=== PATIENT | male | born 1975 | race Caucasian/White ===

== ENCOUNTER 2021-01-26 08:31 | Outpatient (REF) | payer OTHER, SELFPAY ==
[2021-01-26 09:39] LABS: MANUAL DIFF FLAG NO
[2021-01-26 09:53] LABS: Basophils Absolute Auto 0.1 X10*3/uL (0.0-0.2); Basophils Percent Auto 0.8 % (0-2); Eosinophils Absolute Auto 0.2 X10*3/uL (0.0-0.4); Eosinophils Percent Auto 2.5 % (0-4); Hematocrit 45.2 % (42-52); Hemoglobin 14.9 g/dl (14.0-18.0); Imm Gran Abs Auto 0.03 X10*3/uL (0.00-0.03); Imm Gran Pct Auto 0.5 % (0.0-0.4); Lymphocytes Absolute Auto 1.9 X10*3/uL (1.2-4.9); Lymphocytes Percent Auto 31.3 % (20-40); Mean Corpuscular Hemoglobin 29.2 pg (27.0-33.0); Mean Corpuscular Volume 88.5 fL (80-98); Mean Platelet Volume 9.7 fL (9.4-12.4); Monocytes Absolute Auto 0.5 X10*3/uL (0.1-1.2); Monocytes Percent Auto 8.3 % (2-11); Neutrophils Absolute Auto 3.3 X10*3/uL (2.0-8.3); Neutrophils Percent Auto 56.6 % (45-73); Platelet Count 215 X10*3/uL (160-400); Red Blood Count 5.11 X10*6/uL (4.60-5.80); Red Cell Distribution Width 11.9 % (11.0-16.0); White Blood Count 5.9 X10*3/uL (4.8-10.8)
[2021-01-26 10:08] LABS: Alanine Aminotransferase 30 U/L (0-40); Albumin Level 4.2 g/dL (3.5-5.0); Alkaline Phosphatase 79 U/L (39-117); Anion Gap 12 (12-20); Aspartate Amino Transferase 17 U/L (5-37); Bilirubin Total 0.6 mg/dL (0.0-1.0); Blood Urea Nitrogen 14 mg/dL (9-16); Calcium 9.3 mg/dL (8.4-10.2); Carbon Dioxide 28 mmol/L (22-29); Chloride 106 mmol/L (96-108); Cholesterol 181 mg/dL; Estimated Glomerular Filt Rate > 60; Glucose Fasting 106 mg/dL (60-99); HDL Cholesterol 42 mg/dL; LDL Cholesterol Calculated 106 mg/dl; Potassium 4.5 mmol/L (3.3-5.1); Sodium 141 mmol/L (135-145); Total Protein 6.6 g/dL (6.5-8.0); Triglycerides 166 mg/dL
== END 2021-01-26 08:32 | disposition home or self-care (01) ==
LOC: HO.LAB 08:31
PROVIDERS: PCP Internal Medicine; Visit Provider Internal Medicine
DX: D64.9 Anemia, unspecified (principal); E78.5 Hyperlipidemia, unspecified; I10 Essential (primary) hypertension
CPT/HCPCS: 36415; 80053; 80061; 85025

== ENCOUNTER 2021-01-28 13:43 | Outpatient (REF) | payer OTHER, SELFPAY ==
--- NOTE | ~2021-01-28 | CT_ITS ---
EXAMINATION: CT ABDOMEN AND PELVIS WITH CONTRAST CLINICAL INFORMATION: R10.9 - Unspecified abdominal pain COMPARISON: None TECHNIQUE: Multidetector volumetric images were obtained from the superior aspect of the liver through the pubic symphysis following administration 85 mL of Omnipaque 350 intravenous contrast. Sagittal and coronal reformatted images were obtained on the technologist's workstation. Oral contrast: Yes This CT examination was performed using dose optimization techniques as appropriate, variously including the following: *Automated exposure control *Adjustment of mA and/or kV according to patient size (this includes techniques or standardized protocols for targeted exams where dose is matched to indication/reason for exam; i.e. extremities or head) *Use of iterative reconstruction technique DLP: 1181 mGy-cm FINDINGS: LUNG BASES: The visualized lung bases are unremarkable. LIVER, GALLBLADDER, AND BILIARY TREE: The liver is normal in size, shape, and attenuation. No focal hepatic lesion or biliary ductal dilatation is present. The gallbladder is unremarkable with no evidence of radiopaque gallstones, gallbladder wall thickening, or obvious pericholecystic inflammatory changes. PANCREAS: Unremarkable. SPLEEN: Upper limits of normal, 13.7 cm sagittal dimension but only 10.4 cm coronal. Homogeneous. ADRENAL GLANDS: Normal. KIDNEYS AND URETERS: The kidneys are normal in size and smooth in contour and enhance symmetrically. There is no hydronephrosis, hydroureter, or perinephric stranding. BLADDER: Unremarkable. GASTROINTESTINAL TRACT: There are focal inflammatory changes adjacent to the anterior aspect distal descending colon with central fatty attenuation, fine peripheral surrounding rim, and induration in the mesentery. The fatty component measures 0.7 x 2.9 x 2.2 cm. The findings are consistent with appendagitis epiploica. There is no proximal obstruction, pneumatosis, ascites, or fluid collection. The appendix is normal. The remainder of the bowel is unremarkable. There is gastric distention with retained food contents. The oral contrast is seen distally in small bowel and right colon. No gastric obstruction. ABDOMINAL WALL: Borderline fat-containing left inguinal hernia under 2 cm. LYMPH NODES: No lymphadenopathy. VASCULAR: Unremarkable. PELVIC VISCERA: Unremarkable. OSSEOUS STRUCTURES: Unremarkable. CT/CT abdomen pelvis w con IMPRESSION: 1. Findings consistent with appendagitis epiploica anterior left lower quadrant adjacent to distal descending colon. 2. Normal appendix. No bowel obstruction, ascites, or fluid collection.
[2021-01-28] MEDS: iohexoL 350 MG/ML 100 ML INFUS..BTL IV (16:07)
== END 2021-01-28 13:44 | disposition home or self-care (01) ==
LOC: HO.CT 13:43
PROVIDERS: PCP Internal Medicine; Visit Provider Internal Medicine
DX: R10.9 Unspecified abdominal pain (principal)
CPT/HCPCS: 74177; Q9967

== ENCOUNTER 2021-06-24 09:49 | Outpatient (REF) | payer OTHER, SELFPAY ==
--- NOTE | ~2021-06-24 | XR_ITS ---
EXAMINATION: XR CHEST CLINICAL INFORMATION: Cough COMPARISON: None TECHNIQUE: 2 views of the chest were obtained. FINDINGS: No significant abnormality is noted involving the heart, lungs, mediastinum, bony thorax or soft tissues. XR/XR chest 2V IMPRESSION: Unremarkable examination.
== END 2021-06-24 09:50 | disposition home or self-care (01) ==
LOC: HO.XRAY 09:49
PROVIDERS: PCP Internal Medicine; Visit Provider Nurse Practitioner Acute Care
DX: R05.9 Cough, unspecified (principal)
CPT/HCPCS: 71046

== ENCOUNTER → 2021-10-04 13:17 | Outpatient (BNVA) | payer OTHER, SELFPAY | PROVIDERS: PCP Internal Medicine; Visit Provider Surgery Vascular Surgery | DX: I83.11 Varicose veins of right lower extremity with inflammation (principal); Z87.891 Personal history of nicotine dependence | CPT/HCPCS: 99212 ==

== ENCOUNTER 2021-10-11 13:59 | Outpatient (REF) | payer OTHER, SELFPAY ==
--- NOTE | 2021-10-11 17:28 | PFT_ITS ---
FLOWS: FEV1 103% of predicted at 4.13 L. FVC 99% of predicted at 5.12 L. FEV1 to FVC ratio of 0.81. No bronchodilator response except in small to medium airways. LUNG VOLUMES: Total lung capacity 107% of predicted at 7.44 L. Residual volume 117% of predicted at 2.35 L. Slow vital capacity 102% of predicted at 5.09 L. Expiratory reserve volume 36% of predicted at 0.56 L. Diffusion capacity is normal. IMPRESSION: No obstructive or restrictive ventilatory defect. No bronchodilator response except in small to medium airways. Decreased expiratory reserve volume suggests extrathoracic restriction, likely secondary to abdominal obesity. Jw Lebron MD AP/MODL / [id number]
== END 2021-10-11 14:00 | disposition home or self-care (01) ==
LOC: HO.RESP 13:59
PROVIDERS: PCP Internal Medicine; Visit Provider Internal Medicine
DX: R05.8 Other specified cough (principal); R06.2 Wheezing
CPT/HCPCS: 94060; 94727; 94729

== ENCOUNTER 2021-10-13 12:53 | Outpatient (REF) | payer OTHER, SELFPAY ==
--- NOTE | ~2021-10-13 | US_ITS ---
EXAMINATION: BILATERAL LOWER EXTREMITY VENOUS ULTRASOUND (REFLUX EXAM) CLINICAL INDICATION: Bilateral lower extremity varicose veins. COMPARISON: None TECHNIQUE: Color flow triplex imaging and compression Doppler was performed to evaluate both the deep and the superficial systems bilaterally. To evaluate the superficial system, the examination was performed in the upright position. Color-flow Doppler ultrasound and compression ultrasound were utilized. In addition, maneuvers were utilized to demonstrate reflux. FINDINGS: SUPERFICIAL ULTRASOUND WITH DOPPLER OF RIGHT LOWER EXTREMITY GREAT SAPHENOUS VEIN: Saphenofemoral junction: 0.8 cm Max diameter: 0.8 cm Min diameter: 0.3 cm Reflux: No evidence of reflux greater than 0.5 seconds. DUPLICATED MEDIAL GREAT SAPHENOUS VEIN: Max Diameter: None Imaged Reflux: NA DUPLICATED LATERAL GREAT SAPHENOUS VEIN: Diameter: 0.4 cm at the junction. Reflux: None SMALL SAPHENOUS VEIN: Proximal Calf: 0.3 cm Distal Calf: 0.4 cm Reflux: No evidence of reflux. VEIN OF GIACOMINI: None Imaged. PERFORATORS: Location: Proximal and distal calf measuring 2 mm. Reflux: None VARICOSITIES: Location: None Imaged Reflux: NA DEEP VENOUS ULTRASOUND OF THE RIGHT LOWER EXTREMITY: Common Femoral Vein: Compressible, normal respiratory variation and augmented flow. Femoral vein: Compressible, normal color flow and augmentation. Popliteal Vein: Compressible, normal augmentation. Deep Reflux: There is greater than 0.6 seconds of reflux within the popliteal vein. Dobson's Cyst: There is no evidence of a Dobson's cyst. SUPERFICIAL ULTRASOUND WITH DOPPLER OF LEFT LOWER EXTREMITY GREAT SAPHENOUS VEIN: Saphenofemoral junction: 0.9 cm Max diameter: 0.9 cm Min diameter: 0.3 cm Reflux: No evidence of reflux. DUPLICATED MEDIAL GREAT SAPHENOUS VEIN: Max Diameter: None Imaged Reflux: NA DUPLICATED LATERAL GREAT SAPHENOUS VEIN: Diameter: 0.4 cm at the junction. Reflux: None SMALL SAPHENOUS VEIN: Proximal Calf: 0.3 cm Distal Calf: 0.3 cm Reflux: There is reflux throughout the small saphenous vein beginning at the proximal calf measuring greater than 1.3 seconds. VEIN OF GIACOMINI: None Imaged. PERFORATORS: Location: Proximal, mid and distal calf measuring 2 mm. Reflux: None VARICOSITIES: Location: Arising from the small saphenous vein, proximal thigh and at knee measuring between 3 and 4 mm. Reflux: The varicosity arising from the small saphenous vein demonstrates greater than 1.3 seconds of reflux. DEEP VENOUS ULTRASOUND OF THE LEFT LOWER EXTREMITY: Common Femoral Vein: Compressible, normal respiratory variation and augmented flow. Femoral vein: Compressible, normal color flow and augmentation. Popliteal Vein: Compressible, normal augmentation. Deep Reflux: There is no evidence of reflux in the deep system in either the common femoral vein or the popliteal vein. Dobson's Cyst: There is no evidence of a Dobson's cyst. US/US venous duplex LE BI IMPRESSION: 1. Left small saphenous venous insufficiency and left lower extremity varicosities. 2. Right popliteal deep venous insufficiency. 3. No evidence of DVT.
== END 2021-10-13 12:54 | disposition home or self-care (01) ==
LOC: HO.US 12:53
PROVIDERS: PCP Internal Medicine; Visit Provider Surgery Vascular Surgery
DX: I83.11 Varicose veins of right lower extremity with inflammation (principal)
CPT/HCPCS: 93970

== ENCOUNTER 2021-11-14 08:10 | Outpatient (REF) | payer OTHER, SELFPAY ==
--- NOTE | ~2021-11-14 | FL_ITS ---
EXAMINATION: XR FLUOROSCOPY UPPER GI WITH AIR CLINICAL INFORMATION: Cough. COMPARISON: None. TECHNIQUE: Routine upper GI air-contrast study was performed. FINDINGS: Following oral administration of thick barium and effervescent granules, there is normal propagation of bolus from the oral cavity through the pharynx and esophagus and into the stomach without any evidence of obstruction, narrowing or stricture. On placing patient supine and prone the course, caliber and peristalsis of stomach are normal. There is mild flocculation of barium suspicious for increased hyperacidity. There is mild gastroesophageal reflux without hiatal hernia. Incidental finding of an small diverticulum in the third segment of the duodenum. FLUOROSCOPY TIME: 1.8 minutes. DOSE AREA PRODUCT: 34.262 uGy-m2 (microgray-meter squared). FL/FL upper GI w air IMPRESSION: Moderate gastroesophageal reflux without hiatal hernia. Suspect hyperacidity. Small diverticulum in the third segment of the duodenum.
== END 2021-11-14 08:11 | disposition home or self-care (01) ==
LOC: HO.XRAY 08:10
PROVIDERS: PCP Internal Medicine; Visit Provider Internal Medicine
DX: R05.8 Other specified cough (principal); K21.9 Gastro-esophageal reflux disease without esophagitis
CPT/HCPCS: 74246

== ENCOUNTER 2022-11-14 05:55 | Outpatient (REF) | payer OTHER, SELFPAY ==
[2022-11-15 03:41] LABS: Syphilis Screen Nonreactive (Nonreactive)
[2022-11-15 03:50] LABS: HIV AB/AG Nonreactive (Nonreactive); HIV Num 1 0.09 S/CO (0.00-0.99)
[2022-11-23 11:58] LABS: HSV 1 IgM IFA Negative (Negative); HSV 2 IgM IFA Negative (Negative)
== END 2022-11-14 05:56 | disposition home or self-care (01) ==
LOC: HO.LAB 05:55
PROVIDERS: PCP Internal Medicine; Visit Provider Internal Medicine
DX: Z11.4 Encounter for screening for human immunodeficiency virus [HIV] (principal); Z20.2 Contact with and (suspected) exposure to infections with a predominantly sexual mode of transmission
CPT/HCPCS: 36415; 86695; 86696; 86780; 87389

== ENCOUNTER 2023-01-16 05:58 | Outpatient (REF) | payer OTHER, SELFPAY ==
[2023-01-16 06:12] LABS: MANUAL DIFF FLAG NO
[2023-01-16 07:12] LABS: Basophils Absolute Auto 0.1 X10*3/uL (0.0-0.2); Basophils Percent Auto 1.2 % (0-2); Eosinophils Absolute Auto 0.1 X10*3/uL (0.0-0.4); Eosinophils Percent Auto 2.4 % (0-4); Hematocrit 45.2 % (42.0-52.0); Imm Gran Abs Auto 0.03 X10*3/uL (0.00-0.03); Imm Gran Pct Auto 0.6 % (0.0-0.4); Lymphocytes Absolute Auto 1.6 X10*3/uL (1.2-4.9); Lymphocytes Percent Auto 32.3 % (20-40); Mean Corpuscular HGB Conc 33.2 g/dl (31.0-36.0); Mean Corpuscular Hemoglobin 29.2 pg (27.0-33.0); Mean Corpuscular Volume 88.1 fL (80.0-98.0); Mean Platelet Volume 9.5 fL (9.4-12.4); Monocytes Absolute Auto 0.5 X10*3/uL (0.1-1.2); Monocytes Percent Auto 10.8 % (2-11); Neutrophils Absolute Auto 2.6 x10*3/uL (2.0-8.3); Neutrophils Percent Auto 52.7 % (45-73); Platelet Count 223 X10*3/uL (160-400); Red Blood Count 5.13 X10*6/uL (4.60-5.80); Red Cell Distribution Width 11.9 % (11.0-16.0); White Blood Count 4.9 X10*3/uL (4.8-10.8)
[2023-01-16 07:23] LABS: Appearance Urine Turbid; Color Urine Dark Yellow; Glucose Urine UA Negative (Negative); Leukocyte Esterase Urine Negative (Negative); Nitrite Urine Negative (Negative); PH 5.5 (5.0-9.0); Specific Gravity - Urine 1.025 (1.005-1.025); Urine Blood Negative (Negative); Urine Ketones Negative (Negative); Urine Protein Negative (Neg-Trace)
[2023-01-16 07:56] LABS: Alanine Aminotransferase 36 U/L (0-40); Albumin Level 4.1 g/dL (3.5-5.0); Alkaline Phosphatase 76 U/L (39-117); Anion Gap 11 (12-20); Aspartate Amino Transferase 21 U/L (5-37); Bilirubin Total 0.9 mg/dL (0.0-1.0); Blood Urea Nitrogen 18 mg/dL (9-16); Calcium 9.2 mg/dL (8.4-10.2); Carbon Dioxide 29 mmol/L (22-29); Chloride 106 mmol/L (96-108); Cholesterol 173 mg/dL; Estimated Glomerular Filt Rate > 60; Glucose Fasting 113 mg/dL (60-99); HDL Cholesterol 35 mg/dL; LDL Cholesterol Calculated 99 mg/dl; Potassium 4.3 mmol/L (3.3-5.1); Sodium 142 mmol/L (135-145); Total Protein 6.6 g/dL (6.5-8.0); Triglycerides 198 mg/dL
[2023-01-16 08:02] LABS: Prostate Specific Antigen Scr 0.75 ng/mL (<0.05-4.0)
[2023-01-16 08:14] LABS: TSH reflex Free T4 1.63 uIU/mL (0.32-4.0); Vitamin D 25-OH Total 59.5 ng/mL (>30)
[2023-01-16 08:33] LABS: Estimated Average Glucose 105 mg/dL; Hemoglobin A1c % 5.3 %
== END 2023-01-16 05:59 | disposition home or self-care (01) ==
LOC: HO.LAB 05:58
PROVIDERS: PCP Internal Medicine; Visit Provider Internal Medicine
DX: Z00.00 Encounter for general adult medical examination without abnormal findings (principal); Z12.5 Encounter for screening for malignant neoplasm of prostate; I10 Essential (primary) hypertension; E78.00 Pure hypercholesterolemia, unspecified; R30.0 Dysuria; R73.9 Hyperglycemia, unspecified; E55.9 Vitamin D deficiency, unspecified
CPT/HCPCS: 36415; 80053; 80061; 81003; 82306; 83036; 84153; 84443; 85025

== ENCOUNTER 2023-02-14 13:42 | Outpatient (AMB) | payer OTHER, SELFPAY ==
[2023-02-14 13:44] VITALS: BP 150/80; PULSE 84; O2SAT 97; BMI 35.5
--- NOTE | 2023-02-14 13:44 | MHC.PC.OV ---
Vital Signs 02/14/23 13:44 Height 5 ft 10 in Weight 247 lb 6 oz BMI 35.5 BP 150/80 H Blood Pressure Location Lt brachial Position Sitting Pulse 84 Pulse Source Pulse Oximeter Pulse Oximetry (%) 97 Oxygen Delivery Method Room Air Intake Visit Reasons: [facility] Consultant Required: No Accompanied by: Self / Same As Patient Allergies No Known Allergies Allergy (Verified 02/19/23 04:09) Medication List - Last Reconciled 02/19/23 by Jewel Ocampo MD aspirin (Adult Low Dose Aspirin) 81 mg PO DAILY hydralazine 50 mg PO BID 90 days ibuprofen 800 mg PO Q8H PRN 14 days losartan 100 mg PO DAILY omeprazole 20 mg PO DAILY tamsulosin 0.4 mg PO DAILY Tobacco use date assessed: 02/14/23 Dental Screening Dental Screen Date: 02/14/23 Did you have a dental visit in the last 12 months?: No Did you have a dental problem in the last 6 months where you did not have access to dental care?: No Was dental information given to patient?: Patient has dentist HPI [facility] HPI Details Patient comes in today for his annual physical examination States that he feels okay Denies any headaches or dizziness Denies any chest pain, no shortness of breath No nausea /vomiting, no abdominal pain No change in bowel habits noted Denies any acute urinary symptoms Had his follow-up labs done last month - to discuss his results [facility] Medical History (Updated 02/19/23 @ 04:27 by Jewel Ocampo MD) BPH (benign prostatic hyperplasia) Dyslipidemia Essential hypertension GERD without esophagitis Impaired glucose tolerance Obesity (BMI 30-39.9) Surgical History History of prostate surgery Family History Father Diabetes Hypertension Mother Hypertension Family/Other Asthma Social History Housing: House Alcohol intake: current Alcohol intake frequency: a few times a month Alcohol type: beer Patient Tobacco Use Status: Former Tobacco user Tobacco use type: Cigarette e-Cigarette/Vaping Use: Never Used Second Hand Smoke Exposure: No service: No Current occupational status: employed Current occupational exposures/hazards: No Cognitive needs: No Hearing needs: No Vision needs: No Questionnaire PHQ-9 Over the last 2 weeks, how often have you been bothered by any of the following problems? 1. Little interest or pleasure in doing things: not at all 2. Feeling down, depressed, or hopeless: not at all 3. Trouble falling or staying asleep, or sleeping too much: not at all 4. Feeling tired or having little energy: not at all 5. Poor appetite or overeating: not at all 6. Feeling bad about yourself - or that you are a failure or have let yourself or your family down: not at all 7. Trouble concentrating on things, such as reading the newspaper or watching television: not at all 8. Moving or speaking so slowly that other people could have noticed. Or the opposite - being so fidgety or restless that you have been moving around a lot more than usual: not at all 9. Thoughts that you would be better off or of hurting yourself in some way: not at all Total score: 0 Depression Screening Interpretation: Negative [id number] - PHQ-9 Billing: Yes Source: Developed by Drs. Robert Stephenson, Noelle Hirsch, Luan Collazo and colleagues, with an educational vanessa from [employer]. Thrive Questionnaire Date Thrive assessed: 02/14/23 I am a: Patient What is your living situation today?: I have a steady place to live Within the past 12 months, did the food you bought not last and you didn't have the money to get more?: Never true Within the past 12 months, did you worry whether your food would run out before you got money to buy more?: Never true Do you have trouble paying for medicines?: No Do you have trouble getting transportation to medical appointments?: No Do you have trouble paying your heating and electricity bill?: No Do you have trouble taking care of your child, family member or friend?: No Do you have trouble with day-to-day activities such as bathing, preparing meals, shopping, managing finances, etc.?: No Are you currently unemployed and looking for a job?: No Are you interested in more education?: No Please select the resources that you would like help with: None Currently or been in a relationship where the following occur: no concerns reported AUDIT C Alcohol Use Questionnaire (AUDIT-C) 1. How often do you have a drink containing alcohol?: 2-4 times a month 2. How many drinks containing alcohol do you have on a typical day when you are drinking?: 1 or 2 3. How often do you have six or more drinks on one occasion?: Never Total Score: 2 Score Reviewed/Action Taken: Yes ARLEEN-7 AMB Questionnaire ARLEEN-7 Date ARLEEN - 7 assessed: 02/14/23 Feeling nervous, anxious, or on edge: 0 = Not at all Not being able to stop or control worryin = Not at all Worrying too much about different things: 0 = Not at all Trouble relaxin = Not at all Being so restless that it is hard to sit still: 0 = Not at all Becoming easily annoyed or irritable: 0 = Not at all Feeling afraid as if something awful might happen: 0 = Not at all Total ARLEEN-7 score (0-4 normal; 5-9 mild; 10-14 moderate; 15-21 severe): 0 Source: Developed by Drs. Robert Stephenson, Noelle Hirsch, Luan Collazo and colleagues, with an educational vanessa from [employer]. Review of Systems Const Denies chills, Denies fatigue, Denies fever(s), Denies headache(s), Denies malaise and Denies weakness Eyes Denies blurry vision, Denies change in vision, Denies irritation and Denies itchy eyes ENT Denies dysphagia, Denies dizziness, Denies otalgia, Denies headache(s), Denies nasal congestion, Denies neck pain, Denies odynophagia and Denies sore throat Card Denies chest pain, Denies rapid heart rate, Denies irregular heart rhythm, Denies palpitations and Denies dyspnea Resp Denies chest congestion, Denies cough, Denies dyspnea and Denies wheezing GI Denies abdominal pain, Denies bloating, Denies constipation, Denies dysphagia, Denies heartburn, Denies diarrhea, Denies nausea, Denies odynophagia and Denies vomiting Denies hematuria, Denies difficulty urinating, Denies dysuria, Denies urinary frequency and Denies urinary urgency Musc Denies back pain, Denies arthralgias, Denies joint swelling, Denies muscle weakness and Denies neck pain Skin/Breast Denies change in pigmentation, Denies lesions, Denies rash and Denies unusual bruising Neuro Denies dizziness, Denies headache(s), Denies paresthesias and Denies weakness Endo Denies fatigue and Denies palpitations Aller/Immun Denies itchy eyes and Denies wheezing Physical exam (Primary Care) Vital Signs: Last Vital Signs Pulse 84 02/14/23 13:44 BP 150/80 H 02/14/23 13:44 Pulse Ox 97 02/14/23 13:44 Oxygen Delivery Method Room Air 02/14/23 13:44 BMI result Body Mass Index 35.5 Tobacco/Smoking Status: Tobacco use Status Tobacco use date assessed 02/14/23 02/14/23 13:49 Patient Tobacco Use Status Former Tobacco user 02/14/23 13:44 Tobacco use type Cigarette 02/14/23 13:44 e-Cigarette/Vaping Use Never Used 02/14/23 13:44 PHQ-9: PHQ-9 Score PHQ-9: Total score 0 02/14/23 14:42 Depression Screening Interpretation: Negative Thrive Assessment: Date of Thrive Assessment Date Thrive assessed 02/14/23 02/14/23 13:49 Currently or been in a relationship where the following occur: no concerns reported Const General: no acute distress, alert and awake Orientation/consciousness: patient oriented x3 HENMT Head: Yes normocephalic and Yes atraumatic Ears: external ears normal, TM's normal bilaterally and EAC's normal General nose exam: No nasal discharge present Face and sinus: Yes normal facial exam and Yes sinuses nontender Teeth and gingiva: dentition normal Throat: Yes posterior oropharynx normal and Yes tonsils normal (no TP congestion) Eyes Eyelids: Yes eyelids normal Conjunctivae: conjunctivae normal Pupils: Equal, round and reactive pupils present EOM: EOMs intact bilaterally Neck Neck: Yes no lymphadenopathy and Yes supple Thyroid: Thyroid normal Resp Auscultation: clear to auscultation bilaterally, no rales and no wheezes Cardio Rate: regular rate Rhythm: regular rhythm Heart sounds: no murmurs GI Palpation (GI): Soft to palpation, nontender and No hepatosplenomegaly present Auscultation: normal bowel sounds General: Yes no CVA tenderness Back/Spine/Pelvis Back: no CVA tenderness Thoracic/Lumbar Spine: thoracic and lumbar spine normal to inspection Skin Lesions: no lesions Rashes: no rashes Neuro General: patient oriented x3, moves all extremities, no focal motor deficits and CN's II-XI intact bilaterally Cranial nerves: Yes Equal, round and reactive pupils present Cognition (Neuro): normal cognition Gait exam (Neuro): Normal gait present Extrem General: Yes no clubbing, cyanosis or edema Results Reviewed Results Reviewed: Laboratory Tests 01/16/23 01/16/23 01/16/23 06:10 06:11 06:11 WBC 4.9 Hgb 15.0 Hct 45.2 Plt Count 223 Sodium 142 Potassium 4.3 Creatinine 0.82 Estimated GFR > 60 Fasting Glucose 113 H Hemoglobin A1c % AST 21 ALT 36 Triglycerides 198 Cholesterol 173 LDL Cholesterol, Calc 99 HDL Cholesterol 35 PSA Screen 25-OH Vitamin D Total 59.5 TSH 1.63 Ur Specific [place] 1.025 Urine Protein Negative Urine Glucose (UA) Negative Urine Blood Negative 01/16/23 01/16/23 06:11 06:11 WBC Hgb Hct Plt Count Sodium Potassium Creatinine Estimated GFR Fasting Glucose Hemoglobin A1c % 5.3 AST ALT Triglycerides Cholesterol LDL Cholesterol, Calc HDL Cholesterol PSA Screen 0.75 25-OH Vitamin D Total TSH Ur Specific [place] Urine Protein Urine Glucose (UA) Urine Blood Assessment and Plan Assessment & Plan (1) Annual physical exam: Code(s): Z00.00 - Encounter for general adult medical examination without abnormal findings Plan: Results of his labs done last month reviewed and discussed with patient (2) Essential hypertension: Code(s): I10 - Essential (primary) hypertension Plan: Reinforced low sodium diet - goal is systolic BP of 120 mm or less Patient states that his blood pressure remains elevated/high most of the time when he checks it and he is concerned about this as 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 Continue Losartan 100 mg QD; will increase his Hydralazine to 50 mg BID (3) Dyslipidemia: Code(s): E78.5 - Hyperlipidemia, unspecified Plan: Reinforced low cholesterol diet (4) Impaired glucose tolerance: Code(s): R73.02 - Impaired glucose tolerance (oral) Plan: Reinforced low calorie diet/exercise as tolerated FBS was elevated at 113 mg/dL on his recent labs but his HgbA1c was normal at 5.3% (5) GERD without esophagitis: Code(s): K21.9 - Gastro-esophageal reflux disease without esophagitis Plan: Dietary restrictions reinforced Continue Omeprazole 20 mg QD (6) BPH (benign prostatic hyperplasia): Code(s): N40.0 - Benign prostatic hyperplasia without lower urinary tract symptoms Plan: S/P prostate surgery in 08/2016 Continue Tamsulosin 0.4 mg Q HS Follow up with urology as scheduled (7) Obesity (BMI 30-39.9): Code(s): E66.9 - Obesity, unspecified Plan: Reinforced diet/exercise as tolerated/lose weight (8) Colon cancer screening: Code(s): Z12.11 - Encounter for screening for malignant neoplasm of colon Plan: Will refer for screening colonoscopy Plan Follow up in 3 months Orders: Referrals Gastroenterology Referral Z12.11 - Encounter for screening for malignant neoplasm of colon Medications: Changed From hydralazine 25 mg PO BID 90 days 180 tabs 1RF To hydralazine 50 mg PO BID 90 days 180 tabs 1RF Coding Level of Care Code Est Pt Prev Care 40-64y(12630) Diagnoses Annual physical exam Z00.00 Essential hypertension I10 Dyslipidemia E78.5 Impaired glucose tolerance R73.02 GERD without esophagitis K21.9 BPH (benign prostatic hyperplasia) N40.0 Obesity (BMI 30-39.9) E66.9 Colon cancer screening Z12.11
== END 2023-02-14 14:42 | disposition home or self-care (01) ==
PROVIDERS: Visit Provider Internal Medicine
DX: Z00.00 Encounter for general adult medical examination without abnormal findings (principal); I10 Essential (primary) hypertension; Z68.35 Body mass index [BMI] 35.0-35.9, adult; E66.9 Obesity, unspecified; K21.9 Gastro-esophageal reflux disease without esophagitis; E78.5 Hyperlipidemia, unspecified; R73.02 Impaired glucose tolerance (oral); N40.0 Benign prostatic hyperplasia without lower urinary tract symptoms; Z12.11 Encounter for screening for malignant neoplasm of colon
CPT/HCPCS: 99396

== ENCOUNTER 2023-05-18 13:24 | Outpatient (AMB) | payer OTHER, SELFPAY ==
--- NOTE | 2023-05-18 13:32 | MHC.OFFVIS ---
Intake Vital Signs 05/18/23 13:33 Height 5 ft 10 in Weight 239 lb 8 oz BMI 34.4 BP 150/90 H Blood Pressure Location Lt brachial Position Sitting Respiration 17 Pulse 95 Pulse Source Pulse Oximeter Pulse Oximetry (%) 97 Oxygen Delivery Method Room Air Intake Visit Reasons: Hypertension Intake Note: Patient is here to follow up on HTN. 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 Accompanied by: Self / Same As Patient Allergies No Known Allergies Allergy (Verified 05/18/23 14:03) Medication List - Last Reconciled 05/18/23 by Jewel Ocampo MD amlodipine 5 mg PO DAILY 90 days aspirin (Adult Low Dose Aspirin) 81 mg PO DAILY hydralazine 50 mg PO BID 90 days ibuprofen 800 mg PO Q8H PRN 14 days losartan 100 mg PO DAILY omeprazole 20 mg PO DAILY tamsulosin 0.4 mg PO DAILY HPI Hypertension HPI Details Patient comes in today for his follow up visit States that he continues to experiencing a persistent ringing sensation in both of his ear and feels that the ringing is getting worse lately Also notes (+) trouble hearing - thinks that his ears may be clogged up again with ear wax but admits that heis having trouble hearing and this is starting to affect him both at home and at work and even now he has trouble hearing me during his office visit unless I speak up loudly Notes (+) memory issues on and off as well recently States that he would be talking to somebody and would literally completely forget what he was going to talk about in the middle of his conversation - states that this problem with his memory recall is very concerning to him, especially at his age He denies any headaches or dizziness Denies any chest pains, no SOB No nausea/vomiting, no abdominal pain No change in bowel habits noted [facility] Medical History GERD without esophagitis Obesity (BMI 30-39.9) BPH (benign prostatic hyperplasia) Dyslipidemia Impaired glucose tolerance Essential hypertension Surgical History History of prostate surgery Family History Father Diabetes Hypertension Mother Hypertension Family/Other Asthma Social History Housing: House Alcohol intake: current Alcohol intake frequency: a few times a month Alcohol type: beer Patient Tobacco Use Status: Former Tobacco user Tobacco use type: Cigarette e-Cigarette/Vaping Use: Never Used Second Hand Smoke Exposure: No service: No Current occupational status: employed Current occupational exposures/hazards: No Cognitive needs: No Hearing needs: No Vision needs: No Review of Systems Const Denies chills, Denies fatigue, Denies fever(s) and Denies headache(s) ENT Denies dysphagia, Denies dizziness, Denies otalgia, Denies headache(s), Reports hearing loss, Denies neck pain, Denies odynophagia, Reports tinnitus (in both ears - increasing lately) and Denies sore throat Card Denies chest pain, Denies rapid heart rate, Denies irregular heart rhythm, Denies palpitations and Denies dyspnea Resp Denies chest congestion, Denies cough, Denies dyspnea and Denies wheezing GI Denies abdominal pain, Denies constipation, Denies dysphagia, Denies heartburn, Denies diarrhea, Denies nausea, Denies odynophagia and Denies vomiting Denies hematuria, Denies difficulty urinating, Denies dysuria and Denies urinary frequency Musc Denies back pain, Denies arthralgias and Denies neck pain Skin/Breast Denies rash Neuro Denies dizziness, Denies headache(s), Reports memory loss (see HPI) and Denies paresthesias Psych Reports memory loss (see HPI) Endo Denies fatigue and Denies palpitations Aller/Immun Denies wheezing Physical Exam Vital Signs: Last Vital Signs Pulse 95 05/18/23 13:33 Resp 17 05/18/23 13:33 BP 150/90 H 05/18/23 13:33 Pulse Ox 97 05/18/23 13:33 Oxygen Delivery Method Room Air 05/18/23 13:33 BMI result Body Mass Index 34.4 Const General: no acute distress and alert HEENT Ears: unable to visualize TM (due to impacted cerumen ) bilaterally Throat: Yes posterior oropharynx normal and Yes tonsils normal (no TP congestion) Neck Neck: Yes no lymphadenopathy and Yes supple Resp Auscultation: clear to auscultation bilaterally, no rales and no wheezes Cardio Rate: regular rate Rhythm: regular rhythm Heart sounds: no murmurs GI Palpation (GI): Soft to palpation, nontender and No hepatosplenomegaly present Skin General skin exam: no rashes or lesions noted Extrem General: Yes no clubbing, cyanosis or edema Office Procedures Flu Questionnaire Does the patient have a severe egg allergy?: No Does the patient have severe life threatening allergies?: No Does the patient have a fever or illness today?: No Has the patient ever had Guillain-Happy Syndrome?: No Has the patient ever had any past reaction to a flu shot?: No Immunizations flu vacc [id number] 6mos up(PF) 60 mcg(15 mcgx4)/0.5 mL IM syringe Performing Provider: Jewel Ocampo MD [facility] Administered by: ROSALEE Wheeler on 05/18/23 13:44 Dose Route Admin Location Dispensed Lot Number Expiration Date NDC Cross Cut 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 0.5 mL IM Left Deltoid 0.5 mL [id number] 01/20/24 [id number] [employer] VIS Given Date VIS Provided VIS Publication Date 05/18/23 Single Vaccine 21 Eligibility Eligibility Date Funding Source Not VFC Eligible 05/18/23 Private Assessment & Plan Assessment & Plan (1) Essential hypertension: Code(s): I10 - Essential (primary) hypertension Plan: Reinforced low sodium diet - goal is systolic BP of at least 120 to 130 mm or less Continue Losartan 100 mg QD and Hydralazine 50 mg BID Will start him additionally on Amlodipine 5 mg QD Patient is reminded to continue monitoring his blood pressure regularly (2) Acute memory impairment: Code(s): R41.3 - Other amnesia Plan: Patient is expressing his concerns about memory impairment at his current age Relates that he has NO family history of dementia Will send for now for a head CT for further evaluation Advised that he will also likely be referred to neurology for further evaluation but we can wait and see how his head CT come out first (3) Tinnitus of both ears: Code(s): H93.13 - Tinnitus, bilateral Plan: Advised again that one of the more common reasons for tinnitus is hearing loss and that usually, it feels worse at night as everything is quiet and there are hardly any ambient noise at the time to help mask out the symptoms Will refer him to ENT for further evaluation and management and to evaluate his hearing (4) Impacted cerumen of both ears: Code(s): H61.23 - Impacted cerumen, bilateral Plan: Advised that both of his ears are almost completely impacted with cerumen and this will certainly affect his hearing States that he often has this problem and require his ears to be cleaned out more that once or twice a year and would like to know what he can do to help keep this from recurring often Will refer him to ENT for further evaluation and management (5) GERD without esophagitis: Code(s): K21.9 - Gastro-esophageal reflux disease without esophagitis Plan: Dietary restrictions reinforced Continue Omeprazole 20 mg QD (6) BPH (benign prostatic hyperplasia): Code(s): N40.0 - Benign prostatic hyperplasia without lower urinary tract symptoms Qualifiers: Lower urinary tract symptom presence: unspecified whether lower urinary tract symptoms present Qualified Code(s): N40.0 - Benign prostatic hyperplasia without lower urinary tract symptoms Plan: S/P prostate surgery in 08/2016 Continue Tamsulosin 0.4 mg Q HS Follow up with urology as scheduled (7) Obesity (BMI 30-39.9): Code(s): E66.9 - Obesity, unspecified Plan: Reinforced diet/exercise as tolerated/lose weight Plan Per request, flu vaccine given today Follow up in 3 months Orders: Orders Influenza [id number] Immunization Today Z23 - Encounter for immunization CT head/brain wo IV con Today H93.13 - Tinnitus, bilateral, I10 - Essential (primary) hypertension, R41.3 - Other amnesia Referrals Ear/Nose/Throat Referral H61.23 - Impacted cerumen, bilateral, H91.90 - Unspecified hearing loss, unspecified ear, H93.13 - Tinnitus, bilateral Medications: New amlodipine 5 mg PO DAILY 90 days 90 tabs 0RF Coding Level of Care Code Est Pt Level 4 (45653) Diagnoses Essential hypertension I10 Acute memory impairment R41.3 Tinnitus of both ears H93.13 Impacted cerumen of both ears H61.23 GERD without esophagitis K21.9 Benign prostatic hyperplasia, unspecified whether lower urinary tract symptoms present N40.0 Lower urinary tract symptom presence: unspecified whether lower urinary tract symptoms present Obesity (BMI 30-39.9) E66.9
[2023-05-18 13:33] VITALS: BP 150/90; PULSE 95; RESP 17; O2SAT 97; BMI 34.4
== END 2023-05-18 14:07 | disposition home or self-care (01) ==
PROVIDERS: PCP Internal Medicine; Visit Provider Internal Medicine
DX: I10 Essential (primary) hypertension (principal); R41.3 Other amnesia; H93.13 Tinnitus, bilateral; H61.23 Impacted cerumen, bilateral; K21.9 Gastro-esophageal reflux disease without esophagitis; N40.0 Benign prostatic hyperplasia without lower urinary tract symptoms; E66.9 Obesity, unspecified; Z23 Encounter for immunization
CPT/HCPCS: 90471; 90686; 99214

== ENCOUNTER 2023-05-22 07:59 | Outpatient (AMB) | payer OTHER, SELFPAY ==
--- NOTE | 2023-05-22 08:07 | MHC.OFFVIS ---
Intake Vital Signs 05/22/23 08:08 Height 5 ft 10 in Weight 239 lb BMI 34.3 BP 139/83 Blood Pressure Location Lt brachial Position Sitting Pulse 78 Intake Visit Reasons: Colonoscopy Screening Intake Note: Patient 1st pre colonoscopy screening. Patient denies any GI issues. 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 He is referred by Jewel Ocampo of [facility] primary care. PMX Hard of hearing High cholesterol Hypertension Impaired fasting glucose Varicose veins with peripheral vascular disease of the lower extremities BPH GERD * SURGICAL HISTORY Prostate surgery * ALLERGIES.: NKDA * [employer] LABS: Laboratory Tests 01/16/23 06:11 WBC 4.9 Hgb 15.0 Hct 45.2 Plt Count 223 Estimated GFR > 60 Hemoglobin A1c % 5.3 Total Bilirubin 0.9 AST 21 ALT 36 Alkaline Phosphata se 76 TSH 1.63 TODAY'S VISIT This is his first colonoscopy. His stools are softer but not problems, he has a hx of GERD that has not been active recently and he is not on any medications. There are no prior problems with anesthesia or sedation. He denies any cardiac or respiratory problems. No ID problems. His sister had bone cancer and was of unknown origin, no other known cancers or polyps. [facility] Medical History GERD without esophagitis Obesity (BMI 30-39.9) BPH (benign prostatic hyperplasia) Dyslipidemia Impaired glucose tolerance Essential hypertension Surgical History History of prostate surgery Family History Father Diabetes Hypertension Mother Hypertension Family/Other Asthma Social History Housing: House Alcohol intake: current Alcohol intake frequency: a few times a month Alcohol type: beer Patient Tobacco Use Status: Former Tobacco user Tobacco use type: Cigarette e-Cigarette/Vaping Use: Never Used Second Hand Smoke Exposure: No service: No Current occupational status: employed Current occupational exposures/hazards: No Cognitive needs: No Hearing needs: No Vision needs: No Review of Systems Const Denies fatigue, Denies fever(s), Denies night sweats, Denies poor appetite and Denies weight loss ENT Reports Normal hearing present, Denies dental pain, Denies dysphagia, Denies hearing loss, Denies mouth pain, Denies odynophagia, Denies throat swelling, Denies tongue swelling and Reports other (Dentition adequate) Card Reports no additional complaints Resp Reports no additional complaints GI Denies abdominal pain, Denies melena, Denies bloating, Denies hematochezia, Denies constipation, Denies GI cramping, Denies dysphagia, Denies excessive flatus, Denies early satiety, Denies heartburn, Denies diarrhea, Denies nausea, Denies odynophagia, Denies vomiting and Denies hematemesis Skin/Breast Denies pruritus, Denies lesions, Denies rash and Denies jaundice Neuro Reports Normal hearing present and Denies Abnormal speech present Endo Denies fatigue Aller/Immun Denies throat swelling and Denies tongue swelling Physical Exam Vital Signs: Last Vital Signs Pulse 78 05/22/23 08:08 BP 139/83 05/22/23 08:08 BMI result Body Mass Index 34.3 Const General: cooperative, no acute distress, well developed and well groomed Nutritional Appearance: well nourished and obese Orientation/consciousness: oriented to person, oriented to place and oriented to time Limitations: No language barrier HEENT Head: Yes normocephalic and Yes atraumatic Eyes General: appearance normal, both eyes and all related structures Pupils: Equal, round and reactive pupils present Neck Neck: Yes normal visual inspection and Yes no lymphadenopathy Thyroid: Thyroid normal Resp Effort & Inspection: normal respiratory effort and able to speak in complete sentences Auscultation: clear to auscultation bilaterally Cardio Rate: regular rate Rhythm: regular rhythm Heart sounds: Normal, physiologic split S2 sound present Peripheral pulses: radial pulses present and posterior tibial pulses present GI Inspection: No distended, No Abdominal panniculus present and Yes obesity Palpation (GI): Soft to palpation, nontender, no guarding, not rigid and No hepatosplenomegaly present Percussion: Yes normal to percussion Auscultation: normal bowel sounds Rectal Exam - Male: Yes deferred Skin General skin exam: no rashes or lesions noted, turgor normal, skin not dry, no jaundice, No spider nevi and no striae Rashes: no rashes Nails: normal Neuro General: oriented to person, oriented to place and oriented to time Cranial nerves: Yes Equal, round and reactive pupils present and Yes Normal hearing present Speech: No Abnormal speech present Extrem General: Yes normal to inspection, No clubbing, No cyanosis and No edema Psych Appearance: grossly normal and well kempt Mental Status: mental status grossly normal Speech and movement: Normal speech and movement present Affect: normal affect Attitude: cooperative Thought process: Normal thought process present and not confabulating Thought content: Normal thought content present Insight: Fair insight present (Psych) Judgement: Fair judgement present (Psych) Assessment & Plan Assessment & Plan (1) Pre-op examination: Code(s): Z01.818 - Encounter for other preprocedural examination Plan: This is his first colonoscopy. His stools are softer but not problems, he has a hx of GERD that has not been active recently and he is not on any medications. There are no prior problems with anesthesia or sedation. He denies any cardiac or respiratory problems. No ID problems. His sister had bone cancer and was of unknown origin, no other known cancers or polyps. Orders: Orders Colonoscopy - GI Use Only 05/22/23 Z01.818 - Encounter for other preprocedural examination Medications: New peg 3350-electrolytes 236-22.74-6.74 -5.86 gram (Golytely) until fecal effluent is clear; do not exceed a total volume of 2,000 mL 240 mL PO Q10M 4,000 mL 0RF 1 day Z12.11 - Encounter for screening for malignant neoplasm of colon bisacodyl (Dulcolax (bisacodyl)) 10 mg (2 x 5 mg) PO BEDTIME 4 tabs 0RF 2 days Coding Level of Care Code New Pt Level 3 (82681) Diagnoses Pre-op examination Z01.818
[2023-05-22 08:08] VITALS: BP 139/83; PULSE 78; BMI 34.3
== END 2023-05-22 08:37 | disposition home or self-care (01) ==
PROVIDERS: PCP Internal Medicine; Visit Provider Nurse Practitioner
DX: Z01.818 Encounter for other preprocedural examination (principal); Z12.11 Encounter for screening for malignant neoplasm of colon
CPT/HCPCS: S0285

== ENCOUNTER → 2023-05-22 07:59 | Outpatient (BNVA) | payer OTHER, SELFPAY | PROVIDERS: PCP Internal Medicine; Visit Provider Nurse Practitioner ==

== ENCOUNTER 2023-06-12 12:02 | Outpatient (AMB) | payer OTHER, SELFPAY ==
--- NOTE | 2023-06-12 12:32 | A.OFFPC_ITS ---
Vital Signs 06/12/23 12:33 Height 5 ft 10 in Weight 245 lb 2 oz BMI 35.2 BP 142/70 H Blood Pressure Location Lt brachial Position Sitting Pulse 78 Pulse Source Pulse Oximeter Pulse Oximetry (%) 97 Oxygen Delivery Method Room Air Intake Visit Reasons: cough, congestion x 2 weeks. 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 Accompanied by: Self / Same As Patient Allergies No Known Allergies Allergy (Verified 06/12/23 12:57) Medication List - Last Reconciled 06/12/23 by Jewel Ocampo MD amlodipine 5 mg PO DAILY 90 days aspirin (Adult Low Dose Aspirin) 81 mg PO DAILY bisacodyl (Dulcolax (bisacodyl)) 10 mg (2 x 5 mg) PO BEDTIME 2 days hydralazine 50 mg PO BID 90 days ibuprofen 800 mg PO Q8H PRN 14 days losartan 100 mg PO DAILY omeprazole 20 mg PO DAILY peg 3350-electrolytes 236-22.74-6.74 -5.86 gram (Golytely) 240 mL PO Q10M 1 day tamsulosin 0.4 mg PO DAILY Tobacco use date assessed: 06/12/23 Dental Screening Dental Screen Date: 06/12/23 Did you have a dental visit in the last 12 months?: No Did you have a dental problem in the last 6 months where you did not have access to dental care?: No Was dental information given to patient?: No HPI cough, congestion x 2 weeks. HPI Details Patient comes in today complaining of increased cough and congestion for over 2 weeks now States that his cough has gotten really bad at night that he has not been able to get much sleep at night for a few days now States that he has taken several OTC cough/cold meds lately with no relief Cough is mostly non-productive He relates (+) fatigue but denies any fever or sore throat He denies any chest pains; chest feels slightly congested but he denies feeling very SOB No nausea/vomiting, no abdominal pain No change in bowel habits noted [facility] Medical History GERD without esophagitis Obesity (BMI 30-39.9) BPH (benign prostatic hyperplasia) Dyslipidemia Impaired glucose tolerance Essential hypertension Surgical History History of prostate surgery Family History Father Diabetes Hypertension Mother Hypertension Family/Other Asthma Housing: House Alcohol intake: current Alcohol intake frequency: a few times a month Alcohol type: beer Patient Tobacco Use Status: Former Tobacco user Tobacco use type: Cigarette e-Cigarette/Vaping Use: Never Used Second Hand Smoke Exposure: No service: No Current occupational status: employed Current occupational exposures/hazards: No Cognitive needs: No Hearing needs: No Vision needs: No Questionnaire PHQ-9 Over the last 2 weeks, how often have you been bothered by any of the following problems? 1. Little interest or pleasure in doing things: not at all 2. Feeling down, depressed, or hopeless: not at all 3. Trouble falling or staying asleep, or sleeping too much: not at all 4. Feeling tired or having little energy: not at all 5. Poor appetite or overeating: not at all 6. Feeling bad about yourself - or that you are a failure or have let yourself or your family down: not at all 7. Trouble concentrating on things, such as reading the newspaper or watching television: not at all 8. Moving or speaking so slowly that other people could have noticed. Or the opposite - being so fidgety or restless that you have been moving around a lot more than usual: not at all 9. Thoughts that you would be better off or of hurting yourself in some way: not at all Total score: 0 Depression Screening Interpretation: Negative Depression Screening Done: Yes [id number] - PHQ-9 Billing: Yes Source: Developed by Drs. Robert Stephenson, Noelle Hirsch, Luan Collazo and colleagues, with an educational vanessa from [employer]. Thrive Questionnaire Date Thrive assessed: 06/12/23 I am a: Patient What is your living situation today?: I have a steady place to live Within the past 12 months, did the food you bought not last and you didn't have the money to get more?: Never true Within the past 12 months, did you worry whether your food would run out before you got money to buy more?: Never true Do you have trouble paying for medicines?: No Do you have trouble getting transportation to medical appointments?: No Do you have trouble paying your heating and electricity bill?: No Do you have trouble taking care of your child, family member or friend?: No Do you have trouble with day-to-day activities such as bathing, preparing meals, shopping, managing finances, etc.?: No Are you currently unemployed and looking for a job?: No Are you interested in more education?: No Please select the resources that you would like help with: None Currently or been in a relationship where the following occur: no concerns reported AUDIT C Alcohol Use Questionnaire (AUDIT-C) 1. How often do you have a drink containing alcohol?: 2-4 times a month 2. How many drinks containing alcohol do you have on a typical day when you are drinking?: 1 or 2 3. How often do you have six or more drinks on one occasion?: Never Total Score: 2 Score Reviewed/Action Taken: Yes ARLEEN-7 AMB Questionnaire ARLEEN-7 Date ARLEEN - 7 assessed: 06/12/23 Feeling nervous, anxious, or on edge: 0 = Not at all Not being able to stop or control worryin = Not at all Worrying too much about different things: 0 = Not at all Trouble relaxin = Not at all Being so restless that it is hard to sit still: 0 = Not at all Becoming easily annoyed or irritable: 0 = Not at all Feeling afraid as if something awful might happen: 0 = Not at all Total ARLEEN-7 score (0-4 normal; 5-9 mild; 10-14 moderate; 15-21 severe): 0 Source: Developed by Drs. Robert Stephenson, Noelle Hirsch, Luan Collazo and colleagues, with an educational vanessa from [employer]. Review of Systems Const Denies chills, Reports difficulty sleeping (due to increased coughing spells), Reports fatigue, Denies fever(s) and Denies headache(s) ENT Denies dysphagia, Denies dizziness, Denies otalgia, Denies headache(s), Reports nasal congestion, Denies neck pain, Denies odynophagia and Denies sore throat Card Denies chest pain, Denies palpitations and Denies dyspnea Resp Reports chest congestion (mild), Reports cough (recurrent/frequent, mostly non- productive), Denies dyspnea and Denies wheezing GI Denies abdominal pain, Denies constipation, Denies dysphagia, Denies heartburn, Denies diarrhea, Denies nausea, Denies odynophagia and Denies vomiting Denies dysuria, Denies nocturia and Denies urinary frequency Musc Denies neck pain Neuro Denies dizziness and Denies headache(s) Endo Reports fatigue and Denies palpitations Aller/Immun Denies wheezing Physical exam (Primary Care) Vital Signs: Last Vital Signs Pulse 78 06/12/23 12:33 BP 142/70 H 06/12/23 12:33 Pulse Ox 97 06/12/23 12:33 Oxygen Delivery Method Room Air 06/12/23 12:33 BMI result Body Mass Index 35.2 Tobacco/Smoking Status: Tobacco use Status Tobacco use date assessed 06/12/23 06/12/23 12:39 Patient Tobacco Use Status Former Tobacco user 06/12/23 12:39 Tobacco use type Cigarette 06/12/23 12:39 e-Cigarette/Vaping Use Never Used 06/12/23 12:39 PHQ-9: PHQ-9 Score PHQ-9: Total score 0 06/12/23 12:39 Depression Screening Interpretation: Negative Thrive Assessment: Date of Thrive Assessment Date Thrive assessed 06/12/23 06/12/23 12:39 Currently or been in a relationship where the following occur: no concerns reported Const General: no acute distress and alert HENMT Ears: TM's normal bilaterally and EAC's normal Throat: Yes posterior oropharynx normal and Yes tonsils normal (no TP congestion) Neck Neck: Yes no lymphadenopathy and Yes supple Resp Auscultation: no rales, rhonchi (scattered) throughout, no wheezes and bronchial breath sounds (occasional) bilateral Cardio Rate: regular rate Rhythm: regular rhythm Heart sounds: no murmurs GI Palpation (GI): Soft to palpation and nontender Auscultation: normal bowel sounds Skin General skin exam: no rashes or lesions noted Extrem General: Yes no clubbing, cyanosis or edema Assessment and Plan Assessment & Plan (1) Bronchitis: Code(s): J40 - Bronchitis, not specified as acute or chronic Plan: Will send patient to the lab [facility] to check him for possible COVID, RSV or flu Will start him empirically for now on Cefuroxime 500 mg BID x 10 days, as well as Cheratussin 5 mg Q 6 hours PRN for his severe cough but cautioned that this can cause drowsiness so he should take it only at bedtime if he is going to be driving, working or operating any equipments Plan Follow up as scheduled in July 2023 Orders: Orders SARS-CoV2/FLU/RSV Today J98.8 - Other specified respiratory disorders Medications: New cefuroxime axetil 500 mg PO BID 10 days 20 tabs 0RF codeine-guaifenesin 10-100 mg/5 mL 5 mL PO Q6H 7 days PRN 150 mL 0RF persistent cough Coding Level of Care Code Est Pt Level 3 (57596) Diagnoses Bronchitis J40
[2023-06-12 12:33] VITALS: BP 142/70; PULSE 78; O2SAT 97; BMI 35.2
== END 2023-06-12 13:09 | disposition home or self-care (01) ==
PROVIDERS: PCP Internal Medicine; Visit Provider Internal Medicine
DX: J40 Bronchitis, not specified as acute or chronic (principal)
CPT/HCPCS: 99213

== ENCOUNTER 2023-06-12 13:14 | Outpatient (REF) | payer OTHER, SELFPAY ==
[2023-06-12 16:07] LABS: Influenza A PCR NEGATIVE (Negative); Influenza B PCR NEGATIVE (Negative); Resp Syncy Virus RNA Qual PCR NEGATIVE (Negative); SARS COV2 PCR INHOUSE NEGATIVE (Negative)
== END 2023-06-12 13:15 | disposition home or self-care (01) ==
LOC: HO.LAB 13:14
PROVIDERS: PCP Internal Medicine; Visit Provider Internal Medicine
DX: Z11.52 Encounter for screening for COVID-19 (principal); Z20.822 Contact with and (suspected) exposure to COVID-19; J98.8 Other specified respiratory disorders
CPT/HCPCS: 0241U

== ENCOUNTER 2023-06-13 07:31 | Outpatient (REF) | payer OTHER, SELFPAY ==
--- NOTE | ~2023-06-13 | CT_ITS ---
EXAMINATION: CT HEAD WITHOUT CONTRAST CLINICAL INFORMATION: Amnesia. COMPARISON: None. TECHNIQUE: Contiguous axial imaging was performed from the skullbase to vertex without intravenous administration of contrast. This CT examination was performed using dose optimization techniques as appropriate, variously including the following: *Automated exposure control *Adjustment of mA and/or kV according to patient size (this includes techniques or standardized protocols for targeted exams where dose is matched to indication/reason for exam; i.e. extremities or head) *Use of iterative reconstruction technique DLP: 716 mGy-cm. FINDINGS: There is no evidence of acute intracranial hemorrhage or territorial infarction. No abnormal mass effect or midline shift is seen. Muniz to white matter differentiation is well preserved. No extra-axial fluid collections are identified. The ventricles are normal in size. There is no abnormal attenuation within the brain parenchyma. The osseous structures and soft tissues are normal. The mastoid air cells are well aerated. There is mild to moderate ethmoid sinus mucosal thickening with partially visualized aerosolized mucosal secretions in the maxillary sinuses. Very mild mucosal thickening also visible in the dependent right sphenoid sinus. CT/CT head/brain wo IV con IMPRESSION: No acute intracranial pathology. [id number] mucosal thickening in the ethmoid sinus air cells with partially visualized aerosolized mucosal secretions in the left maxillary antrum.
== END 2023-06-13 07:32 | disposition home or self-care (01) ==
LOC: HO.CT 07:31
PROVIDERS: PCP Internal Medicine; Visit Provider Internal Medicine
DX: R41.3 Other amnesia (principal); I10 Essential (primary) hypertension; H93.13 Tinnitus, bilateral
CPT/HCPCS: 70450

== ENCOUNTER 2023-07-03 09:00 | Outpatient (REF) | payer OTHER, SELFPAY ==
[2023-07-03 11:47] LABS: Appearance Urine Cloudy; Color Urine Yellow; Glucose Urine UA >=1000 mg/dL (Negative); Leukocyte Esterase Urine Moderate (2+) (Negative); Nitrite Urine Positive (Negative); PH 5.5 (5.0-9.0); UMIC TRIGGER UACC YES; Urine Blood Large (3+) (Negative); Urine Ketones Negative (Negative); Urine Protein 30 (1+) mg/dL (Neg-Trace)
[2023-07-03 11:53] LABS: Bacteria Urine 2+ (None Seen); Hyaline Casts Urine 0-2 /LPF (0-2); RBC Urine >20 /HPF (0-2); Squamous Epithelial Cell Urine 0-2 /HPF (0-2); UACC Culture Trigger YES; WBC Urine >50 /HPF (0-5)
== END 2023-07-03 09:01 | disposition home or self-care (01) ==
LOC: HO.LAB 09:00
PROVIDERS: PCP Internal Medicine; Visit Provider Internal Medicine
DX: R39.9 Unspecified symptoms and signs involving the genitourinary system (principal)
CPT/HCPCS: 81001; 87086; 87088; 87186

== ENCOUNTER 2023-08-21 14:50 | Outpatient (AMB) | payer OTHER, SELFPAY ==
[2023-08-21 14:52] VITALS: BP 134/76; PULSE 69; O2SAT 97; BMI 34.6
--- NOTE | 2023-08-21 14:52 | MHC.PC.OV ---
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 Required: No Accompanied by: Self / Same As Patient Allergies No Known Allergies Allergy (Verified 02/18/24 12:59) Medication List - Last Reconciled 08/21/23 by Jewel Ocampo MD amlodipine 5 mg PO DAILY 90 days aspirin (Adult Low Dose Aspirin) 81 mg PO DAILY bisacodyl (Dulcolax (bisacodyl)) 10 mg (2 x 5 mg) PO BEDTIME 2 days hydralazine 50 mg PO BID 90 days ibuprofen 800 mg PO Q8H PRN 14 days losartan 100 mg PO DAILY omeprazole 20 mg PO DAILY peg 3350-electrolytes 236-22.74-6.74 -5.86 gram (Golytely) 240 mL PO Q10M 1 day tamsulosin 0.4 mg PO DAILY Tobacco use date assessed: 08/21/23 Dental Screening Dental Screen Date: 08/21/23 Did you have a dental visit in the last 12 months?: Yes Did you have a dental problem in the last 6 months where you did not have access to dental care?: No Was dental information given to patient?: Patient has dentist HPI HTN, tinnitus, memory impairment HPI Details Patient comes in today for his follow up visit States that he feels okay He denies any headaches or dizziness Notes that the ringing sensation that he's had in his ears for a while seems to have actually calmed down lately; he denies any ear pain or discomfort He would like to know if his head CT done a couple of months ago came out okay He denies any chest pains, no SOB No nausea/vomiting, no abdominal pain No change in bowel habits noted States that he's had no problems with Amlodipine ever since he was started on it about 3 months ago FOR[facility]LY [facility], [facility] Medical History GERD without esophagitis Obesity (BMI 30-39.9) BPH (benign prostatic hyperplasia) Dyslipidemia Impaired glucose tolerance Essential hypertension Surgical History H/O colonoscopy History of prostate surgery Family History Father Diabetes Hypertension Mother Hypertension Family/Other Asthma Social History Housing: House Alcohol intake: current Alcohol intake frequency: a few times a month Alcohol type: beer Patient Tobacco Use Status: Former Tobacco user Tobacco use type: Cigarette e-Cigarette/Vaping Use: Never Used Second Hand Smoke Exposure: No service: No Current occupational status: employed Current occupational exposures/hazards: No Cognitive needs: No Hearing needs: No Vision needs: No Questionnaire PHQ-9 Over the last 2 weeks, how often have you been bothered by any of the following problems? 1. Little interest or pleasure in doing things: not at all 2. Feeling down, depressed, or hopeless: not at all 3. Trouble falling or staying asleep, or sleeping too much: not at all 4. Feeling tired or having little energy: not at all 5. Poor appetite or overeating: not at all 6. Feeling bad about yourself - or that you are a failure or have let yourself or your family down: not at all 7. Trouble concentrating on things, such as reading the newspaper or watching television: not at all 8. Moving or speaking so slowly that other people could have noticed. Or the opposite - being so fidgety or restless that you have been moving around a lot more than usual: not at all 9. Thoughts that you would be better off or of hurting yourself in some way: not at all Total score: 0 Depression Screening Interpretation: Negative Depression Screening Done: Yes 51096 - PHQ-9 Billing: Yes Source: Developed by Drs. Robert Stephenson, Noelle Hirsch, Luan Collazo and colleagues, with an educational vanessa from [employer]. Thrive Questionnaire Date Thrive assessed: 08/21/23 I am a: Patient What is your living situation today?: I have a steady place to live Within the past 12 months, did the food you bought not last and you didn't have the money to get more?: Never true Within the past 12 months, did you worry whether your food would run out before you got money to buy more?: Never true Do you have trouble paying for medicines?: No Do you have trouble getting transportation to medical appointments?: No Do you have trouble paying your heating and electricity bill?: No Do you have trouble taking care of your child, family member or friend?: No Do you have trouble with day-to-day activities such as bathing, preparing meals, shopping, managing finances, etc.?: No Are you currently unemployed and looking for a job?: No Are you interested in more education?: No Please select the resources that you would like help with: None Currently or been in a relationship where the following occur: no concerns reported THRIVE Score: 0 AUDIT C Alcohol Use Questionnaire (AUDIT-C) 1. How often do you have a drink containing alcohol?: 2-4 times a month 2. How many drinks containing alcohol do you have on a typical day when you are drinking?: 1 or 2 3. How often do you have six or more drinks on one occasion?: Never Total Score: 2 Score Reviewed/Action Taken: Yes ARLEEN-7 AMB Questionnaire ARLEEN-7 Date ARLEEN - 7 assessed: 08/21/23 Feeling nervous, anxious, or on edge: 0 = Not at all Not being able to stop or control worryin = Not at all Worrying too much about different things: 0 = Not at all Trouble relaxin = Not at all Being so restless that it is hard to sit still: 0 = Not at all Becoming easily annoyed or irritable: 0 = Not at all Feeling afraid as if something awful might happen: 0 = Not at all Total ARLEEN-7 score (0-4 normal; 5-9 mild; 10-14 moderate; 15-21 severe): 0 Source: Developed by Drs. Robert Stephenson, Noelle Hirsch, Luan Collazo and colleagues, with an educational vanessa from [employer]. Review of Systems Const Denies chills, Denies fatigue, Denies fever(s) and Denies headache(s) ENT Denies dysphagia, Denies dizziness, Denies otalgia, Denies headache(s), Denies neck pain, Denies odynophagia, Reports tinnitus (on and off) and Denies sore throat Card Denies chest pain, Denies palpitations and Denies dyspnea Resp Denies chest congestion, Denies cough, Denies dyspnea and Denies wheezing GI Denies abdominal pain, Denies constipation, Denies dysphagia, Denies heartburn, Denies diarrhea, Denies nausea, Denies odynophagia and Denies vomiting Denies dysuria, Denies nocturia and Denies urinary frequency Musc Denies back pain and Denies neck pain Skin/Breast Denies rash Neuro Denies dizziness and Denies headache(s) Endo Denies fatigue and Denies palpitations Aller/Immun Denies wheezing Physical exam (Primary Care) Vital Signs: Last Vital Signs Pulse 69 08/21/23 14:52 BP 134/76 08/21/23 14:52 Pulse Ox 97 08/21/23 14:52 Oxygen Delivery Method Room Air 08/21/23 14:52 BMI result Body Mass Index 34.6 Tobacco/Smoking Status: Tobacco use Status Tobacco use date assessed 08/21/23 08/21/23 14:55 Patient Tobacco Use Status Former Tobacco user 08/21/23 14:55 Tobacco use type Cigarette 08/21/23 14:55 e-Cigarette/Vaping Use Never Used 08/21/23 14:55 PHQ-9: PHQ-9 Score PHQ-9: Total score 0 08/21/23 15:34 Depression Screening Interpretation: Negative Thrive Assessment: Date of Thrive Assessment Date Thrive assessed 08/21/23 08/21/23 14:55 Currently or been in a relationship where the following occur: no concerns reported Const General: no acute distress and alert HENMT Ears: TM's normal bilaterally and EAC's normal Throat: Yes posterior oropharynx normal and Yes tonsils normal (no TP congestion) Neck Neck: Yes no lymphadenopathy and Yes supple Thyroid: Thyroid normal Resp Auscultation: clear to auscultation bilaterally, no rales and no wheezes Cardio Rate: regular rate Rhythm: regular rhythm Heart sounds: no murmurs GI Palpation (GI): Soft to palpation and nontender Auscultation: normal bowel sounds General: Yes no CVA tenderness Back/Spine/Pelvis Back: no CVA tenderness Skin Rashes: no rashes Extrem General: Yes no clubbing, cyanosis or edema Assessment and Plan Assessment & Plan (1) Essential hypertension: Code(s): I10 - Essential (primary) hypertension Plan: Reinforced low sodium diet - goal is systolic BP of 120 mm or less Continue Losartan 100 mg QD, Amlodipine 5 mg QD and Hydralazine 50 mg BID - his BP appears to be doing much better with the addition of Amlodipine 5 mg QD 3 months ago in April 2023 Patient is reminded to continue monitoring his blood pressure regularly (2) Acute memory impairment: Code(s): R41.3 - Other amnesia Plan: Have reassured patient that his head CT done back in May 2023 came out completely normal Advised that if he remains concerned about his memory issues, we can refer him to neurology for further evaluation and management but he states that he is doing much better now and prefers to hold off on neurology referral at this time (3) Dyslipidemia: Code(s): E78.5 - Hyperlipidemia, unspecified Plan: Reinforced low cholesterol diet Will have him recheck his labs and fasting lipids in 6 months for follow up (4) Impaired glucose tolerance: Code(s): R73.02 - Impaired glucose tolerance (oral) Plan: Reinforced low calorie diet/exercise as tolerated FBS was elevated at 113 mg/dL when previously checked last December 2022 but his HgbA1c was normal at 5.3% back then (5) GERD without esophagitis: Code(s): K21.9 - Gastro-esophageal reflux disease without esophagitis Plan: Dietary restrictions reinforced Continue Omeprazole 20 mg QD (6) BPH (benign prostatic hyperplasia): Code(s): N40.0 - Benign prostatic hyperplasia without lower urinary tract symptoms Qualifiers: Lower urinary tract symptom presence: unspecified whether lower urinary tract symptoms present Qualified Code(s): N40.0 - Benign prostatic hyperplasia without lower urinary tract symptoms Plan: S/P prostate surgery in 08/2016 Continue Tamsulosin 0.4 mg Q HS Follow up with urology as scheduled (7) Obesity (BMI 30-39.9): Code(s): E66.9 - Obesity, unspecified Plan: Reinforced diet/exercise as tolerated/lose weight Plan To return as scheduled in January 2024 for his annual physical examination Orders: Orders Complete Blood Count Auto Diff 02/04/24 D64.9 - Anemia, unspecified UA CC w/rflx Micro + Cult 02/04/24 R30.0 - Dysuria Comprehensive [place]. Panel Fast 02/04/24 E78.00 - Pure hypercholesterolemia, unspecified Lipid Panel 02/04/24 E78.00 - Pure hypercholesterolemia, unspecified TSH reflex Free T4 02/04/24 E78.00 - Pure hypercholesterolemia, unspecified Prostate Specific Antigen Scr 02/04/24 Z00.00 - Encounter for general adult medical examination without abnormal findings Vitamin D 25-OH Total 02/04/24 E55.9 - Vitamin D deficiency, unspecified Coding Level of Care Code Est Pt Level 4 (38547) Diagnoses Essential hypertension I10 Acute memory impairment R41.3 Dyslipidemia E78.5 Impaired glucose tolerance R73.02 GERD without esophagitis K21.9 Benign prostatic hyperplasia, unspecified whether lower urinary tract symptoms present N40.0 Lower urinary tract symptom presence: unspecified whether lower urinary tract symptoms present Obesity (BMI 30-39.9) E66.9
== END 2023-08-21 15:40 | disposition home or self-care (01) ==
PROVIDERS: PCP Internal Medicine; Visit Provider Internal Medicine
DX: I10 Essential (primary) hypertension (principal); R41.3 Other amnesia; E78.5 Hyperlipidemia, unspecified; R73.02 Impaired glucose tolerance (oral); K21.9 Gastro-esophageal reflux disease without esophagitis; N40.0 Benign prostatic hyperplasia without lower urinary tract symptoms; E66.9 Obesity, unspecified
CPT/HCPCS: 99499

== ENCOUNTER 2023-11-02 06:51 | Day surgery (SDC) | payer OTHER, SELFPAY ==
[2023-10-31 10:56] VITALS: BMI 34.3
--- NOTE | 2023-11-01 11:58 | HO.ANESPROP2 ---
Documented by User: Gloria Munoz NP 11/01/23 11:59 HPI - Anesthesia Eval Consult details Narrative: 48yo M for Colonoscopy PMFSH Active Problems Active Problems: All Active Problems Pre-op examination (Acute) Acute memory impairment (Acute) Impacted cerumen of both ears (Acute) Tinnitus of both ears (Acute) Hearing impairment (Acute) False positive test for syphilis (Acute) GERD without esophagitis (Acute) Colon cancer screening (Acute) Obesity (BMI 30-39.9) (Acute) Annual physical exam (Acute) Varicose veins of right lower extremity with inflammation (Acute) Recurrent cough (Acute) Peripheral vascular disease of lower extremity (Acute) Bronchitis (Acute) Cough (Acute) Runny nose (Acute) Abdominal pain (Acute) BPH (benign prostatic hyperplasia) (Acute) Dyslipidemia (Acute) Impaired glucose tolerance (Acute) Essential hypertension (Acute) Past Medical History Medical History GERD without esophagitis Obesity (BMI 30-39.9) BPH (benign prostatic hyperplasia) Dyslipidemia Impaired glucose tolerance Essential hypertension Family History Family History Father Diabetes Hypertension Mother Hypertension Family/Other Asthma Surgical History Surgical History History of prostate surgery Social History Social History Housing: House Alcohol intake: current Alcohol intake frequency: a few times a month Alcohol type: beer Patient Tobacco Use Status: Former Tobacco user Tobacco use type: Cigarette e-Cigarette/Vaping Use: Never Used Second Hand Smoke Exposure: No Are you DNR?: No Advance Directives: No Advance Directives Information Provided: Yes Nutrition Risks: No Nutritional Risk service: No Current occupational status: employed Current occupational exposures/hazards: No Cognitive needs: No Hearing needs: No Vision needs: No Meds Allergies Allergy/AdvReac Type Severity Reaction Status Date / Time No Known Allergies Allergy Verified 11/02/23 07:08 Home Medications ?Medication ?Instructions ?Recorded ?Confirmed ?Last Taken ?Type aspirin 81 mg tablet,delayed 81 mg PO DAILY 05/24/21 11/02/23 Unknown History release (Adult Low Dose Aspirin) Exam Height,Weight and Vital Signs: Height 5 ft 10 in Weight 108.409 kg Assessment and Plan Assessment Anesthesia Assessment: Chart Reviewed Documented by User: Sugar Price MD 11/02/23 08:01 [facility] Past Medical History Medical History GERD without esophagitis Obesity (BMI 30-39.9) BPH (benign prostatic hyperplasia) Dyslipidemia Impaired glucose tolerance Essential hypertension Family History Family History Father Diabetes Hypertension Mother Hypertension Family/Other Asthma Family history of problems with anesthesia: No Surgical History Surgical History History of prostate surgery History of Problems with Anesthesia: No Social History Social History Housing: House Alcohol intake: current Alcohol intake frequency: a few times a month Alcohol type: beer Patient Tobacco Use Status: Former Tobacco user Tobacco use type: Cigarette e-Cigarette/Vaping Use: Never Used Second Hand Smoke Exposure: No Are you DNR?: No Advance Directives: No Advance Directives Information Provided: Yes Nutrition Risks: No Nutritional Risk service: No Current occupational status: employed Current occupational exposures/hazards: No Cognitive needs: No Hearing needs: No Vision needs: No Meds Allergies Allergy/AdvReac Type Severity Reaction Status Date / Time No Known Allergies Allergy Verified 11/02/23 07:08 Home Medications ?Medication ?Instructions ?Recorded ?Confirmed ?Last Taken ?Type aspirin 81 mg tablet,delayed 81 mg PO DAILY 05/24/21 11/02/23 Unknown History release (Adult Low Dose Aspirin) Exam Airway Mallampati Class: II TM Dist: >3cm Neck ROM: Full Heart: rrr Lungs: cta Assessment and Plan Assessment Anesthesia Assessment: Anesthesia Plan Discussed Final Anesthetic Review Family History of Problems with Anesthesia: No History of Problems with Anesthesia: No NPO: Yes ASA Class: III Final Preanesthetic Review: No Changes in Pt Med Stat, Meds/Allgs Chart Reviewed, Consent Obtained/Reviewed and Anes Risks/Benef Reviewed Patient Risk: Intermediate Procedure Risk: Low Anesthetic Plan Anesthetic Plan: MAC: Disposition: Standard PACU
[2023-11-02 07:06] VITALS: BMI 33.7
[2023-11-02] MEDS: Lactated Ringers 1,000 ML 100 ML IVCONT (07:14)
[2023-11-02 07:19] VITALS: BP 128/79; PULSE 73; RESP 18; TEMP 36.5; O2SAT 98
--- NOTE | 2023-11-02 08:14 | P.HPSUR_ITS ---
Pre-Procedural Eval Section A - 24 Hr Update-Section A only Date of Service: 11/02/23 The patient is an INPATIENT: No The patient has been examined within 24 hours of the surgical procedure. The History & Physical has been completed within 30 days and I have reviewed it.: No Section B - Complete if H&P > 30 days Chief Complaint: Colon cancer screening Relevant Family History (Specify if Yes): No Relevant Social History: Tobacco Use (Former smoker) Present Medications: see Short Stay Collaborative assessment Medical History: Significant History (GERD without esophagitis Obesity (BMI 30- 39.9) BPH (benign prostatic hyperplasia) Dyslipidemia Impaired glucose tolerance Essential hypertension) History of Previous Operations: Relevant previous surgery/procedure and date(s) (History of prostate surgery) Allergies: Allergies Allergy/AdvReac Type Severity Reaction Status Date / Time No Known Allergies Allergy Verified 11/02/23 07:08 Review of Systems Sugical H&P ROS: Negative: Constitution, Cardiovascular, Respiratory and Gastrointestinal Exam Surgical H&P Exam: Normal: Heart, Normal: Lungs, Normal: Extremities and Normal: Abdomen Plan Diagnosis/Plan: Unchanged I have reviewed the history and physical and performed a pertinent physical examination on my patient. No changes have occurred unless specified. Time Spent With Patient Time: Total time managing care of this patient today ____ minutes.
--- NOTE | 2023-11-02 08:29 | W.PM.OPN ---
Operative Note Operative Note Date of Service: 11/02/23 Narrative: COLONOSCOPY TILL CECUM WITH SNARE POLYPECTOMY, SUBMUCOSAL INJECTION AND HEMOCLIP PLACEMENT Pre-op diagnosis: Colon cancer screening (First colonoscopy). Post-op diagnosis:? Colon polyps, Diverticulosis, hemorrhoids Endoscopist:? Ning Gatica MD Anesthesia:?MAC Consent: Indications for the procedure and potential complications of bleeding, perforation, reaction to medications and missed diagnosis were discussed with the patient and informed consent was obtained. Instrument: Olympus CF H 190 L variable stiffness adult colonoscope Monitoring: Vital signs and clinical assessment, intermittent blood pressure monitoring, continuous EKG monitoring, Pulse oximetry and Carbon Dioxide monitoring were done throughout the procedure. Please see anesthesia flowsheet. Colon withdrawl time was 39 minutes. Procedure: The patient was placed in the left lateral decubitis position and pre-procedure medications were administered. After a digital rectal examination of the ano-rectum, the video colonoscope was inserted into the rectum and advanced through the colon to the cecum. The colonoscope was slowly withdrawn in a retrograde panoramic fashion and the colon mucosa was carefully examined including a retroflexed view of the rectum. Findings and interventions are described below. Procedure Difficulty: without difficulty Findings: Terminal Ileum: Not evaluated Cecum: Normal Ascending Colon: A 10-12 mm sessile polyp in the proximal AC overlying a fold - removed with a hot snare Transverse Colon: Normal Descending Colon: Normal Sigmoid Colon: Two 2.5 cms sessile polyps at 20 to 25 cms - removed with a hot snare. Polypectomy sites were closed with 1 hemoclip at each site and marked by Tomasa ink. Two 10-15 mm sessile polyps at 20 to 25 cms - removed with a hot snare. Moderate diverticulosis Rectum: Normal Ano-rectum: Moderate internal hemorrhoids Colon preparation: Good after copious irrigation. [place] Bowel Preparation Scale Right colon; 2 Transverse colon: 2 Left colon; 2 (0 = Unprepared colon segment with mucosa not seen due to solid stool that cannot be cleared. 1 = Portion of mucosa of the colon segment seen, but other areas of the colon segment not well seen due to staining, residual stool and/or opaque liquid. 2 = Minor amount of residual staining, small fragments of stool and/or opaque liquid, but mucosa of colon segment seen well. 3 = Entire mucosa of colon segment seen well with no residual staining, small fragments of stool or opaque liquid) Impression and Post Procedure Diagnosis: Colonoscopy Findings: Two large and three medium sized polyps were removed Moderate diverticulosis seen in the sigmoid colon Moderate hemorrhoids on retroflexed exam. Plan: Pt has a FU appointment on 11/16/23 with Merline Carlisle NP. Repeat Colonoscopy in 1-2 years if polyps are adenomatous and 10 year if polyps are hyperplastic. (Needs addition of dulcolax for colon prep and an adult colonoscope for future colonoscopies) Above findings were reviewed with the patient and relevant handouts were given and the discharge area.
[2023-11-02 09:28] VITALS: BP 119/68; PULSE 91; RESP 14; TEMP 36.6; O2SAT 93
[2023-11-02 09:40] VITALS: BP 117/68; PULSE 65; RESP 16; TEMP 36.6; O2SAT 97
== END 2023-11-02 10:40 | disposition home or self-care (01) ==
PROVIDERS: PCP Internal Medicine; Visit Provider Internal Medicine Gastroenterology
PROC: 0DJD8ZZ Inspection of Lower Intestinal Tract, Via Natural or Artificial Opening Endoscopic (ICD-10-PCS; CPT 45378; principal; 2023-11-02 08:30)
DX: Z12.11 Encounter for screening for malignant neoplasm of colon (principal); D12.2 Benign neoplasm of ascending colon; D12.5 Benign neoplasm of sigmoid colon; K57.30 Diverticulosis of large intestine without perforation or abscess without bleeding; K64.8 Other hemorrhoids; N40.0 Benign prostatic hyperplasia without lower urinary tract symptoms; I10 Essential (primary) hypertension; E78.00 Pure hypercholesterolemia, unspecified; R73.01 Impaired fasting glucose; E66.9 Obesity, unspecified; Z68.34 Body mass index [BMI] 34.0-34.9, adult; Z98.890 Other specified postprocedural states; Z87.891 Personal history of nicotine dependence
CPT/HCPCS: 45385; 45381; 88305; J2250; J2704

== ENCOUNTER → 2023-11-02 06:51 | Outpatient (BNV) | payer OTHER, SELFPAY | PROVIDERS: PCP Internal Medicine; Visit Provider Internal Medicine Gastroenterology | DX: Z12.11 Encounter for screening for malignant neoplasm of colon (principal); K63.5 Polyp of colon; K57.90 Diverticulosis of intestine, part unspecified, without perforation or abscess without bleeding; K64.8 Other hemorrhoids | CPT/HCPCS: 45380; 45381; 45385 ==

== ENCOUNTER 2023-11-16 09:10 | Outpatient (AMB) | payer OTHER, SELFPAY ==
[2023-11-16 09:26] VITALS: BP 144/79; PULSE 73; BMI 34.9
--- NOTE | 2023-11-16 09:26 | MHC.OFFVIS ---
Vital Signs 11/16/23 09:26 Height 5 ft 10 in Weight 243 lb 6.245 oz BMI 34.9 BP 144/79 H Blood Pressure Location Rt brachial Position Sitting Pulse 73 Intake Visit Reasons: S/P [place]; Dr. Palafox Intake Note: Patient in office toda s/p colonosocpy with Dr. Gatica on 11/02/23. CC: Patient reports doing well and denies having any GI symptoms today. 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 Palafox: Details: Assessment & Plan (1) Pre-op examination: Code(s): Z01.818 - Encounter for other preprocedural examination Plan: This is his first colonoscopy. His stools are softer but not problems, he has a hx of GERD that has not been active recently and he is not on any medications. There are no prior problems with anesthesia or sedation. He denies any cardiac or respiratory problems. No ID problems. His sister had bone cancer and was of unknown origin, no other known cancers or polyps. Orders: Orders Colonoscopy - GI Use Only 05/22/23 Z01.818 - Encounter for other preprocedural examination Medications: New peg 3350-electrolytes 236-22.74-6.74 -5.86 gram (Golytely) until fecal effluent is clear; do not exceed a total volume of 2,000 mL 240 mL PO Q10M 4,000 mL 0RF 1 day Z12.11 - Encounter for screening for malignant neoplasm of colon bisacodyl (Dulcolax (bisacodyl)) 10 mg (2 x 5 mg) PO BEDTIME 4 tabs 0RF 2 days COLONOSCOPY 11/02/23 Findings: Terminal Ileum: Not evaluated Cecum: Normal Ascending Colon: A 10-12 mm sessile polyp in the proximal AC overlying a fold - removed with a hot snare Transverse Colon: Normal Descending Colon: Normal Sigmoid Colon: Two 2.5 cms sessile polyps at 20 to 25 cms - removed with a hot snare. Polypectomy sites were closed with 1 hemoclip at each site and marked by Tomasa ink. Two 10-15 mm sessile polyps at 20 to 25 cms - removed with a hot snare. Moderate diverticulosis Rectum: Normal Ano-rectum: Moderate internal hemorrhoids THE Impression and Post Procedure Diagnosis: Colonoscopy Findings: Two large and three medium sized polyps were removed Moderate diverticulosis seen in the sigmoid colon Moderate hemorrhoids on retroflexed exam. Plan: Pt has a FU appointment on 11/16/23 with Merline Carlisle NP. Repeat Colonoscopy in 1-2 years if polyps are adenomatous and 10 year if polyps are hyperplastic. (Needs addition of dulcolax for colon prep and an adult colonoscope for future colonoscopies) BIOPSY Received: 11/02/23 Diagnosis A. Colon, ascending, polyp: Tubular adenoma; negative for high-grade dysplasia and carcinoma. B. Colon, at 25 cm, polyps: Tubular adenomas (multiple pieces) with a focus of high-grade dysplasia (see comment), and hyperplastic polyps (multiple pieces). Comment: (B): There is no invasion identified and this adenoma lacks metastatic potential. The margin cannot be evaluated and endoscopic follow-up is warranted to ensure there is no residual lesion. TODAY'S VISIT He has a appt already for a repeat 04/28 for a repeat scope (news to me!) The procedure was well tolerated. The results were explained and the patient is agreeable to the follow-up interval as stated. The bowel pattern has returned to normal. Education was provided to tell any 1st degree relatives about their findings to be sure that they are screened by age 45. Educated that they will be put on a recall list when it is time for their repeat scope but should they move out of state or away from the hospital they will need to remember along with their primary to repeat the procedure in a timely fashion to avoid any adverse complications. ROV after above colonoscopy. PFSH Medical History GERD without esophagitis Obesity (BMI 30-39.9) BPH (benign prostatic hyperplasia) Dyslipidemia Impaired glucose tolerance Essential hypertension Surgical History H/O colonoscopy History of prostate surgery Family History Father Diabetes Hypertension Mother Hypertension Family/Other Asthma Social History Housing: House Alcohol intake: current Alcohol intake frequency: a few times a month Alcohol type: beer Patient Tobacco Use Status: Former Tobacco user Tobacco use type: Cigarette e-Cigarette/Vaping Use: Never Used Second Hand Smoke Exposure: No service: No Current occupational status: employed Current occupational exposures/hazards: No Cognitive needs: No Hearing needs: No Vision needs: No Review of Systems Const Denies fatigue, Denies fever(s), Denies night sweats, Denies poor appetite and Denies weight loss ENT Reports Normal hearing present, Denies dental pain, Denies dysphagia, Denies hearing loss, Denies mouth pain, Denies odynophagia, Denies throat swelling, Denies tongue swelling and Reports other (Dentition adequate) Card Reports no additional complaints Resp Reports no additional complaints GI Details: Denies abdominal pain, Denies melena, Denies bloating, Denies hematochezia, Denies constipation, Denies GI cramping, Denies dysphagia, Denies excessive flatus, Denies early satiety, Denies heartburn, Denies diarrhea, Denies nausea, Denies odynophagia, Denies vomiting and Denies hematemesis Skin/Breast Denies pruritus, Denies lesions, Denies rash and Denies jaundice Neuro Reports Normal hearing present and Denies Abnormal speech present Endo Denies fatigue Aller/Immun Denies throat swelling and Denies tongue swelling Physical Exam Vital Signs: Last Vital Signs Pulse 73 11/16/23 09:26 BP 144/79 H 11/16/23 09:26 BMI result Body Mass Index 34.9 Const General: cooperative, no acute distress, well developed and well groomed Nutritional Appearance: well nourished and obese Orientation/consciousness: oriented to person, oriented to place and oriented to time Limitations: No language barrier HEENT Head: Yes normocephalic and Yes atraumatic Eyes General: appearance normal, both eyes and all related structures Pupils: Equal, round and reactive pupils present Neck Neck: Yes normal visual inspection and Yes no lymphadenopathy Thyroid: Thyroid normal Resp Effort & Inspection: normal respiratory effort and able to speak in complete sentences Auscultation: clear to auscultation bilaterally Cardio Rate: regular rate Rhythm: regular rhythm Heart sounds: Normal, physiologic split S2 sound present Peripheral pulses: radial pulses present and posterior tibial pulses present GI Inspection: No distended, No Abdominal panniculus present and Yes obesity Palpation (GI): Soft to palpation, nontender, no guarding, not rigid and No hepatosplenomegaly present Percussion: Yes normal to percussion Auscultation: normal bowel sounds Rectal Exam - Male: Yes deferred Skin General skin exam: no rashes or lesions noted, turgor normal, skin not dry, no jaundice, No spider nevi and no striae Rashes: no rashes Nails: normal Neuro General: oriented to person, oriented to place and oriented to time Cranial nerves: Yes Equal, round and reactive pupils present and Yes Normal hearing present Speech: No Abnormal speech present Extrem General: Yes normal to inspection, No clubbing, No cyanosis and No edema Psych Appearance: grossly normal and well kempt Mental Status: mental status grossly normal Speech and movement: Normal speech and movement present Affect: normal affect Attitude: cooperative Thought process: Normal thought process present and not confabulating Thought content: Normal thought content present Insight: Fair insight present (Psych) Judgement: Fair judgement present (Psych) Assessment & Plan Assessment & Plan (1) Tubular adenoma of colon: Comment: 10/2023= large sessile polyps repeat 04/2024 Code(s): D12.6 - Benign neoplasm of colon, unspecified Category: Medical Plan He has a appt already for a repeat 04/28 for a repeat scope (news to me!) The procedure was well tolerated. The results were explained and the patient is agreeable to the follow-up interval as stated. The bowel pattern has returned to normal. Education was provided to tell any 1st degree relatives about their findings to be sure that they are screened by age 45. Educated that they will be put on a recall list when it is time for their repeat scope but should they move out of state or away from the hospital they will need to remember along with their primary to repeat the procedure in a timely fashion to avoid any adverse complications. ROV after above colonoscopy. Coding Level of Care Code Est Pt Level 3 (23831) Diagnoses Tubular adenoma of colon D12.6
== END 2023-11-16 10:29 | disposition home or self-care (01) ==
PROVIDERS: PCP Internal Medicine; Visit Provider Nurse Practitioner
DX: D12.6 Benign neoplasm of colon, unspecified (principal)
CPT/HCPCS: 99213

== ENCOUNTER → 2023-11-16 09:10 | Outpatient (BNVA) | payer OTHER, SELFPAY | PROVIDERS: PCP Internal Medicine; Visit Provider Nurse Practitioner ==

== ENCOUNTER 2024-02-18 12:08 | Outpatient (AMB) | payer OTHER, SELFPAY ==
[2024-02-18 12:31] VITALS: BP 132/76; PULSE 86; O2SAT 98; BMI 35.4
--- NOTE | 2024-02-18 12:31 | MHC.PC.OV ---
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 Required: No Allergies No Known Allergies Allergy (Verified 02/18/24 12:59) Medication List - Last Reconciled 02/18/24 by Jewel Ocampo MD amlodipine 5 mg PO DAILY 90 days aspirin (Adult Low Dose Aspirin) 81 mg PO DAILY hydralazine 50 mg PO BID 90 days ibuprofen 800 mg PO Q8H PRN 14 days losartan 100 mg PO DAILY tamsulosin 0.4 mg PO DAILY Tobacco use date assessed: 08/21/23 Dental Screening Dental Screen Date: 02/18/24 Did you have a dental visit in the last 12 months?: No Did you have a dental problem in the last 6 months where you did not have access to dental care?: No HPI Annual Exam HPI Details Patient comes in today for his annual physical examination States that he feels okay He denies any headaches or dizziness Denies any chest pains, no SOB No nausea/vomiting, no abdominal pain No change in bowel habits noted He denies any acute urinary symptoms He was not able to get his follow up labs done prior to his visit today - states that he will try to get these done ANNY He had his screening colonoscopy done with Dr. Gatica a few months ago on 11/02/2023 - (+) tubular adenoma, diverticulosis and hemorrhoids - was recommended to get repeat colonoscopy in a couple of years due to his tubular adenomas Patient adds that ENT supposedly advised him that he has a polyp as well in his left ear canal and they are currently trying him on some ear drops and may need to remove the polyp in his ear surgically if it persists but patient states that his ears currently feels okay with no acute issues [facility] Medical History GERD without esophagitis Obesity (BMI 30-39.9) BPH (benign prostatic hyperplasia) Dyslipidemia Impaired glucose tolerance Essential hypertension Surgical History H/O colonoscopy History of prostate surgery Family History Father Diabetes Hypertension Mother Hypertension Family/Other Asthma Social History Housing: House Alcohol intake: current Alcohol intake frequency: a few times a month Alcohol type: beer Patient Tobacco Use Status: Former Tobacco user Tobacco use type: Cigarette e-Cigarette/Vaping Use: Never Used Second Hand Smoke Exposure: No service: No Current occupational status: employed Current occupational exposures/hazards: No Cognitive needs: No Hearing needs: No Vision needs: No Questionnaire PHQ-9 Over the last 2 weeks, how often have you been bothered by any of the following problems? 1. Little interest or pleasure in doing things: not at all 2. Feeling down, depressed, or hopeless: not at all 3. Trouble falling or staying asleep, or sleeping too much: not at all 4. Feeling tired or having little energy: not at all 5. Poor appetite or overeating: not at all 6. Feeling bad about yourself - or that you are a failure or have let yourself or your family down: not at all 7. Trouble concentrating on things, such as reading the newspaper or watching television: not at all 8. Moving or speaking so slowly that other people could have noticed. Or the opposite - being so fidgety or restless that you have been moving around a lot more than usual: not at all 9. Thoughts that you would be better off or of hurting yourself in some way: not at all Total score: 0 Depression Screening Interpretation: Negative Depression Screening Done: Yes 09691 - PHQ-9 Billing: Yes Source: Developed by Drs. Robert Stephenson, Noelle Hirsch, Luan Collazo and colleagues, with an educational vanessa from [employer]. Thrive Questionnaire Date Thrive assessed: 02/18/24 I am a: Patient What is your living situation today?: I have a steady place to live Within the past 12 months, did the food you bought not last and you didn't have the money to get more?: Never true Within the past 12 months, did you worry whether your food would run out before you got money to buy more?: Never true Do you have trouble paying for medicines?: No Do you have trouble getting transportation to medical appointments?: No Do you have trouble paying your heating and electricity bill?: No Do you have trouble taking care of your child, family member or friend?: No Do you have trouble with day-to-day activities such as bathing, preparing meals, shopping, managing finances, etc.?: No Are you currently unemployed and looking for a job?: No Are you interested in more education?: No Please select the resources that you would like help with: None Currently or been in a relationship where the following occur: No concerns reported THRIVE Score: 0 AUDIT C Alcohol Use Questionnaire (AUDIT-C) 1. How often do you have a drink containing alcohol?: 2-4 times a month 2. How many drinks containing alcohol do you have on a typical day when you are drinking?: 1 or 2 3. How often do you have six or more drinks on one occasion?: Never Total Score: 2 Score Reviewed/Action Taken: Yes ARLEEN-7 AMB Questionnaire ARLEEN-7 Date ARLEEN - 7 assessed: 02/18/24 Feeling nervous, anxious, or on edge: 0 = Not at all Not being able to stop or control worryin = Not at all Worrying too much about different things: 0 = Not at all Trouble relaxin = Not at all Being so restless that it is hard to sit still: 0 = Not at all Becoming easily annoyed or irritable: 0 = Not at all Feeling afraid as if something awful might happen: 0 = Not at all Total ARLEEN-7 score (0-4 normal; 5-9 mild; 10-14 moderate; 15-21 severe): 0 Source: Developed by Drs. Robert Stephenson, Noelle Hirsch, Luan Collazo and colleagues, with an educational vanessa from [employer]. Review of Systems Const Denies chills, Denies fatigue, Denies fever(s), Denies headache(s), Denies malaise and Denies weakness Eyes Denies blurry vision, Denies change in vision, Denies irritation and Denies itchy eyes ENT Denies dysphagia, Denies dizziness, Denies otalgia, Denies headache(s), Denies nasal congestion, Denies neck pain, Denies odynophagia and Denies sore throat Card Denies chest pain, Denies rapid heart rate, Denies irregular heart rhythm, Denies palpitations and Denies dyspnea Resp Denies chest congestion, Denies cough, Denies dyspnea and Denies wheezing GI Denies abdominal pain, Denies bloating, Denies constipation, Denies dysphagia, Denies heartburn, Denies diarrhea, Denies nausea, Denies odynophagia and Denies vomiting Denies hematuria, Denies difficulty urinating, Denies dysuria, Denies urinary frequency and Denies urinary urgency Musc Denies back pain, Denies arthralgias, Denies joint swelling, Denies muscle weakness and Denies neck pain Skin/Breast Denies change in pigmentation, Denies lesions, Denies rash and Denies unusual bruising Neuro Denies dizziness, Denies headache(s), Denies paresthesias and Denies weakness Endo Denies fatigue and Denies palpitations Aller/Immun Denies itchy eyes and Denies wheezing Physical exam (Primary Care) Vital Signs: Last Vital Signs Pulse 86 02/18/24 12:31 BP 132/76 02/18/24 12:31 Pulse Ox 98 02/18/24 12:31 Oxygen Delivery Method Room Air 02/18/24 12:31 BMI result Body Mass Index 35.4 Tobacco/Smoking Status: Tobacco use Status Tobacco use date assessed 08/21/23 02/18/24 12:32 Patient Tobacco Use Status Former Tobacco user 02/18/24 12:32 Tobacco use type Cigarette 02/18/24 12:32 e-Cigarette/Vaping Use Never Used 02/18/24 12:32 PHQ-9: PHQ-9 Score PHQ-9: Total score 0 02/18/24 12:38 Depression Screening Interpretation: Negative Thrive Assessment: Date of Thrive Assessment Date Thrive assessed 08/21/23 02/18/24 12:32 Currently or been in a relationship where the following occur: No concerns reported Const General: no acute distress, alert and awake Orientation/consciousness: patient oriented x3 HENMT Head: Yes normocephalic and Yes atraumatic Ears: external ears normal, TM's normal bilaterally and EAC's normal General nose exam: No nasal discharge present Face and sinus: Yes normal facial exam and Yes sinuses nontender Teeth and gingiva: dentition normal Throat: Yes posterior oropharynx normal and Yes tonsils normal (no TP congestion) Eyes Eyelids: Yes eyelids normal Conjunctivae: conjunctivae normal Pupils: Equal, round and reactive pupils present EOM: EOMs intact bilaterally Neck Neck: Yes no lymphadenopathy and Yes supple Thyroid: Thyroid normal Resp Auscultation: clear to auscultation bilaterally, no rales and no wheezes Cardio Rate: regular rate Rhythm: regular rhythm Heart sounds: no murmurs GI Palpation (GI): Soft to palpation, nontender and No hepatosplenomegaly present Auscultation: normal bowel sounds General: Yes no CVA tenderness Back/Spine/Pelvis Back: no CVA tenderness Thoracic/Lumbar Spine: thoracic and lumbar spine normal to inspection Skin Lesions: no lesions Rashes: no rashes Neuro General: patient oriented x3, moves all extremities, no focal motor deficits and CN's II-XI intact bilaterally Cranial nerves: Yes Equal, round and reactive pupils present Cognition (Neuro): normal cognition Gait exam (Neuro): Normal gait present Extrem General: Yes no clubbing, cyanosis or edema Assessment and Plan Assessment & Plan (1) Annual physical exam: Code(s): Z00.00 - Encounter for general adult medical examination without abnormal findings Plan: Have advised patient to go and get his (previously ordered) labs done ANNY He just had his screening colonoscopy done back in October 2023 - (+) tubular adenomas, diverticulosis and hemorrhoids He has been advised to get repeat colonoscopy in a couple of years (2025) due to his tubular adenomas (2) Essential hypertension: Code(s): I10 - Essential (primary) hypertension Plan: Reinforced low sodium diet - goal is systolic BP of 120 mm or less Continue Losartan 100 mg QD, Amlodipine 5 mg QD and Hydralazine 50 mg BID Patient is reminded to continue monitoring his blood pressure regularly (3) Dyslipidemia: Code(s): E78.5 - Hyperlipidemia, unspecified Plan: Reinforced low cholesterol diet Will recheck his fasting lipids for follow up (4) Impaired glucose tolerance: Code(s): R73.02 - Impaired glucose tolerance (oral) Plan: Reinforced low calorie diet/exercise as tolerated FBS was elevated at 113 mg/dL when previously checked last year but his HgbA1c was normal at 5.3% back then (5) GERD without esophagitis: Code(s): K21.9 - Gastro-esophageal reflux disease without esophagitis Plan: Dietary restrictions reinforced Continue Omeprazole 20 mg QD (6) BPH (benign prostatic hyperplasia): Code(s): N40.0 - Benign prostatic hyperplasia without lower urinary tract symptoms Qualifiers: Lower urinary tract symptom presence: unspecified whether lower urinary tract symptoms present Qualified Code(s): N40.0 - Benign prostatic hyperplasia without lower urinary tract symptoms Plan: S/P prostate surgery in 08/2016 Continue Tamsulosin 0.4 mg Q HS Follow up with urology as scheduled (7) Obesity (BMI 30-39.9): Code(s): E66.9 - Obesity, unspecified Plan: Reinforced diet/exercise as tolerated/lose weight Plan Follow up in 6 months Coding Level of Care Code Est Pt Prev Care 40-64y(74112) Diagnoses Annual physical exam Z00.00 Essential hypertension I10 Dyslipidemia E78.5 Impaired glucose tolerance R73.02 GERD without esophagitis K21.9 Benign prostatic hyperplasia, unspecified whether lower urinary tract symptoms present N40.0 Lower urinary tract symptom presence: unspecified whether lower urinary tract symptoms present Obesity (BMI 30-39.9) E66.9
== END 2024-02-18 13:00 | disposition home or self-care (01) ==
PROVIDERS: PCP Internal Medicine; Visit Provider Internal Medicine
DX: Z00.00 Encounter for general adult medical examination without abnormal findings (principal); I10 Essential (primary) hypertension; E78.5 Hyperlipidemia, unspecified; R73.02 Impaired glucose tolerance (oral); K21.9 Gastro-esophageal reflux disease without esophagitis; N40.0 Benign prostatic hyperplasia without lower urinary tract symptoms
CPT/HCPCS: 99396

== ENCOUNTER 2024-06-18 09:19 | Outpatient (REF) | payer OTHER, SELFPAY ==
[2024-06-18 09:56] LABS: MANUAL DIFF FLAG NO
[2024-06-18 10:59] LABS: Basophils Absolute Auto 0.1 X10*3/uL (0.0-0.2); Basophils Percent Auto 1.2 % (0-2); Eosinophils Absolute Auto 0.3 X10*3/uL (0.0-0.4); Eosinophils Percent Auto 4.3 % (0-4); Hematocrit 44.6 % (42.0-52.0); Hemoglobin 15.1 g/dl (14.0-18.0); Imm Gran Abs Auto 0.02 X10*3/uL (0.00-0.03); Imm Gran Pct Auto 0.3 % (0.0-0.4); Lymphocytes Absolute Auto 1.9 X10*3/uL (1.2-4.9); Lymphocytes Percent Auto 32.1 % (20-40); Mean Corpuscular HGB Conc 33.9 g/dl (31.0-36.0); Mean Corpuscular Hemoglobin 29.5 pg (27.0-33.0); Mean Corpuscular Volume 87.3 fL (80.0-98.0); Mean Platelet Volume 9.6 fL (9.4-12.4); Monocytes Absolute Auto 0.6 X10*3/uL (0.1-1.2); Monocytes Percent Auto 10.3 % (2-11); Neutrophils Percent Auto 51.8 % (45-73); Platelet Count 244 X10*3/uL (160-400); Red Blood Count 5.11 X10*6/uL (4.60-5.80); Red Cell Distribution Width 11.9 % (11.0-16.0); White Blood Count 5.9 X10*3/uL (4.8-10.8)
[2024-06-18 11:23] LABS: Appearance Urine Clear; Color Urine Yellow; Glucose Urine UA Negative (Negative); Leukocyte Esterase Urine Negative (Negative); Nitrite Urine Negative (Negative); Specific Gravity - Urine 1.015 (1.005-1.025); Urine Blood Negative (Negative); Urine Ketones Negative (Negative); Urine Protein Negative (Neg-Trace)
[2024-06-18 11:46] LABS: Prostate Specific Antigen Scr 1.04 ng/mL (<0.05-4.0)
[2024-06-18 11:49] LABS: Alanine Aminotransferase 45 U/L (0-40); Albumin Level 4.3 g/dL (3.5-5.0); Alkaline Phosphatase 78 U/L (39-117); Anion Gap 12 (12-20); Aspartate Amino Transferase 26 U/L (5-37); Bilirubin Total 0.5 mg/dL (0.0-1.0); Blood Urea Nitrogen 12 mg/dL (9-16); Calcium 9.1 mg/dL (8.4-10.2); Carbon Dioxide 28 mmol/L (22-29); Chloride 104 mmol/L (96-108); Cholesterol 175 mg/dL (<200); Estimated Glomerular Filt Rate > 60; Glucose Fasting 85 mg/dL (60-99); HDL Cholesterol 37 mg/dL (>40); LDL Cholesterol Calculated 100 mg/dL (<100); Potassium 3.7 mmol/L (3.3-5.1); Sodium 140 mmol/L (135-145); Total Protein 6.8 g/dL (6.5-8.0); Triglycerides 193 mg/dL (<150)
[2024-06-18 11:54] LABS: TSH reflex Free T4 1.34 uIU/mL (0.32-4.0); Vitamin D 25-OH Total 36.6 ng/mL (>30)
== END 2024-06-18 09:20 | disposition home or self-care (01) ==
LOC: HO.LAB 09:19
PROVIDERS: PCP Internal Medicine; Visit Provider Internal Medicine
DX: Z00.00 Encounter for general adult medical examination without abnormal findings (principal); E78.00 Pure hypercholesterolemia, unspecified; E55.9 Vitamin D deficiency, unspecified; D64.9 Anemia, unspecified; R30.0 Dysuria; Z12.5 Encounter for screening for malignant neoplasm of prostate
CPT/HCPCS: 36415; 80053; 80061; 81003; 82306; 84153; 84443; 85025

== ENCOUNTER 2024-07-28 08:26 | Day surgery (SDC) | payer OTHER, SELFPAY ==
--- NOTE | 2024-07-25 10:27 | P.CONAN_ITS ---
Documented by User: Gloria Munoz NP 07/25/24 10:28 HPI - Anesthesia Eval Consult details Narrative: 49yo M for Colonoscopy s/p same 10/2023 with MAC [facility] Active Problems Active Problems: All Active Problems Tubular adenoma of colon (Acute) Pre-op examination (Acute) Acute memory impairment (Acute) Impacted cerumen of both ears (Acute) Tinnitus of both ears (Acute) Hearing impairment (Acute) False positive test for syphilis (Acute) GERD without esophagitis (Acute) Colon cancer screening (Acute) Obesity (BMI 30-39.9) (Acute) Annual physical exam (Acute) Varicose veins of right lower extremity with inflammation (Acute) Recurrent cough (Acute) Peripheral vascular disease of lower extremity (Acute) Bronchitis (Acute) Cough (Acute) Runny nose (Acute) Abdominal pain (Acute) BPH (benign prostatic hyperplasia) (Acute) Dyslipidemia (Acute) Impaired glucose tolerance (Acute) Essential hypertension (Acute) Past Medical History Medical History GERD without esophagitis Obesity (BMI 30-39.9) BPH (benign prostatic hyperplasia) Dyslipidemia Impaired glucose tolerance Essential hypertension Family History Family History Father Diabetes Hypertension Mother Hypertension Family/Other Asthma Family history of problems with anesthesia: No Surgical History Surgical History H/O colonoscopy History of prostate surgery History of Problems with Anesthesia: No Social History Social History Housing: House Alcohol intake: current Alcohol intake frequency: a few times a month Alcohol type: beer Patient Tobacco Use Status: Former Tobacco user Tobacco use type: Cigarette e-Cigarette/Vaping Use: Never Used Second Hand Smoke Exposure: No Use of substances other than those prescribed or required for medical reasons: No Are you DNR?: No Advance Directives: No Advance Directives Information Provided: Yes service: No Current occupational status: employed Current occupational exposures/hazards: No Cognitive needs: No Hearing needs: No Vision needs: No Meds Allergies Allergy/AdvReac Type Severity Reaction Status Date / Time No Known Allergies Allergy Verified 07/28/24 09:13 Home Medications ?Medication ?Instructions ?Recorded ?Confirmed ?Last Taken ?Type aspirin 81 mg tablet,delayed 81 mg PO DAILY 05/24/21 07/28/24 Unknown History release (Adult Low Dose Aspirin) Assessment and Plan Assessment Anesthesia Assessment: Chart Reviewed Final Anesthetic Review Family History of Problems with Anesthesia: No History of Problems with Anesthesia: No Documented by User: Antoinette Rubalcava MD 07/28/24 09:27 [facility] Past Medical History Medical History GERD without esophagitis Obesity (BMI 30-39.9) BPH (benign prostatic hyperplasia) Dyslipidemia Impaired glucose tolerance Essential hypertension Family History Family History Father Diabetes Hypertension Mother Hypertension Family/Other Asthma Surgical History Surgical History H/O colonoscopy History of prostate surgery Social History Social History Housing: House Alcohol intake: current Alcohol intake frequency: a few times a month Alcohol type: beer Patient Tobacco Use Status: Former Tobacco user Tobacco use type: Cigarette e-Cigarette/Vaping Use: Never Used Second Hand Smoke Exposure: No Use of substances other than those prescribed or required for medical reasons: No Are you DNR?: No Advance Directives: No Advance Directives Information Provided: Yes service: No Current occupational status: employed Current occupational exposures/hazards: No Cognitive needs: No Hearing needs: No Vision needs: No Meds Allergies Allergy/AdvReac Type Severity Reaction Status Date / Time No Known Allergies Allergy Verified 07/28/24 09:13 Home Medications ?Medication ?Instructions ?Recorded ?Confirmed ?Last Taken ?Type aspirin 81 mg tablet,delayed 81 mg PO DAILY 05/24/21 07/28/24 Unknown History release (Adult Low Dose Aspirin) Exam Airway Mallampati Class: II TM Dist: >3cm Neck ROM: Full Heart: rrr Lungs: cta Assessment and Plan Assessment Anesthesia Assessment: Anesthesia Plan Discussed Final Anesthetic Review NPO: Yes ASA Class: II Final Preanesthetic Review: No Changes in Pt Med Stat, Meds/Allgs Chart Reviewed and Consent Obtained/Reviewed Patient Risk: Low Procedure Risk: Low Anesthetic Plan Anesthetic Plan: MAC: Disposition: Standard PACU
--- OUTSIDE RECORDS SUMMARY | 2024-07-28 08:45 | XMS_ITS | Data Portability ---
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 On exam, there is a nonobstructing small granulation polyp of the left medial canal. There is a significant cerumen and squamous debris plug that was partially debrided today. Purulence was cleared from the canal. Tympanic membrane is not visible. Canal cholesteatoma cannot be ruled out at this time. Recommended to continue with TobraDex twice daily into the left ear and to continue with dry ear precautions. He will follow-up in 2-3 weeks for reevaluation on a day that Dr. William is in the office. [email or web address] Not available 12/21/2023 10:29:16 02/08/2024 02/08/2024 Canal polyp resolved. Asymmetric hearing loss. Differential reviewed with patient to include asymmetric noise exposure versus retrocochlear pathology to include acoustic neuroma versus others. Reviewed utility of and rationale for MRI of IACs. 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 Recommend hearing protection. For the tinnitus unfortunately no cure. Recommend masking. Reviewed indications to call the office sooner. Otherwise recommend 6 month recheck under binocular microscope by Dr. William with updated audiometric testing same day. Patient agreeable. [email or web address] Not available 02/08/2024 13:09:36 Plan of Treatment Reminders Order Date Submit Date Provider Last Modified By Organization Details Last Modified Time Details Appointments Hearing Test 2024 11:00A M Hearing Test Not available Not available Not available Establish ed 15 2024 11:30A M CHADWICK VARGAS PA-C Not available Not available Not available Lab None recorded. Referral None recorded. Procedures None recorded. Surgeries None recorded. Imaging None recorded. Medication Orders TobraDex 0.3 %-0.1 % eye drops,echo pension [address] [facility]/Pharmacy #[id number], [address] [place], [address], 12/07/2023 11:05:13 TobraDex 0.3 %-0.1 % eye drops,echo pension [address] [facility]/Pharmacy #[id number], [address] [place], [address], 12/21/2023 10:29:42 ciproflox acin 0.3 %-dexamet hasone 0.1 % ear drops,echo pension 2023 024 [email or web address] [facility]/Pharmacy #[id number], [address] [place], [address], 02/08/2024 11:45:24 Patient TargetsNo targets recorded. Patient InstructionsNo instructions recorded. Reason for Referral None Reported. Results Created Date Observation Date Name Description Value Unit Range Abnormal Flag Note LastModifiedBy Organization Detail LastModifiedTime 02/11/20 24 audio gram No observ ation record ed. [email or web address] Not Available 01/21 16:17:16 Result Notes None recorded. Problems Name Problem SNOMED Code Status Onset Date Resolution Date Notes Provider Name and Address Organization Details Recorded Time Hypertensi ve disorder 42681050 Active 2023 Jammie barlow [place] - [facility] 4 10:56:52 Otorrhea of left ear 0698969450010 108 Active 2023 OSCAR CARR MD [address] [place] [address], [facility] [place], [address] , [place] - [facility] 4 11:01:34 Polyp of left external ear canal 6185493791421 100 Active 2023 OSCAR CARR MD 100 [facility],[place] [address], [facility] [place] [place], [address] , [facility] - [facility] 4 11:01:46 Cholesteat kandace of external ear 83302719 Active 2023 ED WILLIAM MD [address] [facility],[place] [address], [facility] [place] [place], [address] , [facility] - [facility] 4 10:54:03 Bilateral tinnitus 7982139599365 Active 2023 THO BUSBY [address] [facility],[place] [address], [place], [address] , [facility] - [facility] 4 12:27:34 Sensorineu ral hearing loss in left ear 1366073622014 9 Active 2023 THO BUSBY [address] [facility],[place] [address], [place], [address] , [facility] - [facility] 4 12:27:52 Problem Notes None recorded. Procedures Surgical History Date Name Laterality Status Provider Name and Address Organization Details Recorded Time 4 Comp Audio with Tymps (09162 & 24808) completed THO BUSBY [address] [facility],[place] [address], [place], [address], [facility] - [facility] 02/08/2024 12:27:18 4 Debridement of Ear canal left completed ED WILLIAM MD [address] [facility] [address], [place], [address], [facility] - [facility] 01/08/2024 10:56:54 Imaging Results Imaging Date Name Status LastModified by [facility] Details LastModified Time 02/11/2024 audiogram completed [email or web address] Information n ot available 02/11/2024 16:17:16 Procedure Notes None recorded. Medical Equipment None Reported. Allergies No known drug allergies Medications Name Sig Start Date Stop Date Status Note LastModified by Organization Details LastModified Time doxycycline hyclate 100 mg capsule TAKE 1 CAPSULE TWICE A DAY BY ORAL ROUTE DIRECTED FOR 10 DAYS, FOR LEFT EAR INFECTION . 12/06 completed Not Available Not Available Not Available hydralazine 25 mg tablet TAKE 1 TABLET ORALLY 2 TIMES A DAY FOR 90 DAYS 02/07 completed Not Available Not Available Not Available amlodipine 5 mg tablet TAKE 1 TABLET BY MOUTH EVERY DAY active Not Available Not Available No t Available ciprofloxac in 500 mg tablet TAKE 1 TABLET TWICE A DAY FOR 10 DAYS 12/06 completed Not Available Not Available Not Available tamsulosin 0.4 mg capsule TAKE 1 CAPSULE BY MOUTH EVERY DAY active Not Available Not Available No t Available omeprazole 20 mg capsule,del ayed release 20 MG ORALLY DAILY 12/06 completed Not Available Not Available Not Available codeine 10 mg-guaifene sin 100 mg/5 mL oral liquid TAKE 5 ML BY MOUTH EVERY 6 HOURS NEEDED FOR PERSISTEN T COUGH FOR 7 DAYS 12/06 completed Not Available Not Available Not Available bisacodyl 5 mg tablet,letty yed release 12/06 completed Not Available Not Available Not Available hydralazine 50 mg tablet TAKE 1 TABLET BY MOUTH 2 TIMES A DAY FOR 90 DAYS active Not Available Not Available No t Available cefuroxime axetil 500 mg tablet TAKE 1 TABLET BY MOUTH 2 TIMES A DAY FOR 10 DAYS 12/06 completed Not Available Not Available Not Available losartan 100 mg tablet TAKE 1 TABLET BY MOUTH EVERY DAY active Not Available Not Available No t Available tobramycin 0.3 %-dexametha sone 0.1 % eye drops,suspe nsion apply 5 drops to affected ear BID x 14 days active Not Available Not Available No t Available ciprofloxac in 0.3 %-dexametha sone 0.1 % ear drops,suspe nsion INSTILL 4 DROPS TWICE A DAY BY OTIC ROUTE FOR 10 DAYS. 02/07 completed Not Available Not Available Not Available GaviLyte-G 236 gram-22.74 gram-6.74 gram-5.86 gram oral solution 12/06 completed Not Available Not Available Not Available Vitals Date Recorded Body height Body mass index (BMI) Body weight Provider Name and Address Organization Details Last Updated DateTime 01/08/2024 177.8 cm 33 kg/m2 179347.25 g Lavelle Campa [place] - [facility] 01/08/2024 10:05:44 Date Recorded Body height Body mass index (BMI) Body weight Provider Name and Address Organization Details Last Updated DateTime 12/07/2023 177.8 cm 33 kg/m2 483229.25 g Jammie Prasad [place] - [facility] 12/07/2023 10:49:45 Date Recorded Body height Body mass index (BMI) Body weight Provider Name and Address Organization Details Last Updated DateTime 12/21/2023 177.8 cm 33 kg/m2 927859.25 g Emmie Alvarez [place] - [facility] 12/21/2023 09:48:45 Social History Question Answer Notes LastModified by Organizat ion Details LastModified Time Tobacco Smoking Status Never Smoker Jammie barlow [place] - [facility] 12/07/2023 10:55:58 What Is Your Level Of Alcohol Consumption? Occasional [email or web address] Information not available 12/07/2023 Do You Or Have You Ever Used Any Other Forms Of Tobacco Or Nicotine? No [email or web address] Information not available 12/07/2023 Sex: Unknown Functional Status None recorded. Mental Status None recorded. Family History Nothing Reported. Medical History Condition Response Hypertension Y Immunizations Vaccine Type Date Status Note Provider Nam e and Address Organization Details Recorded Time influenza nasal, unspecified formulation 3 completed Jammie barlow [place] - [facility] 12/07/2023 10:55:15 Past Encounters Encounter ID Performer Location Encounter Start Date Encounter Closed Date Diagnosis/Indication Diagnosis SNOMED-CT Code Diagnosis ICD10 Code Diagnosis Note [id number] OSCAR CARR MD [facility] [address] [address] 12/07/2023 10:15:49 12/07/2023 11:07:26 Otorrhea of left ear [id number] 351839 H92.12 Left-sided otorrhea has been present for approximat yehuda 1 month. Associated otalgia has improved with oral antibiotic s from urgent care. On my examinatio n today he has left-sided purulence with a polyp on the anterior surface of the external auditory canal. Purulence was removed with suction. Recommend a 2-week course of TobraDex as well as dry ear precaution s. [facility] physician assistant shift [facility] At that time considerat ion could be given to adjustment of medication s, further debridemen t, removal of polyp. Eventually when the infection is under control investigat ion of hearing testing will be helpful Polyp of l eft external ear canal 1652945712 760281 H61.892 [id number] OSCAR CARR MD [facility] 100 [place] [address] 12/21/2023 09:35:38 12/21/2023 10:20:20 Otorrhea of left ear 0769161194 394843 H92.12 Polyp of l eft external ear canal 6967228970 572664 H61.892 [id number] ED WILLIAM MD [facility] [address] [place] [address] 01/08/2024 09:52:47 01/08/2024 10:56:20 Cholesteatoma of external ear 88814667 H60.42 Patient had a large deeply impacted plug of squamous epithelial debris in the left medial canal and surface of the tympanic membrane consistent with canal cholesteat kandace. This was carefully debrided today under the binocular microscope and removed. The tympanic membrane appears to be intact and there does not appear to be any sign of underlying tympanic membrane retraction or specific nidus for this debris collection . Recommend 10 days of topical Ciprodex drops and follow-up with me in a month for reevaluati on once the ear has had a chance to settle down. Polyp of l eft external ear canal 4121322082 409240 H61.892 The inflammato ry polyp appears smaller than previous descriptio ns, hopefully this will resolve with treatment with the above-ment ioned regimen. [id number] XOCHITL NORTON MD [facility] 100 [place] [address] 02/08/2024 11:32:35 02/08/2024 12:39:17 Bilateral tinnitus 3117291749 102 H93.13 Sensorineu ral hearing loss in left ear 3152416572 9109 H90.42 Audiologic al evaluation results: Right ear: {{Normal* Mild Moder ate Modera tely-sever e Severe P rofound}} {{hearing* sloping to a mild slopi ng to a moderate s loping to moderately severe slo ping to severe slo ping to profound f lat high frequency low frequency mid frequency cookie bite shin curve}} {{with* se nsorineura l hearing loss with condu ctive hearing loss with mixed hearing loss with}} {{excellen t* good fa ir poor no measurable }} word recognitio n. Left ear: {{Normal* Mild Moder ate Modera tely-sever e Severe P rofound}} {{hearing sloping to a mild* slop ing to a moderate s loping to moderately severe slo ping to severe slo ping to profound f lat high frequency low frequency mid frequency cookie bite shin curve}} {{with sen sorineural hearing loss with* cond uctive hearing loss with mixed hearing loss with}} {{excellen t* good fa ir poor no measurable }} word recognitio n. Tympanomet ry: Right Ear:{{Type A* Type As Type Ad Type C Type C, shallow & rounded Ty pe B Type B with large volume Cou ld not maintain a hermetic seal}} Left Ear:{{Type A* Type As Type Ad Type C Type C, shallow & rounded Ty pe B Type B with large volume Cou ld not maintain a hermetic seal}} Health Concerns Section Related Observation LastModified by Organization Detai ls LastModified Time None Recorded Concern Status LastModified by Organization Details LastModified Time None Recorded Advance Directives Directive None Recorded Payers Encounter Date Sequence Insurance Name Policy Number Policy Khan Covered Member ID Khan Member ID Guarantor Name 12/07/2023 2 [email or web address] [id number] Oliverio Elliot [id number] Oliverio Elliot 12/21/2023 2 [email or web address] [id number] Oliverio Elliot [id number] Oliverio Elliot 01/08/2024 1 [email or web address] - [facility] PPO (PPO) [id number] Oliverio W Elliot [id number] Oliverio Elliot 02/08/2024 1 [employer] - [facility] PPO (PPO) [id number] Oliverio Zarate [id number] Oliverio Zarate Notes Date Note Type Note Provider Name and Address Organization Details Recorded Time 12/07/2023 text/html hearing loss, [place] - progressive loss despite hearing protectionchronic for a long timeuses ear plugs, recently developed otorrhea. seen at urgent care with rx PO abx with improved pain but continued otorrhea. urgent care noted a TM perforationmno prior ear surgery OSCAR CARR MD 100 [facility],[place] [address], [place], [address], [facility] - [facility] 12/07/2023 11:08:35 12/21/2023 text/html 48-year-old male presents for follow-up of left sided otorrhea and ear canal polyp. He has been using TobraDex. No further otorrhea. Denies otalgia. Hearing continues to feel decreased on the left. Denies prior otologic surgeries or history of chronic ear infections. OSCAR CARR MD 100 [facility],[address], [address], [facility] - [facility] 12/21/2023 18:05:17 01/08/2024 text/html 48-year-old male presents for follow-up of left sided otorrhea and ear canal polyp. Reports he has been taking the Tobradex BID since last evaluated 12/20. Not abiding by dry ear precautions but is avoiding Q-tips. Reports the hearing still seems muffled, like water in it. There is no ronny otorrhea at the moment. He reports this has been going on for 4-6 months. Very painful, intermittently producing pus. New onset tinnitus ED WILLIAM MD 100 [facility], [place], [address], [facility] - [facility] 01/08/2024 11:00:04 02/08/2024 text/html 49 year old male presents for follow up on left ear. Reports he has been using the drops as prescribed and is not having otalgia nor otorrhea. He feels that his hearing is back to baseline. He endorses constant tinnitus, all sorts of noises that seem to be in both ears. Denies vertigo. Reports a long history of occupational noise exposure in the left greater than right ear. 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 XOCHITL NORTON MD [address] [place] [address], [place], [address], [place] - [facility] 02/09/2024 05:12:33
[2024-07-28 09:15] VITALS: BMI 33.5
[2024-07-28 09:17] VITALS: BP 155/87; PULSE 80; RESP 15; TEMP 36.5; O2SAT 97
[2024-07-28] MEDS: Lactated Ringers 1,000 ML 100 ML IVCONT (09:27)
--- NOTE | 2024-07-28 09:58 | P.HPSUR_ITS ---
Pre-Procedural Eval Section A - 24 Hr Update-Section A only Date of Service: 07/28/24 The patient is an INPATIENT: No The patient has been examined within 24 hours of the surgical procedure. The History & Physical has been completed within 30 days and I have reviewed it.: No Section B - Complete if H&P > 30 days Chief Complaint: Surveillance for colon polyps Relevant Family History (Specify if Yes): No Relevant Social History: Tobacco Use (Former smoker) Present Medications: see Short Stay Collaborative assessment Medical History: Significant History (GERD without esophagitis Obesity (BMI 30- 39.9) BPH (benign prostatic hyperplasia) Dyslipidemia Impaired glucose tolerance Essential hypertension) History of Previous Operations: Relevant previous surgery/procedure and date(s) (H/O colonoscopy History of prostate surgery) Allergies: Allergies Allergy/AdvReac Type Severity Reaction Status Date / Time No Known Allergies Allergy Verified 07/28/24 09:13 Review of Systems Sugical H&P ROS: Negative: Constitution, Cardiovascular, Respiratory and Gastrointestinal Exam Surgical H&P Exam: Normal: Heart, Normal: Lungs, Normal: Extremities and Normal: Abdomen Plan Diagnosis/Plan: Unchanged I have reviewed the history and physical and performed a pertinent physical examination on my patient. No changes have occurred unless specified. Time Spent With Patient Time: Total time managing care of this patient today ____ minutes.
--- NOTE | 2024-07-28 10:41 | HO.OPN-COLON ---
Colonoscopy Operative Note Operative Note Date of Service: 07/28/24 Narrative: COLONOSCOPY TILL CECUM WITH BIOPSIES AND SNARE POLYPECTOMY Pre-op diagnosis: Surveillance for colon polyps. Post-op diagnosis:? Colon polyps, Diverticulosis, hemorrhoids Endoscopist:? Ning Gatica MD Anesthesia:?MAC Consent: Indications for the procedure and potential complications of bleeding, perforation, reaction to medications and missed diagnosis were discussed with the patient and informed consent was obtained. Instrument: Olympus CF H 190 L variable stiffness adult colonoscope Monitoring: Vital signs and clinical assessment, intermittent blood pressure monitoring, continuous EKG monitoring, Pulse oximetry and Carbon Dioxide monitoring were done throughout the procedure. Please see anesthesia flowsheet. Colon withdrawl time was 25 minutes. Procedure: The patient was placed in the left lateral decubitis position and pre-procedure medications were administered. After a digital rectal examination of the ano-rectum, the video colonoscope was inserted into the rectum and advanced through the colon to the cecum. The colonoscope was slowly withdrawn in a retrograde panoramic fashion and the colon mucosa was carefully examined including a retroflexed view of the rectum. Findings and interventions are described below. Procedure Difficulty: without difficulty Findings: Terminal Ileum: Not evaluated Cecum: Normal Ascending Colon: A 4-5 mm sessile polyp in the mid ascending colon - removed with a cold snare Transverse Colon: A 7-8 mm sessile polyp - removed with a cold snare Descending Colon: Normal Sigmoid Colon: A 10 -12 mm sessile polyp - removed with a hot snare. Polypectomy site visualized at 25 cms without recurrent/residual polyp - biopsies were obtained. Moderate diverticulosis Rectum: Normal Ano-rectum: Moderate internal hemorrhoids Colon preparation: Good after copious irrigation. [place] Bowel Preparation Scale Right colon; 2 Transverse colon: 2 Left colon; 2 (0 = Unprepared colon segment with mucosa not seen due to solid stool that cannot be cleared. 1 = Portion of mucosa of the colon segment seen, but other areas of the colon segment not well seen due to staining, residual stool and/or opaque liquid. 2 = Minor amount of residual staining, small fragments of stool and/or opaque liquid, but mucosa of colon segment seen well. 3 = Entire mucosa of colon segment seen well with no residual staining, small fragments of stool or opaque liquid) Impression and Post Procedure Diagnosis: Colonoscopy Findings: Three small to medium sized polyps were removed Moderate diverticulosis seen in the sigmoid colon Moderate hemorrhoids on retroflexed exam. Plan: I will send a letter with biopsy results. Pt has a FU appointment on 08/07/24 with Merline Carlisle NP. Repeat Colonoscopy in 2-3 years if polyps are adenomatous and due to history of multiple adenomatous colon polyps Above findings were reviewed with the patient and relevant handouts were given and the discharge area.
[2024-07-28 10:43] VITALS: BP 122/55; PULSE 88; RESP 16; TEMP 36.1; O2SAT 97
[2024-07-28 10:50] VITALS: BP 119/60; PULSE 72; RESP 16; TEMP 36.2; O2SAT 97
== END 2024-07-28 11:40 | disposition home or self-care (01) ==
PROVIDERS: PCP Internal Medicine; Visit Provider Internal Medicine Gastroenterology
PROC: 0DJD8ZZ Inspection of Lower Intestinal Tract, Via Natural or Artificial Opening Endoscopic (ICD-10-PCS; CPT 45378; principal; 2024-07-28 10:20)
DX: Z12.11 Encounter for screening for malignant neoplasm of colon (principal); D12.2 Benign neoplasm of ascending colon; D12.3 Benign neoplasm of transverse colon; D12.5 Benign neoplasm of sigmoid colon; K57.30 Diverticulosis of large intestine without perforation or abscess without bleeding; K64.8 Other hemorrhoids; Z86.0101 Personal history of adenomatous and serrated colon polyps; I10 Essential (primary) hypertension; E78.5 Hyperlipidemia, unspecified; Z87.891 Personal history of nicotine dependence; Z79.82 Long term (current) use of aspirin; Z79.899 Other long term (current) drug therapy
CPT/HCPCS: 45385; 45380; 88305; J2003; J2704

== ENCOUNTER → 2024-07-28 08:26 | Outpatient (BNV) | payer OTHER, SELFPAY | PROVIDERS: PCP Internal Medicine; Visit Provider Internal Medicine Gastroenterology | DX: Z12.11 Encounter for screening for malignant neoplasm of colon (principal); Z86.0100 Personal history of colon polyps, unspecified; D12.2 Benign neoplasm of ascending colon; D12.3 Benign neoplasm of transverse colon; D12.5 Benign neoplasm of sigmoid colon; K57.30 Diverticulosis of large intestine without perforation or abscess without bleeding | CPT/HCPCS: 45380; 45385 ==

== ENCOUNTER → 2024-07-30 12:47 | Outpatient (REF) | payer OTHER, SELFPAY ==
--- OUTSIDE RECORDS SUMMARY | 2024-07-30 12:50 | XMS_ITS | Data Portability ---
Author Organization [place] - [facility], Allergy Address [address] [address] Care Team Providers Care Insole Rounder Name Role Phone NILAY KENNEDY Primary Care [...] that Dr. William is in the office. [email or web address] Not available 12/21/2023 10:29:16 02/08/2024 02/08/2024 Canal polyp resolved. Asymmetric hearing loss. Differential reviewed with patient to include asymmetric noise exposure versus retrocochlear pathology to include acoustic neuroma versus others. Reviewed utility of and rationale for MRI of IACs. 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 Recommend hearing protection. For the tinnitus unfortunately [...] [facility]/Pharmacy #[id number], [address] [place], [address], 12/07/2023 11:05:13 TobraDex 0.3 %-0.1 % eye drops,echo pension [address] [facility]/Pharmacy #[id number], [address] [place], [address], 12/21/2023 10:29:42 ciproflox acin 0.3 %-dexamet hasone 0.1 % ear drops,echo pension 2023 024 [email or web address] [facility]/Pharmacy #[id number], [address] [place], [address], 02/08/2024 11:45:24 Patient TargetsNo targets recorded. Patient InstructionsNo instructions recorded. Reason for Referral None Reported. Results Created Date Observation Date Name Description Value Unit Range Abnormal Flag Note LastModifiedBy Organization Detail LastModifiedTime 02/11/20 24 audio gram No observ ation record ed. [email or web address] Not Available 01/21 16:17:16 Result Notes None recorded. Problems Name Problem SNOMED Code Status Onset Date Resolution Date Notes Provider Name and Address Organization Details Recorded Time Hypertensi ve disorder 18259819 Active 2023 Jammie barlow [place] - [facility] 4 10:56:52 Otorrhea of left ear 5687602856328 108 Active 2023 OSCAR CARR MD [address] [place] [address], [facility] [place] [address] , [place] - [facility] 4 11:01:34 Polyp of left external ear canal 0421314588445 100 Active 2023 OSCAR CARR MD 100 [facility],[place] [address], [place], [address] , [facility] - [facility] 4 11:01:46 Cholesteat kandace of external ear 40722610 Active 2023 ED WILLIAM MD [address] [facility],[place] [address], [place], [address] , [facility] - [facility] 4 10:54:03 Bilateral tinnitus 1183233108836 Active 2023 THO BUS[place] [address] [facility],[place] [address], [place], [address] , 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 - [facility] 4 12:27:52 Problem Notes None recorded. Procedures Surgical History Date Name Laterality Status Provider Name and Address Organization Details Recorded Time 4 Comp Audio with Tymps (25263 & 83294) completed THO BUSBY [address] [facility],[place] [address], [place], [address], [facility] - [facility] 02/08/2024 12:27:18 4 Debridement of Ear canal left completed ED WILLIAM MD [facility] [place] [address], [place], [address], [facility] - [facility] 01/08/2024 10:56:54 Imaging Results Imaging Date Name Status LastModified by Organ [facility] Details LastModified Time 02/11/2024 audiogram completed [email or web address] Information n ot available 02/11/2024 16:17:16 Procedure [...] Updated DateTime 01/08/2024 177.8 cm 33 kg/m2 318013.25 g Lavelle Campa [place] - [facility] 01/08/2024 10:05:44 Date Recorded Body height Body mass index (BMI) Body weight Provider Name and Address Organization Details Last Updated DateTime 12/07/2023 177.8 cm 33 kg/m2 392179.25 g Jammie Prasad [place] - [facility] 12/07/2023 10:49:45 Date Recorded Body height Body mass index (BMI) Body weight Provider Name and Address Organization Details Last Updated DateTime 12/21/2023 177.8 cm 33 kg/m2 726605.25 g Emmie Alvarez [place] - [facility] 12/21/2023 09:48:45 Social History Question Answer Notes LastModified by Organizat ion Details LastModified Time Tobacco Smoking Status Never Smoker Jammie barlow [place] - [facility] 12/07/2023 10:55:58 What Is Your Level Of Alcohol Consumption? Occasional [email or web address] Information not available 12/07/2023 Do You Or Have You Ever Used Any Other Forms Of Tobacco Or Nicotine? No [email or web address] Information not available 12/07/2023 Sex: Unknown Functional Status None recorded. Mental Status None recorded. Family History Nothing Reported. Medical History Condition Response Hypertension Y Immunizations Vaccine Type Date Status Note Provider Nam e and Address Organization Details Recorded Time influenza nasal, unspecified formulation 3 completed Jammie barlow [place] - [facility] 12/07/2023 10:55:15 Past Encounters Encounter ID Performer Location Encounter Start Date Encounter Closed Date Diagnosis/Indication Diagnosis SNOMED-CT Code Diagnosis ICD10 Code Diagnosis Note [id number] OSCAR CARR MD [facility] [address] [address] 12/07/2023 10:15:49 12/07/2023 11:07:26 Otorrhea of left ear [id number] 348807 H92.12 Left-sided otorrhea has been present for [...] ear precaution s. [facility]. At that time considerat ion could be given to adjustment of medication s, further debridemen t, removal of polyp. Eventually when the infection is under control investigat ion of hearing testing will be helpful Polyp of l eft external ear canal [id number] 074600 H61.892 [id number] OSCAR CARR MD [facility] 100 [facility] [place] [address] 12/21/2023 09:35:38 12/21/2023 10:20:20 Otorrhea of left ear 3224654634 831742 H92.12 Polyp of l eft external ear canal 9970910858 243546 H61.892 [id number] ED WILLIAM MD [facility] [address] [place] [address] 01/08/2024 09:52:47 01/08/2024 10:56:20 Cholesteatoma of external ear 00301247 H60.42 Patient had a large deeply impacted [...] Polyp of l eft external ear canal 0443795360 011244 H61.892 The inflammato ry polyp appears smaller than previous descriptio ns, hopefully this will resolve with treatment with the above-ment ioned regimen. [id number] XOCHITL NORTON MD [facility] [address] [place] [address] 02/08/2024 11:32:35 02/08/2024 12:39:17 Bilateral tinnitus 1007345737 102 H93.13 Sensorineu ral hearing loss in left ear 6435494537 9109 H90.42 Audiologic al evaluation results: Right [...] Khan Member ID Guarantor Name 12/07/2023 2 [email or web address] [id number] Oliverio Elloit [id number] Oliverio Elliot 12/21/2023 2 [email or web address] [id number] Oliverio Elliot [id number] Oliverio Elliot 01/08/2024 1 [email or web address] - [facility] PPO (PPO) [id number] Oliverio W Elliot [id number] Oliverio Elliot 02/08/2024 1 [employer] - [facility] PPO (PPO) [id number] Oliverio Zarate [id number] Oliverio Zarate Notes Date Note Type Note [...] prior ear surgery OSCAR CARR MD [address] [facility],[place] [address], [place], [address], [facility] - [facility] 12/07/2023 11:08:35 12/21/2023 text/html 48-year-old male presents for follow-up of left sided otorrhea and ear canal polyp. He has been using TobraDex. No further otorrhea. Denies otalgia. Hearing continues to feel decreased on the left. Denies prior otologic surgeries or history of chronic ear infections. OSCAR CARR MD 100 [facility],[address], [address], [facility] - [facility] 12/21/2023 18:05:17 01/08/2024 text/html 48-year-old male [...] New onset tinnitus ED WILLIAM MD 100 [facility], [place], [address], [facility] - [facility] 01/08/2024 11:00:04 02/08/2024 text/html 49 year [...] in the left greater than right ear. 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 XOCHITL NORTON MD [address] [place] [address], [place], [address], [place] - [facility] 02/09/2024 05:12:33
== END ==
LOC: HO.SL 12:47
PROVIDERS: PCP Internal Medicine; Visit Provider Internal Medicine
DX: G47.30 Sleep apnea, unspecified (principal); R53.83 Other fatigue; Z02.89 Encounter for other administrative examinations
CPT/HCPCS: 95806

== ENCOUNTER → 2024-07-30 13:34 | Outpatient (BNV) | payer OTHER, SELFPAY | PROVIDERS: PCP Internal Medicine; Visit Provider Psychiatry & Neurology Neurology | DX: G47.33 Obstructive sleep apnea (adult) (pediatric) (principal) | CPT/HCPCS: 95806 ==

== ENCOUNTER 2024-08-11 12:16 | Outpatient (AMB) | payer OTHER, SELFPAY ==
[2024-08-11 12:31] VITALS: BP 138/76; PULSE 94; O2SAT 96; BMI 34.5
--- NOTE | 2024-08-11 12:31 | A.OFFPC_ITS ---
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 Required: No Accompanied by: Self / Same As Patient Allergies No Known Allergies Allergy (Verified 08/11/24 12:32) Tobacco use date assessed: 08/11/24 Dental Screening Dental Screen Date: 08/11/24 Did you have a dental visit in the last 12 months?: No Did you have a dental problem in the last 6 months where you did not have access to dental care?: No Was dental information given to patient?: No HPI 6 month f/u HPI Details Patient comes in today for his follow up visit He had his repeat colonoscopy done a couple of weeks ago States that he feels okay He denies any headaches or dizziness Denies any chest pains, no SOB No nausea/vomiting, no abdominal pain No change in bowel habits noted He had his follow up labs done back in late May 2024 - to discuss his results He would also like to know if the results of his home sleep study done a couple of weeks ago came out yet [facility] Medical History (Updated 08/11/24 @ 13:34 by Jewel Ocampo MD) Obstructive sleep apnea Impaired fasting glucose Mixed hyperlipidemia GERD without esophagitis Obesity (BMI 30-39.9) BPH (benign prostatic hyperplasia) Dyslipidemia Essential hypertension Surgical History H/O colonoscopy History of prostate surgery Family History Father Diabetes Hypertension Mother Hypertension Family/Other Asthma Social History Housing: House Alcohol intake: current Alcohol intake frequency: a few times a month Alcohol type: beer Patient Tobacco Use Status: Former Tobacco user Tobacco use type: Cigarette e-Cigarette/Vaping Use: Never Used Second Hand Smoke Exposure: No service: No Current occupational status: employed Current occupational exposures/hazards: No Cognitive needs: No Hearing needs: No Vision needs: No Questionnaire PHQ-9 Over the last 2 weeks, how often have you been bothered by any of the following problems? 1. Little interest or pleasure in doing things: not at all 2. Feeling down, depressed, or hopeless: not at all 3. Trouble falling or staying asleep, or sleeping too much: not at all 4. Feeling tired or having little energy: not at all 5. Poor appetite or overeating: not at all 6. Feeling bad about yourself - or that you are a failure or have let yourself or your family down: not at all 7. Trouble concentrating on things, such as reading the newspaper or watching television: not at all 8. Moving or speaking so slowly that other people could have noticed. Or the opp osite - being so fidgety or restless that you have been moving around a lot more than usual: not at all 9. Thoughts that you would be better off or of hurting yourself in some way: not at all Total score: 0 Depression Screening Interpretation: Negative Depression Screening Done: Yes 67150 - PHQ-9 Billing: Yes Source: Developed by Drs. Robert Stephenson, Noelle Hirsch, Luan Collazo and colleagues, with an educational vanessa from [employer]. Thrive Questionnaire Date Thrive assessed: 08/11/24 I am a: Patient What is your living situation today?: I have a steady place to live Within the past 12 months, did the food you bought not last and you didn't have the money to get more?: Never true Within the past 12 months, did you worry whether your food would run out before you got money to buy more?: Never true Do you have trouble paying for medicines?: No Do you have trouble getting transportation to medical appointments?: No Do you have trouble paying your heating and electricity bill?: No Do you have trouble taking care of your child, family member or friend?: No Do you have trouble with day-to-day activities such as bathing, preparing meals, shopping, managing finances, etc.?: No Are you currently unemployed and looking for a job?: No Are you interested in more education?: No Please select the resources that you would like help with: None Currently or been in a relationship where the following occur: No concerns reported THRIVE Score: 0 AUDIT C Alcohol Use Questionnaire (AUDIT-C) 1. How often do you have a drink containing alcohol?: 2-4 times a month 2. How many drinks containing alcohol do you have on a typical day when you are drinking?: 1 or 2 3. How often do you have six or more drinks on one occasion?: Never Total Score: 2 Score Reviewed/Action Taken: Yes ARLEEN-7 AMB Questionnaire ARLEEN-7 Date ARLEEN - 7 assessed: 08/11/24 Feeling nervous, anxious, or on edge: 0 = Not at all Not being able to stop or control worryin = Not at all Worrying too much about different things: 0 = Not at all Trouble relaxin = Not at all Being so restless that it is hard to sit still: 0 = Not at all Becoming easily annoyed or irritable: 0 = Not at all Feeling afraid as if something awful might happen: 0 = Not at all Total ARLEEN-7 score (0-4 normal; 5-9 mild; 10-14 moderate; 15-21 severe): 0 Source: Developed by Drs. Robert Stephenson, Noelle Hirsch, Luan Collazo and colleagues, with an educational vanessa from [employer]. Review of Systems Const Denies chills, Denies fatigue, Denies fever(s) and Denies headache(s) ENT Denies dysphagia, Denies dizziness, Denies otalgia, Denies headache(s), Denies neck pain, Denies odynophagia and Denies sore throat Card Denies chest pain, Denies irregular heart rhythm, Denies palpitations and Denies dyspnea Resp Denies chest congestion, Denies cough and Denies dyspnea GI Denies abdominal pain, Denies constipation, Denies dysphagia, Denies heartburn, Denies diarrhea, Denies nausea, Denies odynophagia and Denies vomiting Denies difficulty urinating, Denies dysuria and Denies urinary frequency Musc Denies back pain, Denies arthralgias and Denies neck pain Skin/Breast Denies rash Neuro Denies dizziness, Denies headache(s) and Denies paresthesias Endo Denies fatigue and Denies palpitations Physical exam (Primary Care) Vital Signs: Last Vital Signs Pulse 94 08/11/24 12:31 BP 138/76 08/11/24 12:31 Pulse Ox 96 08/11/24 12:31 Oxygen Delivery Method Room Air 08/11/24 12:31 BMI result Body Mass Index 34.5 Tobacco/Smoking Status: Tobacco use Status Tobacco use date assessed 08/11/24 08/11/24 12:37 Patient Tobacco Use Status Former Tobacco user 08/11/24 12:37 Tobacco use type Cigarette 08/11/24 12:37 e-Cigarette/Vaping Use Never Used 08/11/24 12:37 PHQ-9: PHQ-9 Score PHQ-9: Total score 0 08/11/24 12:37 Depression Screening Interpretation: Negative Thrive Assessment: Date of Thrive Assessment Date Thrive assessed 08/11/24 08/11/24 12:37 Currently or been in a relationship where the following occur: No concerns reported Const General: no acute distress and alert HENMT Ears: TM's normal bilaterally and EAC's normal Throat: Yes posterior oropharynx normal and Yes tonsils normal (no TP congestion) Neck Neck: Yes supple and No lymphadenopathy Thyroid: Thyroid normal Resp Auscultation: clear to auscultation bilaterally, no rales and no wheezes Cardio Rate: regular rate Rhythm: regular rhythm Heart sounds: no murmurs GI Palpation (GI): Soft to palpation and nontender Auscultation: normal bowel sounds General: Yes no CVA tenderness Back/Spine/Pelvis Back: no CVA tenderness Thoracic/Lumbar Spine: thoracic and lumbar spine normal to inspection Skin Rashes: no rashes Extrem General: Yes no clubbing, cyanosis or edema Results Reviewed Results Reviewed: Laboratory Tests 06/18/24 06/18/24 09:40 09:42 WBC 5.9 Hgb 15.1 Hct 44.6 Plt Count 244 Sodium 140 Potassium 3.7 Creatinine 0.82 Estimated GFR > 60 Fasting Glucose 85 Calcium 9.1 AST 26 ALT 45 H Triglycerides 193 H Cholesterol 175 LDL Cholesterol, Calc 100 H HDL Cholesterol 37 L PSA Screen 1.04 25-OH Vitamin D Total 36.6 TSH 1.34 Ur Specific Mitchell 1.015 Urine Protein Negative Urine Glucose (UA) Negative Urine Blood Negative Urine Nitrite Negative Ur Leukocyte Esterase Negative Coding Level of Care Code Est Pt Level 4 (11625) Diagnoses Essential hypertension I10 Mixed hyperlipidemia E78.2 Impaired fasting glucose R73.01 Obstructive sleep apnea G47.33 GERD without esophagitis K21.9 Benign prostatic hyperplasia, unspecified whether lower urinary tract symptoms present N40.0 Lower urinary tract symptom presence: unspecified whether lower urinary tract symptoms present Obesity (BMI 30-39.9) E66.9 Additional Codes PHQ-9 - 27633 - PHQ-9 Billing: Yes ([id number]) Assessment & Plan Assessment & Plan (1) Essential hypertension: Code(s): I10 - Essential (primary) hypertension Category: Medical Plan: Reinforced low sodium diet - goal is systolic BP of 120 mm or less Continue Losartan 100 mg QD, Amlodipine 5 mg QD and Hydralazine 50 mg BID Patient is again reminded to continue monitoring his blood pressure regularly (2) Mixed hyperlipidemia: Code(s): E78.2 - Mixed hyperlipidemia Category: Medical Plan: Results of his labs done back in late May 2024 reviewed and discussed with patient - he is advised that his serum triglyceride level was still elevated at the time but all of his other cholesterol numbers are good or acceptable Reinforced low cholesterol diet Will recheck his labs and fasting lipids in 6 months for follow up (3) Impaired fasting glucose: Code(s): R73.01 - Impaired fasting glucose Category: Medical Plan: Reinforced low calorie/low carb diet; exercise as tolerated His FBS was normal at 85 mg/dL when last checked in May 2024; his HgbA1c was normal at 5.3% when checked earlier last year (4) Obstructive sleep apnea: Code(s): G47.33 - Obstructive sleep apnea (adult) (pediatric) Category: Medical Plan: His home sleep study done a couple of weeks ago on 07/30/2024 came out positive for moderate degree of sleep apnea with increased severity in supine sleep He will be scheduled for an in-lab sleep study with CPAP titration by sleep medicine soon Follow up with sleep medicine as scheduled (5) GERD without esophagitis: Code(s): K21.9 - Gastro-esophageal reflux disease without esophagitis Category: Medical Plan: Dietary restrictions reinforced Continue Omeprazole 20 mg QD (6) BPH (benign prostatic hyperplasia): Code(s): N40.0 - Benign prostatic hyperplasia without lower urinary tract symptoms Category: Medical Qualifiers: Lower urinary tract symptom presence: unspecified whether lower urinary tract symptoms present Qualified Code(s): N40.0 - Benign prostatic hyperplasia without lower urinary tract symptoms Plan: S/P prostate surgery in 08/2016 Continue Tamsulosin 0.4 mg Q HS Follow up with urology as scheduled (7) Obesity (BMI 30-39.9): Code(s): E66.9 - Obesity, unspecified Category: Medical Plan: Reinforced diet/exercise as tolerated/lose weight Plan To return in 6 months for his next annual physical examination Orders: Orders Complete Blood Count Auto Diff 6 Months D64.9 - Anemia, unspecified, Z00.00 - E ncounter for general adult medical examination without abnormal findings Comprehensive [place]. Panel Fast 6 Months E78.00 - Pure hypercholesterolemia, unspecified, Z00.00 - Encounter for general adult medical examination without abnormal findings UA CC w/rflx Micro + Cult 6 Months R30.0 - Dysuria, Z00.00 - Encounter for general adult medical examination without abnormal findings Lipid Panel 6 Months E78.00 - Pure hypercholesterolemia, unspecified, Z00.00 - Encounter for general adult medical examination without abnormal findings Vitamin D 25-OH Total 6 Months E55.9 - Vitamin D deficiency, unspecified, Z00.00 - Encounter for general adult medical examination without abnormal findings
--- OUTSIDE RECORDS SUMMARY | 2024-08-11 13:13 | XMS_ITS | Data Portability ---
Author Organization [place] - [facility], Allergy Address [address] [address] Care Team Providers Care Senior Behavioral Scientist Name Role Phone NILAY KENNEDY Primary Care [...] that Dr. William is in the office. [email or web address] Not available 12/21/2023 10:29:16 02/08/2024 02/08/2024 Canal polyp resolved. Asymmetric hearing loss. Differential reviewed with patient to include asymmetric noise exposure versus retrocochlear pathology to include acoustic neuroma versus others. Reviewed utility of and rationale for MRI of IACs. 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 Recommend hearing protection. For the tinnitus [...] Modified Time Details Appointments Hearing Test 2024 09:00A M Hearing Test Not available Not available Not available Establish ed 15 2024 09:45A M CHADWICK VARGAS PA-C Not available Not available Not available Lab None recorded. Referral None recorded. Procedures None recorded. Surgeries None recorded. Imaging None recorded. Medication Orders TobraDex 0.3 %-0.1 % eye drops,echo pension 2023 024 [facility]/Pharmacy #[id number], [address] [place], [address], 12/07/2023 11:05:13 TobraDex 0.3 %-0.1 % eye drops,echo pension 2023 024 [facility]/Pharmacy #1234, [address] [place], [address], 12/21/2023 10:29:42 ciproflox acin 0.3 %-dexamet hasone 0.1 % ear drops,echo pension 2023 024 [email or web address] 32 [facility]/Pharmacy #1234, [address] [place], [address], 02/08/2024 11:45:24 Patient TargetsNo targets recorded. Patient InstructionsNo instructions recorded. Reason for Referral None Reported. Results Created Date Observation Date Name Description Value Unit Range Abnormal Flag Note LastModifiedBy Organization Detail LastModifiedTime 02/11/20 24 audio gram No observ ation record ed. [email or web address] Not Available 01/21 16:17:16 Result Notes None recorded. Problems Name Problem SNOMED Code Status Onset Date Resolution Date Notes Provider Name and Address Organization Details Recorded Time Hypertensi ve disorder 92298858 Active 2023 Jammie barlow [place] - [facility] 10:56:52 Otorrhea of left ear [id number] 108 Active 2023 OSCAR CARR MD [address] [place] [address], [facility] [place], [address] , [place] - [facility] 4 11:01:34 Polyp of left external ear canal 6192465558902 100 Active 2023 OSCAR CARR MD [address] [facility],[place] [address], [facility] [place], [address] , [facility] - [facility] 4 11:01:46 Cholesteat kandace of external ear 74309133 Active 2023 ED WILLIAM MD [address] [facility],[place] [address], [facility] [place], [address] , [facility] - [facility] 4 10:54:03 Bilateral tinnitus 1505861324367 Active [address] [facility],[place] [address], [place], [address] , [facility] - [facility] 4 12:27:34 Sensorineu ral hearing loss in left ear 4065707454057 9 Active [address] [facility],[place] [address], [place], [address] , [facility] - [facility] 4 12:27:52 Problem Notes None recorded. Procedures Surgical History Date Name Laterality Status Provider Name and Address Organization Details Recorded Time 4 Comp Audio with Tymps (62191 & 27274) completed THO BUSBY [address] [facility],[place] [address], [place], [address], [facility] - [facility] 02/08/2024 12:27:18 4 Debridement of Ear canal left completed ED WILLIAM MD 100 [facility],[place] [address], [place], [address], [facility] - [facility] 01/08/2024 10:56:54 Imaging Results Imaging Date Name Status [facility]Modified by [facility] Details LastModified Time 02/11/2024 audiogram completed [email or web address] Information n ot available 02/11/2024 16:17:16 Procedure [...] completed Not Available Not Available Not Available ofloxacin 0.3 % eye drops INSTILL 1 DROP INTO AFFECTED EYE(S) 3 TIMES A DAY FOR 7 DAYS active Not Available Not Available No t Available hydralazine 25 mg tablet TAKE 1 [...] completed Not Available Not Available Not Available neomycin-ba citracin-po lymyxn 3.5 mg-400 unit-10,000 unit/gram eye oint PLEASE SEE ATTACHED FOR DETAILED DIRECTION S active Not Available Not Available No t Available tamsulosin 0.4 mg capsule TAKE 1 [...] Available bisacodyl 5 mg tablet,letty yed release TAKE 2 TABLETS BY MOUTH AT 12PM AND 2 TABLETS AT 5PM WITH WATER THE DAY BEFORE COLONOSCO PY active Not Available Not Available No t Available hydralazine 50 mg tablet TAKE 1 TABLET BY MOUTH TWICE A DAY FOR 90 DAYS active Not [...] 236 gram-22.74 gram-6.74 gram-5.86 gram oral solution PLEASE SEE ATTACHED FOR DETAILED DIRECTION S active Not Available Not Available No t Available Vitals Date Recorded Body height Body mass index (BMI) Body weight Provider Name and Address Organization Details Last Updated DateTime 01/08/2024 177.8 cm 33 kg/m2 076751.25 g Lavelle Campa [place] - [facility] 01/08/2024 10:05:44 Date Recorded Body height Body mass index (BMI) Body weight Provider Name and Address Organization Details Last Updated DateTime 12/07/2023 177.8 cm 33 kg/m2 202228.25 g Jammie Prasad [facility] 12/07/2023 10:49:45 Date Recorded Body height Body mass index (BMI) Body weight Provider Name and Address Organization Details Last Updated DateTime 12/21/2023 177.8 cm 33 kg/m2 363268.25 g Emmie Alvarez [facility] 12/21/2023 09:48:45 Social History Question Answer Notes LastModified by Organizat ion Details LastModified Time Tobacco Smoking Status Never Smoker Jammie barlow [place] - [facility] 12/07/2023 10:55:58 What Is Your Level Of Alcohol Consumption? Occasional Information not available 12/07/2023 Do You Or Have You Ever Used Any Other Forms Of Tobacco Or Nicotine? No Information not available 12/07/2023 Sex: Unknown Functional Status None recorded. Mental Status None recorded. Family History Nothing Reported. Medical History Condition Response Hypertension Y Immunizations Vaccine Type Date Status Note Provider Nam e and Address Organization Details Recorded Time influenza nasal, unspecified formulation 3 completed Jammie barlow [place] [facility] 12/07/2023 10:55:15 Past Encounters Encounter ID Performer Location Encounter Start Date Encounter Closed Date Diagnosis/Indication Diagnosis SNOMED-CT Code Diagnosis ICD10 Code Diagnosis Note [id number] OSCAR CARR MD [facility] [address] [place] [address] 12/07/2023 10:15:49 12/07/2023 11:07:26 Otorrhea of left ear [id number] 993465 H92.12 Left-sided otorrhea has been present for [...] dry ear precaution s. Follow-up with physician clinical physician assistant for reassessme nt in approximat yehuda 2 weeks. At that time considerat ion could be given to adjustment of medication s, further debridemen t, removal of polyp. Eventually when the infection is under control investigat ion of hearing testing will be helpful Polyp of l eft external ear canal 6862277084 258198 H61.892 [id number] OSCAR CARR MD [facility] [address] [address] 12/21/2023 09:35:38 12/21/2023 10:20:20 Otorrhea of left ear [id number] 746443 H92.12 Polyp of l eft external ear canal 0390797069 436352 H61.892 [id number] ED WILLIAM MD [facility] [address] [address] 01/08/2024 09:52:47 01/08/2024 10:56:20 Cholesteatoma of external ear 81305782 H60.42 Patient had a large deeply impacted [...] Polyp of l eft external ear canal 7990151270 292507 H61.892 The inflammato ry polyp appears smaller than previous descriptio ns, hopefully this will resolve with treatment with the above-ment ioned regimen. [id number] XOCHITL NORTON MD [facility] [address] [place] [address] 02/08/2024 11:32:35 02/08/2024 12:39:17 Bilateral tinnitus 1905041995 102 H93.13 Sensorineu ral hearing loss in left ear 4356058347 9109 H90.42 Audiologic al evaluation results: Right ear: {{Normal* Mild Moder ate Modera tely-sever e Severe P rofound}} {{hearing* sloping to a mild slopi ng to a moderate s loping to moderately severe slo ping to severe slo ping to profound f lat high frequency low frequency mid frequency cookie bite shni curve}} {{with* se nsorineura l hearing loss [...] Concerns Section Related Observation LastModified by Organization Khloeai ls LastModified Time None Recorded Concern Status LastModified by Organization Details LastModified Time None Recorded Advance Directives Directive None Recorded Payers Encounter Date Sequence Insurance Name Policy Number Policy Khan Covered Member ID Khan Member ID Guarantor Name 12/07/2023 2 [employer] [id number] Oliverio Elliot [id number] Oliverio Elliot 12/21/2023 2 [employer] [id number] Oliverio Elliot [id number] Oliverio Elliot 01/08/2024 1 [employer] [place] [facility] [place] [id number] Oliverio W Elliot [id number] Oliverio Elliot 02/08/2024 1 [employer] [place] [facility] [place] [id number] Oliverio W Elliot [id number] Oliverio Elliot Notes Date Note Type Note Provider Name and Address Organization Details Recorded Time 12/07/2023 text/html hearing loss, tinnitusworks [place] - progressive loss despite hearing protectionchronic for a long timeuses ear plugs, recently developed otorrhea. seen at urgent care with rx PO abx with improved pain but continued otorrhea. urgent care noted a TM perforationmno prior ear surgery OSCAR CARR MD [address] [place] [address], [address], [facility] - [facility] 12/07/2023 11:08:35 12/21/2023 text/html 48-year-old male presents for follow-up of left sided otorrhea and ear canal polyp. He has been using TobraDex. No further otorrhea. Denies otalgia. Hearing continues to feel decreased on the left. Denies prior otologic surgeries or history of chronic ear infections. OSCAR CARR MD [address] [place] [address],[address], [address], [facility] 12/21/2023 18:05:17 01/08/2024 text/html 48-year-old male [...] pus. New onset tinnitus ED WILLIAM MD [address] [place] [address],[address], [address], [facility] - [facility] 01/08/2024 11:00:04 02/08/2024 text/html 49 year old [...] in the left greater than right ear. 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 XOCHITL NORTON MD 100 [facility], [place], [address], [facility] - [facility] 02/09/2024 05:12:33
== END 2024-08-11 12:58 | disposition home or self-care (01) ==
PROVIDERS: PCP Internal Medicine; Visit Provider Internal Medicine
DX: I10 Essential (primary) hypertension (principal); E66.9 Obesity, unspecified; Z68.34 Body mass index [BMI] 34.0-34.9, adult; E78.2 Mixed hyperlipidemia; R73.01 Impaired fasting glucose; G47.33 Obstructive sleep apnea (adult) (pediatric); K21.9 Gastro-esophageal reflux disease without esophagitis; N40.0 Benign prostatic hyperplasia without lower urinary tract symptoms

== ENCOUNTER → 2024-08-11 12:16 | Outpatient (BNVA) | payer OTHER, SELFPAY | PROVIDERS: PCP Internal Medicine; Visit Provider Internal Medicine | DX: I10 Essential (primary) hypertension (principal); E78.2 Mixed hyperlipidemia; R73.01 Impaired fasting glucose; G47.33 Obstructive sleep apnea (adult) (pediatric); K21.9 Gastro-esophageal reflux disease without esophagitis; N40.0 Benign prostatic hyperplasia without lower urinary tract symptoms; E66.9 Obesity, unspecified; Z68.34 Body mass index [BMI] 34.0-34.9, adult; Z79.899 Other long term (current) drug therapy | CPT/HCPCS: 96127 ==

== ENCOUNTER → 2024-09-02 12:53 | Outpatient (BNVA) | payer OTHER, SELFPAY | PROVIDERS: PCP Internal Medicine; Visit Provider Physician Assistant Medical ==

== ENCOUNTER → 2024-09-26 19:30 | Outpatient (REF) | payer OTHER, SELFPAY | LOC: HO.SL 19:30 | PROVIDERS: PCP Internal Medicine; Visit Provider Physician Assistant Medical | DX: G47.33 Obstructive sleep apnea (adult) (pediatric) (principal) | CPT/HCPCS: 95811 ==

== ENCOUNTER → 2024-09-26 20:43 | Outpatient (BNV) | payer OTHER, SELFPAY | PROVIDERS: PCP Internal Medicine; Visit Provider Psychiatry & Neurology Neurology | DX: G47.33 Obstructive sleep apnea (adult) (pediatric) (principal) | CPT/HCPCS: 95811 ==

== ENCOUNTER 2024-10-13 06:35 | Outpatient (REF) | payer OTHER, SELFPAY ==
[2024-10-13 07:55] LABS: Iron 133 mcg/dL (45-160); Percent Iron Saturation 39 % (15-50); Total Iron Binding Capacity 337 mcg/dL (228-428); Unsaturated Iron Binding 204 ug/dL
[2024-10-13 08:11] LABS: Ferritin 120 ng/mL (20-250)
[2024-10-13 08:33] LABS: Folate 12.3 ng/mL (> or = 4.0); Vitamin B12 541 pg/mL (200-900)
[2024-10-14 16:34] LABS: Homocysteine 6.8 umol/L (<11.4)
[2024-10-16 12:03] LABS: Methylmalonic Acid 98 nmol/L (55-335)
== END 2024-10-13 06:36 | disposition home or self-care (01) ==
LOC: HO.LAB 06:35
PROVIDERS: PCP Internal Medicine; Visit Provider Physician Assistant Medical
DX: G47.19 Other hypersomnia (principal); G47.9 Sleep disorder, unspecified; R53.83 Other fatigue; Z13.6 Encounter for screening for cardiovascular disorders
CPT/HCPCS: 36415; 82607; 82728; 82746; 83090; 83540; 83921

== ENCOUNTER 2024-10-15 13:08 | Outpatient (AMB) | payer OTHER, SELFPAY ==
[2024-10-15 13:25] VITALS: PULSE 84; O2SAT 97; BMI 34.7
--- NOTE | 2024-10-15 13:25 | MHC.OFFVIS ---
Vital Signs 10/15/24 13:25 Height 5 ft 11 in Weight 249 lb BMI 34.7 Pulse 84 Pulse Source Pulse Oximeter Pulse Oximetry (%) 97 Oxygen Delivery Method Room Air Intake Visit Reasons: 3 mo follow up Intake Note: Patient presents for 3 month follow up SHANT. Sleep study in chart done on 07/30/24. Machine questions Allergies No Known Allergies Allergy (Verified 10/15/24 13:28) HPI Comments Details: 49 year old r. handed male here for f/u of his HST per his PCP. HST 07/30/2024 Titration study 10/15/2024 breathing and and Oxygen stabilzed at 10-13cm H20. Start CPAP at 50vvF53. He has moderate sleep apnea with increased severity in supine sleep. His AHI was 20 and supine AHI was 28 with oxygen carlos at 83% with periodic limb movements. He is being scheduled for CPAP titration to determine ideal pressures for treatment. He was a former smoker and had PFTs done in 09/2021. He denies morning headaches, parasomnias or abnormal sleep disorders. RLS: he notices he moves his legs a lot and has an uncomfortable feeling in his feet bilatreally which keeps him from falling asleep, and it gets worse at night. His memory is good, he occasionally forgets tasks, and needs reminders. His mood is stable, his diet is good. [facility] Medical History Obstructive sleep apnea Impaired fasting glucose Mixed hyperlipidemia GERD without esophagitis Obesity (BMI 30-39.9) BPH (benign prostatic hyperplasia) Dyslipidemia Essential hypertension Surgical History H/O colonoscopy History of prostate surgery Family History Father Diabetes Hypertension Mother Hypertension Family/Other Asthma Social History Housing: House Alcohol intake: current Alcohol intake frequency: a few times a month Alcohol type: beer Patient Tobacco Use Status: Former Tobacco user Tobacco use type: Cigarette e-Cigarette/Vaping Use: Never Used Second Hand Smoke Exposure: No service: No Current occupational status: employed Current occupational exposures/hazards: No Cognitive needs: No Hearing needs: No Vision needs: No Review of Systems Const All systems reviewed & are unremarkable except as noted in HPI and below Physical Exam Vital Signs: Last Vital Signs Pulse 84 10/15/24 13:25 Pulse Ox 97 10/15/24 13:25 Oxygen Delivery Method Room Air 10/15/24 13:25 BMI result Body Mass Index 34.7 Const General: cooperative, comfortable and no acute distress Nutritional Appearance: obese (BMI is 35) Orientation/consciousness: patient oriented x3 Eyes Pupils: Equal, round and reactive pupils present Neck Neck: Yes full ROM and Yes other (c/o l. shoulder pain on rotation) Resp Effort & Inspection: normal respiratory effort and able to speak in complete sentences Neuro General: patient oriented x3 and moves all extremities Cranial nerves: Yes CN's II-XII intact bilaterally, Yes Facial sensation intact/muscles of mastication intact, Yes Equal, round and reactive pupils present, Yes Normal accommodation reflex present, Yes Bilaterally intact EOM present, Yes Nystagmus not present, Yes Normal facial strength present, Yes Midline tongue present, Yes Ability to bilaterally rotate head present and Yes Ability to bilaterally elevate shoulders present Gait exam (Neuro): Normal gait present Motor exam (neuro): 5/5 motor strength present throughout, no tremor noted and Normal motor muscle tone present throughout Deep tendon reflexes (DTR's): Right triceps reflex intensity grade: 2+, Left triceps reflex intensity grade: 2+, Rt Biceps (C5, C6): 2+, Left biceps reflex intensity grade: 2+, Right brachioradialis reflex intensity grade: 2+, Left brachioradialis reflex intensity grade: 2+, Right patellar reflex intensity grade: 2+ and Left patellar reflex intensity grade: 2+ Psych Thought process: Normal thought process present Thought content: Normal thought content present Results Reviewed Results Reviewed: Titration Study completed 09/2024 start CPAP at [id number]. Assessment & Plan Assessment & Plan (1) Excessive daytime sleepiness: Code(s): G47.19 - Other hypersomnia Category: Medical (2) Restless leg syndrome, familial: Code(s): G25.81 - Restless legs syndrome Category: Medical Plan Sleep difficulties start CPAP at [id number] and F/U for compliance in 3 months. Labs Reviewed with patient, Vit D is low and HDL was low. RLS will monitor the legs for numbness/ tingling and difficulty with sleep. F/U in 3 months for compliance Patient Instructions: Sleep Hygiene provided: set a scheduled bedtime and wake time to help regulate the circadian rhythm and balance the release of pituitary hormones. Sleep in a dark room, temperatures below 68 degrees, and no devices n bed. Limit caffeinated products 6 hours prior to bed, and limit fluids 2-4 hours prior to bed. Gentle night yoga, diffusing essential oils, and playing soft music can be relaxing. Vitamin D is low deficient. HDL is low Patient Education provided on supplements to raise these levels. Coding Level of Care Code Est Pt Level 4 (14725) Diagnoses Excessive daytime sleepiness G47.19 Restless leg syndrome, familial G25.81 Time Spent (min) 20
--- OUTSIDE RECORDS SUMMARY | 2024-10-15 15:36 | XMS_ITS | Data Portability ---
Author Organization [place] - [facility], Allergy Address [address] [address] Care Team Providers Care Wildlife Officer Name Role Phone NILAY KENNEDY Primary Care [...] that Dr. William is in the office. [email or web address] Not available 12/21/2023 10:29:16 02/08/2024 02/08/2024 Canal polyp resolved. Asymmetric hearing loss. Differential reviewed with patient to include asymmetric noise exposure versus retrocochlear pathology to include acoustic neuroma versus others. Reviewed utility of and rationale for MRI of IACs. 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 Recommend hearing protection. For the tinnitus unfortunately no cure. Recommend masking. Reviewed indications to call the office sooner. Otherwise recommend 6 month recheck under binocular microscope by Dr. William with updated audiometric testing same day. Patient agreeable. 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 Physical exam reveals no cholesteatoma and no debris. Audiometric testing indicates the hearing has returned to baseline. Normal bilaterally, no need for amplification or annual testing. Recommend follow up in [address] William to ensure the polyp and canal cholesteatoma have not recurred. Patient to call in the interim with any changes or issues that develop. Not available 08/15/2024 11:10:47 Plan of Treatment Reminders Order Date Submit Date Provider Last Modified By Organization Details Last Modified Time Details Appointments Otology Referral 2024 01:00P M ED WILLIAM MD Not available Not available Not available Lab None recorded. Referral None recorded. Procedures None recorded. Surgeries None recorded. Imaging None recorded. Medication Orders ciproflox acin 0.3 %-dexamet hasone 0.1 % ear drops,echo pension 2023 024 [email or web address] [id number], [address] [place], [address], 02/08/2024 11:45:24 TobraDex 0.3 %-0.1 % eye drops,echo pension 2023 025 SUSIE [id number], [address] [facility], [place], [address], 08/15/2024 08:57:45 TobraDex 0.3 %-0.1 % eye drops,echo pension 2023 024 [email or web address] [id number], [address] [place], [address], 08/15/2024 08:57:43 Patient TargetsNo targets recorded. Patient InstructionsNo instructions recorded. Reason for Referral None Reported. Results Created Date Observation Date Name Description Value Unit Range Abnormal Flag Note LastModifiedBy Organization Detail LastModifiedTime 02/11/20 24 audio gram No observ ation record ed. Not Available 01/21 16:17:16 08/15/19 25 audio gram No observ ation record ed. BARCODE Not Available 2024 10:18:04 Result Notes None recorded. Problems Name Problem SNOMED Code Status Onset Date Resolution Date Notes Provider Name and Address Organization Details Recorded Time Hypertensi ve disorder 47274332 Active 2023 Jammie barlow [place] - [facility] 4 10:56:52 Otorrhea of left ear 4350430762993 108 Active 2023 OSCAR CARR MD 100 [facility],[place] [address], [place], [address] , [facility] - [facility] 4 11:01:34 Polyp of left external ear canal 4190604195120 100 Active 2023 OSCAR CARR MD 100 [facility],[place] [address], [place], [address] , [facility] - [facility] 4 11:01:46 Cholesteat kandace of external ear 83968243 Active 2023 ED WILLIAM MD 100 [facility],[place] [address], [place], [address] , [facility] - [facility] 4 10:54:03 Bilateral tinnitus 2042844667134 Active 2023 THO BUSBY 100 [facility],[place] [address], [place], [address] , 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 - [facility] 4 12:27:52 Problem Notes None recorded. Procedures Surgical History Date Name Laterality Status Provider Name and Address Organization Details Recorded Time 5 Air & Speech Audio with Tymps (28247, 07709 & 73341) completed TOH HEARN [facility],TRE [facility], [place], [address], [facility] - [facility] 08/15/2024 09:15:17 07/19/202 4 Comp Audio with Tymps (30686 & 18254) completed THO BUSBY 100 [facility],[place] [address], [place], [address], [facility] 02/08/2024 12:27:18 4 Debridement of Ear canal left completed ED WILLIAM MD 100 [facility],[place] [address], [place], [address], [facility] 01/08/2024 10:56:54 Imaging Results Imaging Date Name Status LastModified by Organiz ation Details LastModified Time 02/11/2024 audiogram completed [email or web address] Information n ot available 02/11/2024 16:17:16 08/15/2024 audiogram completed BARCODE Information no t available 08/15/2024 10:18:04 Procedure Notes None recorded. Medical Equipment None [...] 3 TIMES A DAY FOR 7 DAYS 08/15 completed Not Available Not Available Not Available [...] PLEASE SEE ATTACHED FOR DETAILED DIRECTION S 08/15 completed Not Available Not Available Not Available [...] WITH WATER THE DAY BEFORE COLONOSCO PY 08/15 completed Not Available Not Available Not Available [...] to affected ear BID x 14 days 08/15 completed Not Available Not Available Not Available ciprofloxac in 0.3 %-dexametha sone 0.1 % ear drops,suspe nsion INSTILL 4 DROPS TWICE A DAY BY OTIC ROUTE FOR 10 DAYS. 02/07 completed Not Available Not Available Not Available GaviLyte-G 236 gram-22.74 gram-6.74 gram-5.86 gram oral solution PLEASE SEE ATTACHED FOR DETAILED DIRECTION S 08/15 completed Not Available Not Available Not Available Vitals Date Recorded Body height Body mass index (BMI) Body weight Provider Name and Address Organization Details Last Updated DateTime 01/08/2024 177.8 cm 33 kg/m2 968489.25 g Lavelle Campa [place] - [facility] 01/08/2024 10:05:44 Date Recorded Body height Body mass index (BMI) Body weight Provider Name and Address Organization Details Last Updated DateTime 12/07/2023 177.8 cm 33 kg/m2 385849.25 g Jammie Prasda [place] - [facility] 12/07/2023 10:49:45 Date Recorded Body height Body mass index (BMI) Body weight Provider Name and Address Organization Details Last Updated DateTime 12/21/2023 177.8 cm 33 kg/m2 131548.25 g Emmie Alvarez [place] - [facility] 12/21/2023 09:48:45 Date Recorded Body height Body mass index (BMI) Body weight Provider Name and Address Organization Details Last Updated DateTime 08/15/2024 177.8 cm 33.7 kg/m2 922995.21 g Tara Saez [place] - [facility] 08/15/2024 09:53:35 Social History Question Answer Notes LastModified by Organizat ion Details LastModified Time Tobacco Smoking Status Never Smoker Jammie barlow [place] - [facility] 12/07/2023 10:55:58 What Is Your Level Of Alcohol Consumption? Occasional [email or web address] Information not available 12/07/2023 Do You Or Have You Ever Used Any Other Forms Of Tobacco Or Nicotine? No [email or web address] Information not available 12/07/2023 Sex: Unknown Functional Status None recorded. Mental Status None recorded. Family History Nothing Reported. Medical History Condition Response Hypertension Y Immunizations Vaccine Type Date Status Note Provider Nam e and Address Organization Details Recorded Time influenza nasal, unspecified formulation 3 completed Jammie barlow [place] [facility] 12/07/2023 10:55:15 Past Encounters Encounter ID Performer Location Encounter Start Date Encounter Closed Date Diagnosis/Indication Diagnosis SNOMED-CT Code Diagnosis ICD10 Code Diagnosis Note [id number] OSCAR CARR MD [facility] [address] [address] 12/07/2023 10:15:49 12/07/2023 11:07:26 Otorrhea of left ear 6977825939 137244 H92.12 Left-sided otorrhea has been present for [...] dry ear precaution s. Follow-up with physician head start assistant teacher for reassessme nt in approximat yehuda 2 weeks. At that time considerat ion could be given to adjustment of medication s, further debridemen t, removal of polyp. Eventually when the infection is under control investigat ion of hearing testing will be helpful Polyp of l eft external ear canal 5803395089 098425 H61.892 [id number] OSCAR CARR MD [facility] [address] [address] 12/21/2023 09:35:38 12/21/2023 10:20:20 Otorrhea of left ear 4291480493 090143 H92.12 Polyp of l eft external ear canal 3751720725 928086 H61.892 [id number] ED WILLIAM MD [facility] [address] [address] 01/08/2024 09:52:47 01/08/2024 10:56:20 Cholesteatoma of external ear 28372997 H60.42 Patient had a large deeply impacted [...] Polyp of l eft external ear canal 6635226250 556684 H61.892 The inflammato ry polyp appears smaller than previous descriptio ns, hopefully this will resolve with treatment with the above-ment ioned regimen. [id number] XOCHITL NORTON MD [facility] [address] [place] [address] 02/08/2024 11:32:35 02/08/2024 12:39:17 Bilateral tinnitus 5579089697 102 H93.13 Sensorineu ral hearing loss in left ear 0181405338 9109 H90.42 Audiologic al evaluation results: Right [...] Cou ld not maintain a hermetic seal}} [id number] SHERIF GARCIA MD [facility] [address] [address] 08/15/2024 08:51:11 08/15/2024 10:04:38 Bilateral tinnitus 5078642197 102 H93.13 Audiologic al evaluation results: Right ear:Normal hearing. Left ear:Normal hearing. Tympanomet ry:Right Ear: Type ALeft Ear: Type A Cholesteat kandace of external ear 75496702 H60.42 Polyp of l eft external ear canal 6006100357 299924 H61.892 Health Concerns Section Related Observation LastModified by Organization Detai ls LastModified Time None Recorded Concern Status LastModified by Organization Details LastModified Time None Recorded Advance Directives Directive None Recorded Payers Encounter Date Sequence Insurance Name Policy Number Policy Khan Covered Member ID Khan Member ID Guarantor Name 12/07/2023 2 [employer] [id number] [employer] [id number] [employer] 12/21/2023 [employer] [id number] [employer] [id number] Oliverio Elliot 01/08/2024 1 [employer] P[employer] (PPO) [id number] Oliverio W Elliot [id number] Oil[employer] Elliot 02/08/2024 1 [employer] PPO (PPO) [id number] Oliverio W Elliot [id number] Oliverio Elliot 08/15/2024 1 [employer] (PPO) [id number] Oliverio W Elliot [id number] Oliverio Elliot Notes Date Note Type Note Provider Name and Address Organization Details Recorded Time 12/07/2023 text/html hearing loss, tinnitusworks [place] - progressive loss despite hearing protectionchronic for a long timeuses ear plugs, recently developed otorrhea. seen at urgent care with rx PO abx with improved pain but continued otorrhea. urgent care noted a TM perforationmno prior ear surgery OSCAR CARR MD [address] [place] [address], [address], [facility] - [facility] 12/07/2023 11:08:35 12/21/2023 text/html 48-year-old male presents for follow-up of left sided otorrhea and ear canal polyp. He has been using TobraDex. No further otorrhea. Denies otalgia. Hearing continues to feel decreased on the left. Denies prior otologic surgeries or history of chronic ear infections. OSCAR CARR MD [address] [place] [address],[address], [address], [facility] 12/21/2023 [...] pus. New onset tinnitus ED WILLIAM MD [address] [place], [place] [address], [address], [facility] 01/08/2024 [...] in the left greater than right ear. 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 XOCHITL NORTON MD [address] [place] [address],[address], [address], [facility] 02/09/2024 05:12:33 08/15/2024 text/html 49 year old male presents for re-evaluation of the ears. Over the summer, he was found to have squamous epithelial debris in the left medial canal and surface of the tympanic membrane consistent with canal cholesteatoma which was debrided under the binocular microscope. Audiometric testing demonstrated hearing loss on the left. Patient feels this has returned to baseline. He denies otalgia, otorrhea, and reports his tinnitus has not changed. SHERIF FRAZIER MD [address] [place] [address],[address], [address], [facility] 08/15/2024 12:41:15
== END 2024-10-15 13:57 | disposition home or self-care (01) ==
LOC: HO.HSMS 13:08
PROVIDERS: PCP Internal Medicine; Visit Provider Physician Assistant Medical
DX: G47.19 Other hypersomnia (principal); G25.81 Restless legs syndrome
CPT/HCPCS: 99214

== ENCOUNTER 2025-01-14 13:56 | Outpatient (AMB) | payer OTHER, SELFPAY ==
[2025-01-14 14:03] VITALS: BP 138/82; PULSE 78; O2SAT 96; BMI 36.0
--- NOTE | 2025-01-14 14:03 | A.OFFVIS_ITS ---
Vital Signs 01/14/25 14:03 Height 5 ft 11 in Weight 258 lb 8 oz BMI 36.0 BP 138/82 Blood Pressure Location Lt brachial Position Sitting Pulse 78 Pulse Source Pulse Oximeter Pulse Oximetry (%) 96 Oxygen Delivery Method Room Air Intake Visit Reasons: 3 mnts f/u Intake Note: Patient presents follow up Sleep/RLS. Compliance in chart(70/90 days, >=4hrs-64 days, average usage- 5hrs 35min, Pressure-13cm, Med Leaks- 50.9, AHI-0.8) Allergies No Known Allergies Allergy (Verified 01/14/25 14:05) HPI Comments Details: 49 year old r. handed male here for f/u of his HST per his PCP. 07/30/2024 HST c/w AHI of 20 and Oxygen Nadirs to 83% with periodic limb movements. 10/15/2024 Titration study completed breathing and Oxygen stabilized at 10-13cm H20. Start CPAP at 66diY54. SHANT compliance report 09/2024-12/2024 total usage 70/90 days 78% and >4 hours 64 days 71% total avg. use is 5 hours and 35min press set [id number] Leaks 50.9 AHI is 0.8/hr He is sleeping better then before, has difficulties with his mask as he is a nose breather, he is trying to get better acclimated. He still feels bloated at night when using his mask, as if excess air is being inhaled. He has tried a large mask, and medium mask with chin straps, sometimes he notices the mask gets soaked due to humidity. He does feel more energetic when he wakes up in the morning. He was a former smoker and had PFTs done in 09/2021, gets anxious with the mask on his face. He denies morning headaches, parasomnias or abnormal sleep disorders. RLS: he notices his RLS symtpoms have significantly improved since he started wearing compression stockings. He still has an occasional night of RLS, however most of the time he is able to sleep comfortably through the night. His memory is good, he occasionally forgets tasks, and needs reminders. His mood is stable, his diet is good. [facility] Medical History Obstructive sleep apnea Impaired fasting glucose Mixed hyperlipidemia GERD without esophagitis Obesity (BMI 30-39.9) BPH (benign prostatic hyperplasia) Dyslipidemia Essential hypertension Surgical History H/O colonoscopy History of prostate surgery Family History Father Diabetes Hypertension Mother Hypertension Family/Other Asthma Social History Housing: House Alcohol intake: current Alcohol intake frequency: a few times a month Alcohol type: beer Patient Tobacco Use Status: Former Tobacco user Tobacco use type: Cigarette e-Cigarette/Vaping Use: Never Used Second Hand Smoke Exposure: No service: No Current occupational status: employed Current occupational exposures/hazards: No Cognitive needs: No Hearing needs: No Vision needs: No Physical Exam Vital Signs: Last Vital Signs Pulse 78 01/14/25 14:03 BP 138/82 01/14/25 14:03 Pulse Ox 96 01/14/25 14:03 Oxygen Delivery Method Room Air 01/14/25 14:03 BMI result Body Mass Index 36.0 Results Reviewed Results Reviewed: SHANT compliance report 09/2024-12/2024 total usage 70/90 days 78% and >4 hours 64 days 71% total avg. use is 5 hours and 35min press set [id number] Leaks 50.9 AHI is 0.8/hr Labs reviewed with patient today. Assessment & Plan Assessment & Plan (1) Obstructive sleep apnea: Comment: compliant on cpap Code(s): G47.33 - Obstructive sleep apnea (adult) (pediatric) Category: Medical (2) Restless leg syndrome, familial: Comment: improved Code(s): G25.81 - Restless legs syndrome Category: Medical (3) Low vitamin D level: Code(s): R79.89 - Other specified abnormal findings of blood chemistry Category: Medical Plan SHANT has significantly improved continue therapy at [id number] as patient is experiencing good results. Labs Reviewed with patient, Vit D is low and HDL was low, will start Vit D and impement omega 3s in diet. RLS will monitor the legs for numbness/ tingling and difficulty with sleep, continue compression stockings and elevate the feet as much as possible for a minimum of 2 hours a day. Dry mouth will refer to sleep dentistry for oral appliance evaluation. F/u in 6 months Orders: Referrals Dentistry Referral G47.33 - Obstructive sleep apnea (adult) (pediatric) Medications: New cholecalciferol (vitamin D3) take one 5omcg tablet daily at bedtime. 50 mcg PO DAILY 90 tabs 0RF low vitamin d levels 3 months MDD 50mcg R79.89 - Other specified abnormal findings of blood chemistry Patient Instructions: Sleep Hygiene provided: set a scheduled bedtime and wake time to help regulate the circadian rhythm and balance the release of pituitary hormones. Sleep in a dark room, temperatures below 68 degrees, and no devices n bed. Limit caffeinated products 6 hours prior to bed, and limit fluids 2-4 hours prior to bed. Gentle night yoga, diffusing essential oils, and playing soft music can be relaxing. Continue wearing compression stockings for a minimum of 2 hours daily and elevate the feet. Continue to take 400mg magnesium at bedtime and 200mg B6 for RLS symptoms. Continue to wash mask and tubing, change out filters and fill reservoir with distilled water. F/u in 6 months. Coding Level of Care Code Est Pt Level 4 (23474) Diagnoses Obstructive sleep apnea G47.33 Restless leg syndrome, familial G25.81 Low vitamin D level R79.89 Time Spent (min) 20 Comment Improved
--- OUTSIDE RECORDS SUMMARY | 2025-01-14 16:41 | XMS_ITS | Patient Health Record ---
[facility] Address [address] [place] [address] Care Team Providers Care Packer Sausage And Wiener Name Role Phone Terrence MONCADA, Loa Primary Care Provider Unava Rebeca Ryan Unavailable [phone] Reason For Referral No Information Medications Medication SIG (Take, Route, Frequency, Duration) Notes Start Date End Date Status Neurontin 300 MG 1 capsule bid for 90 days Active Losartan Potassium 100 MG 1 tablet Orall y Once a day for 30 day(s) Active Flomax 0.4 MG 1 capsule Orally Onc e a day for 30 day(s) Active Gabapentin 300 MG TAKE 1 CAPSULE BY [facility] AT BEDTIME Active Social History Tobacco Use: Social History Observation Description Date Details (start date - stop date) Former Smoker NA - NA Tobacco Use/Smoking Question Answer Notes Are you a: former smoker Additional Findings: Tobacco Non-User Current no n-smoker Alcohol Screen Question Answer Notes Did you have a drink contain ing alcohol in the past year? Yes How often did you have a dri nk containing alcohol in the past year? 2 to 4 times a month (2 points) Points 2 Interpretation Negative Tobacco use other than smoking: Question Answer Notes Are you an other tobacco user? No Plan Of Treatment No Information Insurance Providers Payer Name Payer Address Payer Phone Subscriber Number Group Number Insured Name Patient Relationship to Insured Coverage Start Date Coverage End Date [employer] [address] [place] [address] [id number] Isma Zarate Self - patient is the insured Medical (General) History Surgical History Surgery Date(Month/Year) Tooth extraction 2018
== END 2025-01-14 14:44 | disposition home or self-care (01) ==
LOC: HO.HSMS 13:57
PROVIDERS: PCP Internal Medicine; Visit Provider Physician Assistant Medical
DX: G47.33 Obstructive sleep apnea (adult) (pediatric) (principal); G25.81 Restless legs syndrome; R79.89 Other specified abnormal findings of blood chemistry
CPT/HCPCS: 99214

== ENCOUNTER 2025-02-19 08:36 | Outpatient (AMB) | payer OTHER, SELFPAY ==
--- NOTE | 2025-02-19 08:39 | MHC.PC.OV ---
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 Required: No Accompanied by: Self / Same As Patient Allergies No Known Allergies Allergy (Verified 02/19/25 09:16) Medication List - Last Reconciled 02/19/25 by Jewel Ocampo MD amlodipine 5 mg PO DAILY 90 days aspirin (Adult Low Dose Aspirin) 81 mg PO DAILY cholecalciferol (vitamin D3) 50 mcg PO DAILY 3 months MDD 50mcg hydralazine 50 mg PO BID 90 days ibuprofen 800 mg PO Q8H PRN 14 days losartan 100 mg PO DAILY Tobacco use date assessed: 02/19/25 Dental Screening Dental Screen Date: 02/19/25 Did you have a dental visit in the last 12 months?: No Did you have a dental problem in the last 6 months where you did not have access to dental care?: No Was dental information given to patient?: No HPI Annual exam HPI Details Patient comes in today for his annual physical examination States that he feels okay He denies any headaches or dizziness Denies any chest pains, he denies any SOB but notes (+) mild MALLOY and states that he feels winded often and is pretty sure that this is mostly due to his weight No nausea/vomiting, no abdominal pain but reports that he feels bloated often, which he also thinks is related to his weight No change in bowel habits noted Denies any acute urinary symptoms States that he recently started using his CPAP device but has been having trouble sleeping at night consistently since Relates that he finds it very uncomfortable having something on his face when he is trying to sleep at night He was not able to get his follow up labs done prior to coming in for his appt today He had his last screening colonoscopy done with Dr. Gatica earlier this year on 07/28/2024 - (+) tubular adenoma and he was recommended for repeat colonoscopy in 2 to 3 years (~2026 or 2027) [facility] Medical History (Updated 02/19/25 @ 09:48 by Jewel Ocampo MD) Vitamin D deficiency Insomnia Obstructive sleep apnea Impaired fasting glucose Mixed hyperlipidemia GERD without esophagitis Obesity (BMI 30-39.9) BPH (benign prostatic hyperplasia) Dyslipidemia Essential hypertension Surgical History (Updated 02/19/25 @ 09:17 by Jewel Ocampo MD) H/O colonoscopy History of prostate surgery Family History Father Diabetes Hypertension Mother Hypertension Family/Other Asthma Social History Housing: House Alcohol intake: current Alcohol intake frequency: a few times a month Alcohol type: beer Patient Tobacco Use Status: Former Tobacco user Tobacco use type: Cigarette e-Cigarette/Vaping Use: Never Used Second Hand Smoke Exposure: No service: No Current occupational status: employed Current occupational exposures/hazards: No Cognitive needs: No Hearing needs: No Vision needs: No Questionnaire PHQ-9 Over the last 2 weeks, how often have you been bothered by any of the following problems? 1. Little interest or pleasure in doing things: not at all 2. Feeling down, depressed, or hopeless: not at all 3. Trouble falling or staying asleep, or sleeping too much: not at all 4. Feeling tired or having little energy: not at all 5. Poor appetite or overeating: not at all 6. Feeling bad about yourself - or that you are a failure or have let yourself or your family down: not at all 7. Trouble concentrating on things, such as reading the newspaper or watching television: not at all 8. Moving or speaking so slowly that other people could have noticed. Or the opposite - being so fidgety or restless that you have been moving around a lot more than usual: not at all 9. Thoughts that you would be better off or of hurting yourself in some way: not at all Total score: 0 Depression Screening Interpretation: Negative Depression Screening Done: Yes 22824 - PHQ-9 Billing: Yes Source: Developed by Drs. Robert Stephenson, Noelle Hirsch, Luan Collazo and colleagues, with an educational vanessa from [employer]. Thrive Questionnaire Date Thrive assessed: 02/19/25 I am a: Patient What is your living situation today?: I have a steady place to live Within the past 12 months, did the food you bought not last and you didn't have the money to get more?: Never true Within the past 12 months, did you worry whether your food would run out before you got money to buy more?: Never true Do you have trouble paying for medicines?: No Do you have trouble getting transportation to medical appointments?: No Do you have trouble paying your heating and electricity bill?: No Do you have trouble taking care of your child, family member or friend?: No Do you have trouble with day-to-day activities such as bathing, preparing meals, shopping, managing finances, etc.?: No Are you currently unemployed and looking for a job?: No Are you interested in more education?: No Please select the resources that you would like help with: None Currently or been in a relationship where the following occur: No concerns reported THRIVE Score: 0 AUDIT C Alcohol Use Questionnaire (AUDIT-C) 1. How often do you have a drink containing alcohol?: 2-4 times a month 2. How many drinks containing alcohol do you have on a typical day when you are drinking?: 1 or 2 3. How often do you have six or more drinks on one occasion?: Never Total Score: 2 Score Reviewed/Action Taken: Yes ARLEEN-7 AMB Questionnaire ARLEEN-7 Date ARLEEN - 7 assessed: 02/19/25 Feeling nervous, anxious, or on edge: 0 = Not at all Not being able to stop or control worryin = Not at all Worrying too much about different things: 0 = Not at all Trouble relaxin = Not at all Being so restless that it is hard to sit still: 0 = Not at all Becoming easily annoyed or irritable: 0 = Not at all Feeling afraid as if something awful might happen: 0 = Not at all Total ARLEEN-7 score (0-4 normal; 5-9 mild; 10-14 moderate; 15-21 severe): 0 Source: Developed by Drs. Robert Stephenson, Noelle Hirsch, Luan Collazo and colleagues, with an educational vanessa from [employer]. Review of Systems Const Denies chills, Reports difficulty sleeping, Reports fatigue, Denies fever(s), Denies headache(s), Denies malaise and Denies weakness Eyes Denies blurry vision, Denies change in vision, Denies irritation and Denies itchy eyes ENT Denies dysphagia, Denies dizziness, Denies otalgia, Denies headache(s), Denies nasal congestion, Denies neck pain, Denies odynophagia and Denies sore throat Card Denies chest pain, Denies rapid heart rate, Denies irregular heart rhythm, Denies palpitations and Reports dyspnea on exertion (mild, on and off) Resp Denies chest congestion, Denies cough, Reports dyspnea on exertion (mild, on and off) and Denies wheezing GI Denies abdominal pain, Reports bloating (frequent), Denies constipation, Denies dysphagia, Denies heartburn, Denies diarrhea, Denies nausea, Denies odynophagia and Denies vomiting Denies hematuria, Denies difficulty urinating, Denies dysuria, Denies urinary frequency and Denies urinary urgency Musc Denies back pain, Denies arthralgias, Denies joint swelling, Denies muscle weakness and Denies neck pain Skin/Breast Denies change in pigmentation, Denies lesions, Denies rash and Denies unusual bruising Neuro Denies dizziness, Denies headache(s), Denies paresthesias and Denies weakness Endo Reports fatigue and Denies palpitations Aller/Immun Denies itchy eyes and Denies wheezing Physical exam (Primary Care) Vital Signs: Last Vital Signs Pulse 87 02/19/25 08:40 BP 130/80 02/19/25 08:40 Pulse Ox 96 02/19/25 08:40 Oxygen Delivery Method Room Air 02/19/25 08:40 BMI result Body Mass Index 36.0 Tobacco/Smoking Status: Tobacco use Status Tobacco use date assessed 02/19/25 02/19/25 08:43 Patient Tobacco Use Status Former Tobacco user 02/19/25 08:43 Tobacco use type Cigarette 02/19/25 08:43 e-Cigarette/Vaping Use Never Used 02/19/25 08:43 PHQ-9: PHQ-9 Score PHQ-9: Total score 0 02/19/25 08:43 Depression Screening Interpretation: Negative Thrive Assessment: Date of Thrive Assessment Date Thrive assessed 02/19/25 02/19/25 08:43 Currently or been in a relationship where the following occur: No concerns reported Const General: no acute distress, alert and awake Orientation/consciousness: patient oriented x3 HENMT Head: Yes normocephalic and Yes atraumatic Ears: external ears normal, TM's normal bilaterally and EAC's normal General nose exam: No nasal discharge present Face and sinus: Yes normal facial exam and Yes sinuses nontender Teeth and gingiva: dentition normal Throat: Yes posterior oropharynx normal and Yes tonsils normal (no TP congestion) Eyes Eyelids: Yes eyelids normal Conjunctivae: conjunctivae normal Pupils: Equal, round and reactive pupils present EOM: EOMs intact bilaterally Neck Neck: Yes no lymphadenopathy and Yes supple Thyroid: Thyroid normal Resp Auscultation: clear to auscultation bilaterally, no rales and no wheezes Cardio Rate: regular rate Rhythm: regular rhythm Heart sounds: no murmurs GI Palpation (GI): Soft to palpation, nontender and No hepatosplenomegaly present Auscultation: normal bowel sounds General: Yes no CVA tenderness Back/Spine/Pelvis Back: no CVA tenderness Thoracic/Lumbar Spine: thoracic and lumbar spine normal to inspection Skin Lesions: no lesions Rashes: no rashes Neuro General: patient oriented x3, moves all extremities, no focal motor deficits and CN's II-XI intact bilaterally Cranial nerves: Yes Equal, round and reactive pupils present Cognition (Neuro): normal cognition Gait exam (Neuro): Normal gait present Extrem General: Yes no clubbing, cyanosis or edema Coding Level of Care Code Est Pt Prev Care 40-64y(84891) Diagnoses Annual physical exam Z00.00 Obstructive sleep apnea G47.33 Essential hypertension I10 Mixed hyperlipidemia E78.2 Impaired fasting glucose R73.01 GERD without esophagitis K21.9 Vitamin D deficiency E55.9 Benign prostatic hyperplasia, unspecified whether lower urinary tract symptoms present N40.0 Lower urinary tract symptom presence: unspecified whether lower urinary tract symptoms present Insomnia, unspecified type G47.00 Insomnia type: unspecified Obesity (BMI 30-39.9) E66.9 Additional Codes PHQ-9 - 64363 - PHQ-9 Billing: Yes ([id number]) Assessment & Plan Assessment & Plan (1) Annual physical exam: Code(s): Z00.00 - Encounter for general adult medical examination without abnormal findings Category: Medical Plan: Check labs to complete his annual exam He had his last screening colonoscopy done with Dr. Gatica earlier this year on 07/28/2024 - (+) tubular adenoma and he was recommended for repeat colonoscopy in 2 to 3 years (~2026 or 2027) (2) Obstructive sleep apnea: Comment: compliant on cpap Code(s): G47.33 - Obstructive sleep apnea (adult) (pediatric) Category: Medical Plan: He was diagnosed with SHANT a few months ago and started on his CPAP device, currently at 13 cm water pressure Patient states that he tries to use his CPAP device when sleeping at night but he has been having trouble falling asleep and staying asleep for a while now and states that he sometimes just falls asleep out of pure exhaustion Follow up with sleep medicine as scheduled (3) Essential hypertension: Code(s): I10 - Essential (primary) hypertension Category: Medical Plan: Reinforced low sodium diet - goal is systolic BP of 120 mm or less Continue Losartan 100 mg QD, Amlodipine 5 mg QD and Hydralazine 50 mg BID Patient is again reminded to continue monitoring his blood pressure regularly (4) Mixed hyperlipidemia: Code(s): E78.2 - Mixed hyperlipidemia Category: Medical Plan: Check labs, including his repeat fasting lipids, ANNY for follow up Reinforced low cholesterol diet He was recently started on Omegar 3 supplements by Sleep Medicine as well but is again advised that the only effective way to boost his HDL cholesterol is through regular exercise and physical activity Will recheck his labs and fasting lipids again in 6 months for follow up (5) Impaired fasting glucose: Code(s): R73.01 - Impaired fasting glucose Category: Medical Plan: Reinforced low calorie/low carb diet; exercise as tolerated His FBS was normal at 85 mg/dL when last checked in May 2024; his HgbA1c was normal at 5.3% when checked previously (6) GERD without esophagitis: Code(s): K21.9 - Gastro-esophageal reflux disease without esophagitis Category: Medical Plan: Dietary restrictions reinforced Continue Omeprazole 20 mg QD PRN (7) Vitamin D deficiency: Code(s): E55.9 - Vitamin D deficiency, unspecified Category: Medical Plan: Continue Vitamin D3 2000 units QD (8) BPH (benign prostatic hyperplasia): Code(s): N40.0 - Benign prostatic hyperplasia without lower urinary tract symptoms Category: Medical Qualifiers: Lower urinary tract symptom presence: unspecified whether lower urinary tract symptoms present Qualified Code(s): N40.0 - Benign prostatic hyperplasia without lower urinary tract symptoms Plan: S/P prostate surgery in 08/2016 Continue Tamsulosin 0.4 mg Q HS - Rx refilled Follow up with urology as scheduled (9) Insomnia: Code(s): G47.00 - Insomnia, unspecified Category: Medical Qualifiers: Insomnia type: unspecified Qualified Code(s): G47.00 - Insomnia, unspecified Plan: Sleep hygiene discussed Will start him on a trial of Trazodone 50 mg Q HS PRN (10) Obesity (BMI 30-39.9): Code(s): E66.9 - Obesity, unspecified Category: Medical Plan: Reinforced diet/exercise as tolerated/lose weight Per request, will refer him to weight management to help him lose some weight Plan Follow up in 6 months Orders: Orders Prostate Specific Antigen Today N40.0 - Benign prostatic hyperplasia without lower urinary tract symptoms Lipid Panel 6 Months E78.00 - Pure hypercholesterolemia, unspecified Hemoglobin A1c Today R73.01 - Impaired fasting glucose TSH reflex Free T4 Today E78.00 - Pure hypercholesterolemia, unspecified Vitamin D 25-OH Total Today E55.9 - Vitamin D deficiency, unspecified Comprehensive [place]. Panel Fast 6 Months E78.00 - Pure hypercholesterolemia, unspecified Referrals Medical Weight Management Referral E66.9 - Obesity, unspecified Medications: New trazodone 50 mg PO BEDTIME PRN 90 tabs 1RF sleep 90 days Changed From tamsulosin 0.4 mg PO DAILY 90 caps 1RF To tamsulosin 0.4 mg PO DAILY 90 caps 1RF 90 days
[2025-02-19 08:40] VITALS: BP 130/80; PULSE 87; O2SAT 96; BMI 36.0
--- OUTSIDE RECORDS SUMMARY | 2025-02-19 08:47 | XMS_ITS | Patient Health Record ---
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 Name Role Phone Terrence MONCADA, [place] Primary Care Provider UnaRebeca Doyle Unavailable [phone] Reason For Referral No Information Medications Medication SIG (Take, Route, Frequency, Duration) Notes Start Date End Date Status Neurontin 300 MG 1 capsule bid; Durat ion: 90 days Active Losartan Potassium 100 MG 1 tablet Orall y Once a day; Duration: 30 day(s) Active Flomax 0.4 MG 1 capsule Orally Onc e a day; Duration: 30 day(s) Active Gabapentin 300 MG TAKE 1 CAPSULE BY [facility] AT BEDTIME Active Social History Tobacco Use: [...] Date Coverage End Date [employer] [id number] [place]iano corona, [place]ERR[place] [id number] [id number] Isma Zarate Self - patient is the insured Medical (General) History Surgical History Surgery Date(Month/Year) Tooth extraction 2018
== END 2025-02-19 09:40 | disposition home or self-care (01) ==
LOC: HO.HMCH 08:37
PROVIDERS: PCP Internal Medicine; Visit Provider Internal Medicine
DX: Z00.00 Encounter for general adult medical examination without abnormal findings (principal); G47.33 Obstructive sleep apnea (adult) (pediatric); E66.9 Obesity, unspecified; Z68.36 Body mass index [BMI] 36.0-36.9, adult; E55.9 Vitamin D deficiency, unspecified; I10 Essential (primary) hypertension; E78.2 Mixed hyperlipidemia; R73.01 Impaired fasting glucose; K21.9 Gastro-esophageal reflux disease without esophagitis; N40.0 Benign prostatic hyperplasia without lower urinary tract symptoms; G47.00 Insomnia, unspecified

== ENCOUNTER → 2025-02-19 08:36 | Outpatient (BNVA) | payer OTHER, SELFPAY | PROVIDERS: PCP Internal Medicine; Visit Provider Internal Medicine | DX: Z00.00 Encounter for general adult medical examination without abnormal findings (principal); G47.33 Obstructive sleep apnea (adult) (pediatric); I10 Essential (primary) hypertension; E78.2 Mixed hyperlipidemia; R73.01 Impaired fasting glucose; K21.9 Gastro-esophageal reflux disease without esophagitis; E55.9 Vitamin D deficiency, unspecified; N40.0 Benign prostatic hyperplasia without lower urinary tract symptoms; G47.00 Insomnia, unspecified; E66.9 Obesity, unspecified; Z99.89 Dependence on other enabling machines and devices; Z68.36 Body mass index [BMI] 36.0-36.9, adult | CPT/HCPCS: 96127 ==

== ENCOUNTER 2025-05-15 07:31 | Outpatient (REF) | payer OTHER, SELFPAY ==
--- NOTE | ~2025-05-15 | US_ITS ---
EXAMINATION: US SCROTUM WITH DOPPLER COMPLETE, US SCROTUM HISTORY: N50.819 - Testicular pain, lump left testicle. COMPARISON: There are no prior studies available for comparison. FINDINGS: Real-time grayscale ultrasound imaging of the scrotum was performed. RIGHT TESTICLE: The right testis measures 4.7 x 2.7 x 3.4 cm and demonstrates slightly heterogeneous echotexture. No focal lesion or masses are seen. The right testis demonstrates normal color Doppler flow. RIGHT EPIDIDYMIS: The head and body of the right epididymis are normal. The tail of the epididymis is prominent and heterogeneous in echo texture with hyperechoic foci. LEFT TESTICLE: The left testis measures 5.2 x 2.7 x 4 cm and demonstrates normal lightly heterogeneous echotexture. No focal lesion or masses are seen. The left testis demonstrates normal color Doppler flow. LEFT EPIDIDYMIS: 1.9 x 1.7 x 1.7 cm left epididymal head cyst. VARICOCELE: None. HYDROCELE: There is a small right hydrocele. There is no left hydrocele. OTHER COMMENTS: None. US/US scrotum doppler IMPRESSION: Left scrotal palpable abnormality corresponds to a 1.9 x 1.7 x 1.7 cm simple left epididymal head cyst. Slightly heterogeneous testicular echotexture. Question mild orchitis. No focal testicular lesion. Prominent right epididymal tail with echogenic foci, question changes from old infection/epididymitis. Small right hydrocele. Recommend urology consultation and follow-up ultrasound. Electronically signed by: Tamie Ramirez MD 05/15/2025 11:29 AM EDT
--- NOTE | ~2025-05-15 | US_ITS ---
EXAMINATION: US SCROTUM WITH DOPPLER COMPLETE, US SCROTUM HISTORY: N50.819 - Testicular pain, lump left testicle. COMPARISON: There are no prior studies available for comparison. FINDINGS: Real-time grayscale ultrasound imaging of the scrotum was performed. RIGHT TESTICLE: The right testis measures 4.7 x 2.7 x 3.4 cm and demonstrates slightly heterogeneous echotexture. No focal lesion or masses are seen. The right testis demonstrates normal color Doppler flow. RIGHT EPIDIDYMIS: The head and body of the right epididymis are normal. The tail of the epididymis is prominent and heterogeneous in echo texture with hyperechoic foci. LEFT TESTICLE: The left testis measures 5.2 x 2.7 x 4 cm and demonstrates normal lightly heterogeneous echotexture. No focal lesion or masses are seen. The left testis demonstrates normal color Doppler flow. LEFT EPIDIDYMIS: 1.9 x 1.7 x 1.7 cm left epididymal head cyst. VARICOCELE: None. HYDROCELE: There is a small right hydrocele. There is no left hydrocele. OTHER COMMENTS: None. US/US scrotum IMPRESSION: Left scrotal palpable abnormality corresponds to a 1.9 x 1.7 x 1.7 cm simple left epididymal head cyst. Slightly heterogeneous testicular echotexture. Question mild orchitis. No focal testicular lesion. Prominent right epididymal tail with echogenic foci, question changes from old infection/epididymitis. Small right hydrocele. Recommend urology consultation and follow-up ultrasound. Electronically signed by: Tamie Ramirez MD 05/15/2025 11:29 AM EDT
--- OUTSIDE RECORDS SUMMARY | 2025-05-15 07:34 | XMS_ITS | Data Portability ---
Author Organization [place] [facility], Allergy Address [address] [address] Care Team Providers Care Ic Designer Gate Arrays Name Role Phone NILAY KENNEDY Primary Care [...] that Dr. William is in the office. [email or web address] Not available 12/21/2023 10:29:16 02/08/2024 02/08/2024 Canal polyp resolved. Asymmetric hearing loss. Differential reviewed with patient to include asymmetric noise exposure versus retrocochlear pathology to include acoustic neuroma versus others. Reviewed utility of and rationale for MRI of IACs. 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 Recommend hearing protection. For the tinnitus unfortunately [...] issues that develop. 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 Physical exam reveals no cholesteatoma only mild squamous debris collection in his irregularly contoured canal. It does not appear that he is at risk for rapid reaccumulation of squamous debris within this canal, but I would recommend reevaluation in 1 year to assess for squamous debris accumulation. Physical examination revealed signs of excessive Q-tip use today. Today we spent some time talking about the fact that cerumen is a natural antibiotic, antifungal, purchasing engineer, and moisturizer of the delicate external auditory canal skin. The use of Q-tips strips away this natural protection and makes the ear canal skin more likely to become itchy, irritated or become infected. There is also the risk of trauma to the tympanic membranes as well. We discussed proper aural hygiene techniques to maintain the health of the external ears. [email or web address] Not available 02/12/2025 13:23:59 Plan of Treatment Reminders Order Date Submit Date Provider Last Modified By Organization Details Last Modified Time Details Appointments Establish ed 10 2025 09:50A M ED WILLIAM MD Not available Not available Not available Lab None recorded. Referral None recorded. Procedures None recorded. Surgeries None recorded. Imaging None recorded. Medication Orders ciproflox acin 0.3 %-dexamet hasone 0.1 % ear drops,echo pension 2023 024 sara 32 [facility]/Pharmacy #[id number], [address], [place], [address], 02/08/2024 11:45:24 TobraDex 0.3 %-0.1 % eye drops,echo pension 2023 025 [facility]/Pharmacy #[id number], [address], [place], [address], 08/15/2024 08:57:45 Patient TargetsNo targets recorded. Patient InstructionsNo instructions recorded. Reason for Referral None Reported. Results Created Date Observation Date Name Description Value Unit Range Abnormal Flag Note LastModifiedBy Organization Detail LastModifiedTime 02/11/20 24 audio gram No observ ation record ed. [email or web address] Not Available 01/21 16:17:16 08/15/19 audio gram No observ ation record ed. [email or web address] Not Available 2024 10:18:04 Result Notes None recorded. 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 Active 2023 Jammie barlow [place] - [facility] 4 10:56:52 Otorrhea of left ear 01544017890 64138 Active 2023 OSCAR LO MD [address] [facility] [place], [place], [address] , [place] - [facility] 4 11:01:34 Polyp of left external ear canal 74446759447 72756 Completed 202302/12/2025 ED WILLIAM MD [address] [facility] [place], [place], [address] , [place] - [facility] 5 13:18:51 Cholestea marissa of external ear 51971832 Active 2023 ED WILLIAM MD [address], [place], [address] , [place] - [facility] 4 10:54:03 Bilateral tinnitus 50996754886 02 Active [address], [place], [address] , [place] - [facility] 4 12:27:34 Sensorine ural hearing loss in left ear 72294969094 109 Active 2023 CARTER SHAW AUD [address] [facility],[place] [address], [facility] [place], [address] , [facility] - [facility] 4 12:27:52 Obstructi ve sleep apnea syndrome 67596484 Active 2024 ED WILLIAM MD 100 [facility],[place] [address], [facility] [place], [address] , [facility] - [facility] 5 13:22:33 Problem Notes None recorded. Procedures Surgical History Date Name Laterality Status Provider Name and Address Organization Details Recorded Time 5 Debridement of Ear canal left completed ED WILLIAM MD 100 [facility],[place] [address], [place], [address], [facility] - [facility] 02/12/2025 13:20:39 5 Air & Speech Audio with Tymps - 47390, 53197 & 81450 completed DA ARREOLA AUD [address] [facility],[place] [address], [place], [address], [facility] - [facility] 08/15/2024 09:15:17 4 Comp Audio with Tymps - 49006 & 58704 completed THO BUSBY 100 [facility],[place] [address], [place], [address], [facility] - [facility] 02/08/2024 12:27:18 4 Debridement of Ear canal left completed ED WILLIAM MD 100 [facility],[place] [address], [place], [address], [facility] - [facility] 01/08/2024 10:56:54 Imaging Results None recorded. Procedure Notes None recorded. Medical Equipment None Reported. Allergies No known drug allergies Medications Name Sig Start Date Stop Date Status Note LastModified by Organization Details LastModified Time doxycycline hyclate 100 mg capsule TAKE 1 CAPSULE TWICE A DAY BY ORAL ROUTE DIRECTED FOR 10 DAYS, FOR LEFT EAR INFECTION . 12/06 completed Not Available Not Available Not Available trazodone 50 mg tablet TAKE 1 TABLET BY MOUTH AT BEDTIME NEEDED FOR SLEEP active Not Available Not Available No t Available ofloxacin 0.3 % eye drops INSTILL [...] mg capsule TAKE 1 CAPSULE BY MOUTH DAILY FOR 90 DAYS active Not Available Not [...] 1 TABLET BY MOUTH TWICE A DAY active Not Available Not Available No t Available cefuroxime axetil 500 mg tablet TAKE 1 TABLET BY MOUTH 2 TIMES A DAY FOR 10 DAYS 12/06 completed Not Available Not Available Not Available losartan 100 mg tablet TAKE 1 TABLET BY MOUTH DAILY active Not Available Not Available No t [...] completed Not Available Not Available Not Available Vitamin D3 50 mcg (2,000 unit) tablet TAKE 1 TABLET BY MOUTH EVERY DAY FOR LOW VITAMIN D LEVELS AT BEDTIME active Not Available Not Available No t Available GaviLyte-G 236 gram-22.74 gram-6.74 gram-5.86 gram oral solution PLEASE SEE ATTACHED FOR DETAILED DIRECTION S 08/15 completed Not Available Not Available Not Available Vitals Date Recorded Body height Body mass index (BMI) Body weight Provider Name and Address Organization Details Last Updated DateTime 08/15/2024 177.8 cm 33.7 kg/m2 521739.[address] [place] [facility] 08/15/2024 09:53:35 Date Recorded Body height Body mass index (BMI) Body weight Provider Name and Address Organization Details Last Updated DateTime 12/21/2023 177.8 cm 33 kg/m2 553869.[address] [place] [facility] 12/21/2023 09:48:45 Date Recorded Body height Body mass index (BMI) Body weight Provider Name and Address Organization Details Last Updated DateTime 01/08/2024 177.8 cm 33 kg/m2 036922.[address] [place] [facility] 01/08/2024 10:05:44 Date Recorded Body height Body mass index (BMI) Body weight Provider Name and Address Organization Details Last Updated DateTime 02/12/2025 177.8 cm 34.4 kg/m2 544100.17 g SARAY PEGGY [place] - [facility] 02/12/2025 13:11:35 Social History None recorded. Functional Status Question Answer Note LastModified by Organizat ion Details LastModified Time Do you or have you ever used any other forms of tobacco or nicotine? No [email or web address] Information not available 12/07/2023 What is your level of alcohol consumption? Occasional [email or web address] Information not available 12/07/2023 Mental Status None recorded. Family History Nothing Reported. Medical History Condition Response Hypertension Y Immunizations Vaccine Type Date Status Note Provider Nam e and Address Organization Details Recorded Time influenza nasal, unspecified formulation [address] [place] [facility] 12/07/2023 10:55:15 Past Encounters Encounter ID Performer Location Encounter Start Date Encounter Closed Date Diagnosis/Indication Diagnosis SNOMED-CT Code Diagnosis ICD10 Code Diagnosis IMO Codes Diagnosis Note [id number] OSCAR LO MD [facility] [address] [address] 12/07/2023 10:15:49 12/07/2023 11:07:26 Otorrhea of left ear 0501620473 885098 H92.12 Left-sided otorrhea has been present for [...] dry ear precaution s. Follow-up with physician bilingual sales assistant for reassessme nt in approximat yehuda 2 weeks. At that time considerat ion could be given to adjustment of medication s, further debridemen t, removal of polyp. Eventually when the infection is under control investigat ion of hearing testing will be helpful Polyp of l eft external ear canal 3901814377 225329 H61.892 [id number] KIERAN REYNOLDS PA-C [facility] [address] [address] 12/21/2023 09:35:38 12/21/2023 10:20:20 Otorrhea of left ear 7529052061 699498 H92.12 Polyp of l eft external ear canal 9681658171 255697 H61.892 [id number] ED WILLIAM MD [facility] [address] [address] 01/08/2024 09:52:47 01/08/2024 10:56:20 Cholesteatoma of external ear 45183240 H60.42 Patient had a large deeply impacted [...] Polyp of l eft external ear canal 1159905754 048932 H61.892 The inflammato ry polyp appears smaller than previous descriptio ns, hopefully this will resolve with treatment with the above-ment ioned regimen. [id number] CHADWICK VARGAS PA-C [facility] [address] [address] 02/08/2024 11:32:35 02/08/2024 12:39:17 Bilateral tinnitus 2820314934 102 H93.13 Sensorineu ral hearing loss in left ear 7657116853 9109 H90.42 Audiologic al evaluation results: Right ear: Normal hearing with excellent word recognitio n. Left ear: Normal sloping to a mild sensorineu ral hearing loss with excellent word recognitio n. Tympanomet ry: Right Ear:Type A Left Ear:Type A [id number] CHADWICK VARGAS PA-C [facility] [address] [address] 08/15/2024 08:51:11 08/15/2024 10:04:38 Bilateral tinnitus 8569497247 102 H93.13 Audiologic al evaluation results: Right ear:Normal hearing. Left ear:Normal hearing. Tympanomet ry:Right Ear: Type ALeft Ear: Type A Cholesteat kandace of external ear 73606262 H60.42 Polyp of l eft external ear canal 4829169427 704971 H61.892 [id number] ED WILLIAM MD [facility] [address] [address] 02/12/2025 13:01:07 02/12/2025 13:24:55 Cholesteatoma of external ear 13516749 H60.42 Obstructiv e sleep apnea syndrome 21705533 G47.33 [id number] Patient recently diagnosed with obstructiv e sleep apnea. His sleep medicine specialist wanted him to have an otolaryngo logy evaluation of his nose and throat. We will set him up for visit with Dr. Lo for further evaluation . Health Concerns Section Related Observation LastModified by Organization Detai ls LastModified Time None Recorded Concern Status LastModified by Organization Details LastModified Time None Recorded Advance Directives Directive None Recorded Payers Insurance Date Sequence Insurance Name Policy Number Policy Khan Covered Member ID Khan Member ID Guarantor Name 02/12/2025 1 [employer] (PPO) Oliverio Elliot [id number] Oliverio Elliot 02/12/2025 1 [employer] Oliverio Elliot [id number] Oliverio Elliot 02/12/2025 1 [employer] (PPO) [id number] Oliverio Elliot [id number] Oliverio Elliot 04/07/2025 1 [employer] (PPO) [id number] Oliverio W Elliot [id number] Oliverio Elliot 02/12/2025 2 [employer] [id number] Oliverio Elliot [id number] Oliverio Elliot 02/12/2025 1 [employer] Oliverio Elliot [id number] Oliverio Elliot 02/12/2025 1 [employer] - C PPO (PPO) [id number] Oliverio W Elliot [id number] Oliverio Elliot Notes Date Note Type Note Provider Name and Address Organization Details Recorded Time 12/21/2023 text/html ROS as noted in the [facility] 48-year-old male presents for follow-up of left sided otorrhea and ear canal polyp. He has been using TobraDex. No further otorrhea. Denies otalgia. Hearing continues to feel decreased on the left. Denies prior otologic surgeries or history of chronic ear infections. OSCAR LO MD [address] [place] [address], [address], [facility] - [facility] 12/21/2023 18:05:17 01/08/2024 text/html ROS as noted in the [facility] 48-year-old male presents for follow-up of left [...] New onset tinnitus ED WILLIAM MD 100 [facility],[address], [address], [facility] 01/08/2024 11:00:04 02/08/2024 text/html ROS as noted in the [facility] 49 year old male presents for follow [...] in the left greater than right ear. 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 XOCHITL NORTON MD 100 [facility],[address], [address], [facility] 02/09/2024 05:12:33 08/15/2024 text/html ROS as noted in the [facility] 49 year old male presents for re-evaluation [...] tinnitus has not changed. SHERIF FRAZIER MD 100 [facility],[address], [address], [facility] 08/15/2024 12:41:15 02/12/2025 text/html ROS as noted in the [facility] 50 year old male presents for re-evaluation of the ears. Over the summer 2023, he was found to have squamous epithelial debris in the left medial canal and surface of the tympanic membrane consistent with an infected canal cholesteatoma which was debrided under the binocular microscope.follow-up visit in July 2024 showed no signs of recurrence of the debris collection. He denies otalgia, otorrhea, and reports his tinnitus has not changed. In addition, patient diagnosed with obstructive sleep apnea and using CPAP. He reports that his sleep medicine specialist wanted an ENT evaluation to check his nose and throat. ED WILLIAM MD [address] [place] [address], [address], [facility] - [facility] 02/12/2025 13:24:05
[2025-05-15 07:49] LABS: MANUAL DIFF FLAG NO
[2025-05-15 08:33] LABS: Hematocrit 44.0 % (42.0-52.0); Hemoglobin 14.4 g/dl (14.0-18.0); Imm Gran Abs Auto 0.03 X10*3/uL (0.00-0.03); Imm Gran Pct Auto 0.5 % (0.0-0.4); Lymphocytes Absolute Auto 1.8 X10*3/uL (1.2-4.9); Mean Corpuscular HGB Conc 32.7 g/dl (31.0-36.0); Mean Corpuscular Hemoglobin 28.9 pg (27.0-33.0); Mean Corpuscular Volume 88.2 fL (80.0-98.0); NRBC Abs Auto 0.000 X10*3/uL (0.0-0.012); NRBC Pct Auto 0.0 /100WBC (0.0-0.2); Platelet Count 242 X10*3/uL (160-400); Red Blood Count 4.99 X10*6/uL (4.60-5.80); White Blood Count 6.0 X10*3/uL (4.8-10.8)
[2025-05-15 09:13] LABS: Alanine Aminotransferase 43 U/L (0-40); Albumin Level 4.6 g/dL (3.5-5.0); Alkaline Phosphatase 86 U/L (39-117); Anion Gap 10 (12-20); Aspartate Amino Transferase 25 U/L (5-37); Blood Urea Nitrogen 16 mg/dL (9-16); Calcium 9.1 mg/dL (8.4-10.2); Carbon Dioxide 27 mmol/L (22-29); Chloride 108 mmol/L (96-108); Cholesterol 168 mg/dL (<200); Estimated Glomerular Filt Rate > 60; HDL Cholesterol 38 mg/dL (>40); Potassium 4.1 mmol/L (3.3-5.1); Sodium 141 mmol/L (135-145); Total Protein 6.8 g/dL (6.5-8.0); Triglycerides 107 mg/dL (<150)
[2025-05-15 09:24] LABS: Prostate Specific Antigen 0.79 ng/mL (<0.05-4.0)
[2025-05-15 09:34] LABS: Appearance Urine Cloudy; Glucose Urine UA Negative (Negative); PH 5.5 (5.0-9.0); Specific Gravity - Urine 1.020 (1.005-1.025)
== END 2025-05-15 07:32 | disposition home or self-care (01) ==
LOC: HO.LAB 07:31
PROVIDERS: PCP Internal Medicine; Visit Provider Internal Medicine
DX: Z00.00 Encounter for general adult medical examination without abnormal findings (principal); E55.9 Vitamin D deficiency, unspecified; E78.00 Pure hypercholesterolemia, unspecified; N40.0 Benign prostatic hyperplasia without lower urinary tract symptoms; R73.01 Impaired fasting glucose; D64.9 Anemia, unspecified; R30.0 Dysuria; N50.819 Testicular pain, unspecified; M54.9 Dorsalgia, unspecified; Z12.5 Encounter for screening for malignant neoplasm of prostate
CPT/HCPCS: 36415; 76870; 80053; 80061; 81003; 82306; 83036; 84153; 84443; 85025; 93975

== ENCOUNTER 2025-05-15 08:24 | Outpatient (AMB) | payer OTHER, SELFPAY ==
--- NOTE | 2025-05-15 08:40 | MHC.PC.OV ---
Vital Signs 05/15/25 08:42 Height 5 ft 11 in Weight 259 lb 6 oz BMI 36.2 BP 152/60 H Blood Pressure Location Lt brachial Position Sitting Pulse 88 Pulse Source Pulse Oximeter Temp 97.3 F Temp Source Temporal Artery Scan Pulse Oximetry (%) 98 Oxygen Delivery Method Room Air Intake Visit Reasons: pain and swelling to left testicle Intake Note: Patient is here to follow up on Pain and swelling of left testicle. Hosiery Mender Required: No Office Associate: Not Required per policy Accompanied by: Self / Same As Patient Allergies No Known Allergies Allergy (Verified 05/15/25 08:42) Medication List - Last Reconciled 05/15/25 by Sven Delcid MD amlodipine 5 mg PO DAILY 90 days aspirin (Adult Low Dose Aspirin) 81 mg PO DAILY cholecalciferol (vitamin D3) 50 mcg PO DAILY 3 months MDD 50mcg hydralazine 50 mg PO BID 90 days ibuprofen 800 mg PO Q8H PRN 14 days losartan 100 mg PO DAILY tamsulosin 0.4 mg PO DAILY 90 days trazodone 50 mg PO BEDTIME PRN 90 days Tobacco use date assessed: 05/15/25 Dental Screening Dental Screen Date: 02/19/25 HPI HPI Comments History of Present Illness Details The patient is a 50-year-old male presenting with a testicular discomfort. He noticed the discomfort on his left testicle approximately three days ago, accompanied by soreness. There is no associated pain upon palpation, and he is concerned due to a family history of cancer. The patient reports ongoing back pain, which he attributes to age. He denies any recent fever, chills, or other systemic symptoms. His family history is significant for cancer, with his sister having from metastatic cancer at age 35 and an aunt with lung cancer. He has ceased smoking and reports no recent unprotected sexual encounters. [facility] Medical History (Updated 05/15/25 @ 08:54 by Sven Delcid MD) Vitamin D deficiency Insomnia Obstructive sleep apnea Impaired fasting glucose Mixed hyperlipidemia GERD without esophagitis Obesity (BMI 30-39.9) BPH (benign prostatic hyperplasia) Dyslipidemia Essential hypertension Surgical History H/O colonoscopy History of prostate surgery Family History Father Diabetes Hypertension Mother Hypertension Family/Other Asthma Social History Housing: House Alcohol intake: current Alcohol intake frequency: holidays/special occasions only Alcohol type: beer Patient Tobacco Use Status: Former Tobacco user Tobacco use type: Cigarette e-Cigarette/Vaping Use: Never Used Second Hand Smoke Exposure: Yes service: No Current occupational status: employed Current occupational exposures/hazards: No Cognitive needs: No Hearing needs: No Vision needs: No Questionnaire Thrive Questionnaire Date Thrive assessed: 02/19/25 I am a: Patient What is your living situation today?: I have a steady place to live Within the past 12 months, did the food you bought not last and you didn't have the money to get more?: Never true Within the past 12 months, did you worry whether your food would run out before you got money to buy more?: Never true Do you have trouble paying for medicines?: No Do you have trouble getting transportation to medical appointments?: No Do you have trouble paying your heating and electricity bill?: No Do you have trouble taking care of your child, family member or friend?: No Do you have trouble with day-to-day activities such as bathing, preparing meals, shopping, managing finances, etc.?: No Are you currently unemployed and looking for a job?: No Are you interested in more education?: No Please select the resources that you would like help with: None Currently or been in a relationship where the following occur: No concerns reported THRIVE Score: 0 ARLEEN-7 AMB Questionnaire ARLEEN-7 Date ARLEEN - 7 assessed: 02/19/25 Source: Developed by Drs. Robert Stephenson, Noelle Hirsch, Luan Collazo and colleagues, with an educational vanessa from [employer]. Review of Systems Const Details: Not done. Physical exam (Primary Care) Vital Signs: Last Vital Signs Temp 97.3 F 05/15/25 08:42 Pulse 88 05/15/25 08:42 BP 152/60 H 05/15/25 08:42 Pulse Ox 98 05/15/25 08:42 Oxygen Delivery Method Room Air 05/15/25 08:42 BMI result Body Mass Index 36.2 Tobacco/Smoking Status: Tobacco use Status Tobacco use date assessed 05/15/25 05/15/25 08:46 Patient Tobacco Use Status Former Tobacco user 05/15/25 08:46 Tobacco use type Cigarette 05/15/25 08:46 e-Cigarette/Vaping Use Never Used 05/15/25 08:46 Thrive Assessment: Date of Thrive Assessment Date Thrive assessed 02/19/25 05/15/25 08:46 Currently or been in a relationship where the following occur: No concerns reported Const Other: Pertinent findings are in BOLD GENERAL APPEARANCE NAD, activity normal for age, well developed/ well nourished, no cyanosis, pallor, or diaphoresis. EYES lids/conjunctiva normal. EARS/NOSE/THROAT Mucous membranes moist, nares normal, lips/teeth normal uvula midline without oral pharyngeal erythema, exudate or swelling TMs normal bilaterally. No lymphangitis/lymphedema. HEAD/NECK normocephalic atraumatic, no facial trauma, neck is supple. RESPIRATORY respiratory effort normal, speaks in full sentences, no tripod position, no accessory muscle use. Lungs clear to auscultation without rhonchi, wheezes, rales CARDIAC Regular rate and rhythm, no edema. ABDOMINAL Soft, ND/NT. No evidence of fluid wave. No pulsatile masses on exam, rebound tenderness, Ward sign or pain over Mcburney's point. MUSCLES/EXTREMITIES No abnormal range of motion, no swelling. SKIN Warm, pink and dry. No rashes, dermatoses, petechiae or lesions. NEUROLOGICAL Speech is clear and appropriate. Normal level of consciousness. Gait and coordination are normal. 5/5 strength in all extremities. PSYCH Normal mood and affect. Judgement/competence is appropriate Genital: mild discomfort upon palpation of left testiule. No mass palpated. Coding Level of Care Code Est Pt Level 3 (20449) Diagnoses Testicular discomfort N50.819 Time Spent (min) 20 Assessment & Plan Assessment & Plan (1) Testicular discomfort: Code(s): N50.819 - Testicular pain, unspecified Category: Medical Plan: Plan for urgent scrotal US with doppler. UA done today with no findings. Urology referral pending scrotal US findings. Plan I discussed with the patient the plan to perform an urgent ultrasound to evaluate his testicular discomfort, emphasizing the importance of early detection given his family history of cancer. We agreed that follow-up would depend on the ultrasound findings, with a potential referral to urology if necessary. Orders: Orders US scrotum doppler Today N50.819 - Testicular pain, unspecified
[2025-05-15 08:42] VITALS: BP 152/60; PULSE 88; TEMP 36.3; O2SAT 98; BMI 36.2
== END 2025-05-15 09:01 | disposition home or self-care (01) ==
LOC: HO.HMCH 08:25
PROVIDERS: PCP Internal Medicine; Visit Provider Internal Medicine
DX: N50.819 Testicular pain, unspecified (principal)

== ENCOUNTER 2025-05-15 09:17 | Outpatient (REF) | payer OTHER, SELFPAY ==
--- OUTSIDE RECORDS SUMMARY | 2025-05-15 10:06 | XMS_ITS | Patient Health Record ---
Author Organization [facility] Address [address] [place] [address] Care Team Providers Care Rail Setter Name Role Phone Terrence MONCADA, [place] Primary Care Provider UnaRebeca Doyle Unavailable [phone] Reason For Referral No Information Medications Medication [...] 300 MG TAKE 1 CAPSULE BY MO [facility] AT BEDTIME Active Social History Tobacco [...] Date Coverage End Date Cigna [address] Victoriano corona, JERRY [address] [phone] [id number] Isma Zarate Self - patient is the insured Medical (General) History Surgical History Surgery Date(Month/Year) Tooth extraction 2018
== END 2025-05-15 09:18 | disposition home or self-care (01) ==
LOC: HO.US 09:17
PROVIDERS: PCP Internal Medicine; Visit Provider Internal Medicine
DX: Z13.89 Encounter for screening for other disorder (principal)

== ENCOUNTER → 2025-05-15 10:19 | Outpatient (BNV) | payer OTHER, SELFPAY | PROVIDERS: PCP Internal Medicine; Visit Provider Radiology Diagnostic Radiology | DX: N50.3 Cyst of epididymis (principal); N43.3 Hydrocele, unspecified | CPT/HCPCS: 76870; 93975 ==

== ENCOUNTER 2025-05-22 09:30 | Outpatient (AMB) | payer OTHER, SELFPAY ==
--- NOTE | 2025-05-22 09:55 | AM.OFFVISNUR ---
Intake Visit Reasons: injection Allergies No Known Allergies Allergy (Verified 05/15/25 08:42) Office Meds ceftriaxone 500 mg solution for injection Performing Provider: Sven Delcid MD [facility] Administered by: Brianne Blackwell LPN on 05/22/25 09:55 Dose Route Admin Location Dispensed Lot Number Expiration Date NDC Manager Of Program 500 mg IM right buttock 1 ea [id number] 03/22/26 3262-5327-55 [facility] Total Dispensed Waste 1 ea 0 % Assessment & Plan Assessment & Plan Orders: Orders AMB Ceftriaxone Injection Today N50.819 - Testicular pain, unspecified, R76.8 - Other specified abnormal immunological findings in serum Coding
--- OUTSIDE RECORDS SUMMARY | 2025-05-22 10:32 | XMS_ITS | Patient Health Record ---
[facility] Address [address] [place] [address] Care Team Providers Care Floor Broker Name Role Phone Terrence MONCADA, [place] Primary Care Provider UnaRebeca Doyle Unavailable [phone] Reason For Referral No Information Medications Medication [...] 300 MG TAKE 1 CAPSULE BY MO [facility] AT BEDTIME Active Social History Tobacco [...] Date Coverage End Date Cigna [address] Victoriano coorna, [place] [address] [id number] Isma Zarate Self - patient is the insured Medical (General) History Surgical History Surgery Date(Month/Year) Tooth extraction 2018
--- OUTSIDE RECORDS SUMMARY | 2025-05-22 10:32 | XMS_ITS | Data Portability ---
Author Organization [place] [facility], Allergy Address [address] [address] Care Team Providers Care Mold Burner Name Role Phone NILAY KENNEDY Primary Care Provider [phone] Assessment Encounter Date Assessment Date Assessment LastModified [...] that Dr. William is in the office. [email or web address] Not available 12/21/2023 10:29:16 02/08/2024 02/08/2024 Canal polyp resolved. Asymmetric hearing loss. Differential reviewed with patient to include asymmetric noise exposure versus retrocochlear pathology to include acoustic neuroma versus others. Reviewed utility of and rationale for MRI of IACs. 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 Recommend hearing protection. For the [...] that cerumen is a natural antibiotic, antifungal, onion topper, and moisturizer of the delicate external auditory canal skin. The use of Q-tips strips away this natural protection and makes the ear canal skin more likely to become itchy, irritated or become infected. There is also the risk of trauma to the tympanic membranes as well. We discussed proper aural hygiene techniques to maintain the health of the external ears. [email or web address] Not available 02/12/2025 13:23:59 Plan of Treatment [...] ear drops,echo pension 20[email or web address] [facility]/Pharmacy #[id number], [address] [facility], [place], [address], 02/08/2024 11:45:24 TobraDex 0.3 %-0.1 % eye drops,echo pension 2023 025 [facility]/Pharmacy #[id number], [address] [facility], [place], [address], 08/15/2024 08:57:45 Patient TargetsNo targets recorded. Patient InstructionsNo instructions recorded. Reason for Referral None Reported. Results Created Date Observation Date Name Description Value Unit Range Abnormal Flag Note LastModifiedBy Organization Detail LastModifiedTime 02/11/20 24 audio gram No observ ation record ed. [email or web address] Not Available 01/21 16:17:16 08/15/19 audio gram No observ ation record ed. [email or web address] Not Available 2024 10:18:04 Result Notes None recorded. 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 Jammie barlow [place] - [facility] 4 10:56:52 Otorrhea of left ear 62971302184 31830 Active 2023 OSCAR LO MD [address] [facility], [place], [address] , [place] - [facility] 4 11:01:34 Polyp of left external ear canal 94034282039 04785 Completed 202302/12/2025 ED WILLIAM MD [address] [facility] [place], [place], [address] , [place] - [facility] 5 13:18:51 Cholestea marissa of external ear 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 - [facility] 4 12:27:52 Obstructi ve sleep apnea syndrome 80851407 Active 2024 ED WILLIAM MD [address] [facility],[place] [address], [facility] [place], [address] , [facility] - [facility] 5 13:22:33 Problem Notes None recorded. Procedures Surgical History Date Name Laterality Status Provider Name and Address Organization Details Recorded Time 5 Debridement of Ear canal left completed ED WILLIAM MD [address] [facility],[place] [address], [place], [address], [facility] - [facility] 02/12/2025 13:20:39 5 Air & Speech Audio with Tymps - 00754, 41773 & 16821 completed DA ARREOLA AUD [address] [facility],[place] [address], [place], [address], [facility] - [facility] 08/15/2024 09:15:17 4 Comp Audio with Tymps - 29879 & 57366 completed THO BUSBY [address] [facility],[place] [address], [place], [address], [facility] - [facility] 02/08/2024 12:27:18 4 Debridement of Ear canal left completed ED WILLIAM MD [address] [facility],[place] [address], [place], [address], [facility] - [facility] 01/08/2024 10:56:54 Imaging Results None recorded. Procedure [...] Updated DateTime 08/15/2024 177.8 cm 33.7 kg/m2 651080.21 g Tara Saez [place] - [facility] 08/15/2024 09:53:35 Date Recorded Body height Body mass index (BMI) Body weight Provider Name and Address Organization Details Last Updated DateTime 12/21/2023 177.8 cm 33 kg/m2 768761.25 g Emmie Alvarez [place] - [facility] 12/21/2023 09:48:45 Date Recorded Body height Body mass index (BMI) Body weight Provider Name and Address Organization Details Last Updated DateTime 01/08/2024 177.8 cm 33 kg/m2 201967.25 g Lavelle Campa [place] - [facility] 01/08/2024 10:05:44 Date Recorded Body height Body mass index (BMI) Body weight Provider Name and Address Organization Details Last Updated DateTime 02/12/2025 177.8 cm 34.4 kg/m2 320409.17 g SARAY PEGGY [place] - [facility] 02/12/2025 13:11:35 Social History None recorded. Functional Status Question Answer Note LastModified by Organizat ion Details LastModified Time Do you or have you ever used any other forms of tobacco or nicotine? No Information not available 12/07/2023 What is your level of alcohol consumption? Occasional Information not available 12/07/2023 Mental Status None recorded. Family History Nothing Reported. Medical History Condition Response Hypertension Y Immunizations Vaccine Type Date Status Note Provider Nam e and Address Organization Details Recorded Time influenza nasal, unspecified formulation 3 completed Jammie barlow [place] - [facility] 12/07/2023 10:55:15 Past Encounters Encounter ID Performer Location Encounter Start Date Encounter Closed Date Diagnosis/Indication Diagnosis SNOMED-CT Code Diagnosis ICD10 Code Diagnosis IMO Codes Diagnosis Note [id number] OSCAR LO MD [facility] [address] [address] 12/07/2023 10:15:49 12/07/2023 11:07:26 Otorrhea of left ear 4656199340 522984 H92.12 Left-sided otorrhea has been present for [...] dry ear precaution s. Follow-up with physician dietary assistant for reassessme nt in approximat yehuda 2 weeks. At that time considerat ion could be given to adjustment of medication s, further debridemen t, removal of polyp. Eventually when the infection is under control investigat ion of hearing testing will be helpful Polyp of l eft external ear canal 9964630089 796527 H61.892 [id number] KIERAN REYNOLDS PA-C [facility] [address] [address] 12/21/2023 09:35:38 12/21/2023 10:20:20 Otorrhea of left ear 2806103318 504137 H92.12 Polyp of l eft external ear canal 0423119738 428971 H61.892 [id number] ED WILLIAM MD [facility] [address] [address] 01/08/2024 09:52:47 01/08/2024 10:56:20 Cholesteatoma of external ear 44412285 H60.42 Patient had a large deeply impacted [...] Polyp of l eft external ear canal 8286894965 025097 H61.892 The inflammato ry polyp appears smaller than previous descriptio ns, hopefully this will resolve with treatment with the above-ment ioned regimen. [id number] CHADWICK VARGAS PA-C [facility] [address] [address] 02/08/2024 11:32:35 02/08/2024 12:39:17 Bilateral tinnitus 9336758011 102 H93.13 Sensorineu ral hearing loss in left ear 7539969044 9109 H90.42 Audiologic al evaluation results: Right ear: Normal hearing with excellent word recognitio n. Left ear: Normal sloping to a mild sensorineu ral hearing loss with excellent word recognitio n. Tympanomet ry: Right Ear:Type A Left Ear:Type A [id number] CHADWICK VARGAS PA-C [facility] [address] [address] 08/15/2024 08:51:11 08/15/2024 10:04:38 Bilateral tinnitus 6579917977 102 H93.13 Audiologic al evaluation results: Right ear:Normal hearing. Left ear:Normal hearing. Tympanomet ry:Right Ear: Type ALeft Ear: Type A Cholesteat kandace of external ear 97155021 H60.42 Polyp of l eft external ear canal 6911459632 763022 H61.892 [id number] ED WILLIAM MD [facility] [address] [address] 02/12/2025 13:01:07 02/12/2025 13:24:55 Cholesteatoma of external ear 30183550 H60.42 Obstructiv e sleep apnea syndrome 12287610 G47.33 [id number] Patient recently diagnosed with obstructiv e sleep [...] 1 [employer] - [employer] (PPO) Oliverio Elliot [id number] Oliverio Elliot 02/12/2025 1 [employer] Oliverio Elliot [id number] Oliverio Elliot 02/12/2025 1 [employer] - [employer] (PPO) [id number] Oliverio Elliot [id number] Oliverio Elliot 04/07/2025 1 [employer] (PPO) [id number] Oliverio W Elliot [id number] Oliverio Elliot 02/12/2025 2 [employer] [id number] Oliverio Elliot [id number] Oliverio Elliot 02/12/2025 1 [facility]-[employer] - CIGNA Oliverio Elliot [id number] Oliverio Elliot 02/12/2025 1 [employer] - C PPO (PPO) [id number] Oliverio W Elliot [id number] Oliverio Elliot Notes Date Note Type Note Provider Name and Address Organization Details Recorded Time 12/21/2023 text/html ROS as noted in the [facility] 48-year-old male presents for follow-up of left sided otorrhea and ear canal polyp. He has been using TobraDex. No further otorrhea. Denies otalgia. Hearing continues to feel decreased on the left. Denies prior otologic surgeries or history of chronic ear infections. OSCAR LO MD [address] [place] [address], [address], 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 XOCHITL NORTON MD [address] [facility],[address], [address], [facility] 02/09/2024 05:12:33 08/15/2024 text/html ROS as noted in the [facility] 49 year old male presents [...] has not changed. SHERIF FRAZIER MD [address] [facility],[address], [address], [facility] 08/15/2024 12:41:15 02/12/2025 text/html ROS as noted in the [facility] 50 year old male presents [...] his nose and throat. ED WILLIAM MD [address] [place] [address], [address], [facility] - [facility] 02/12/2025 13:24:05
== END 2025-05-22 09:57 | disposition home or self-care (01) ==
LOC: HO.HMCH 09:30
PROVIDERS: PCP Internal Medicine; Visit Provider Internal Medicine
DX: N50.819 Testicular pain, unspecified (principal); R76.89 Other specified abnormal immunological findings in serum

== ENCOUNTER → 2025-05-22 09:30 | Outpatient (BNVA) | payer OTHER, SELFPAY | PROVIDERS: PCP Internal Medicine; Visit Provider Internal Medicine | DX: N50.819 Testicular pain, unspecified (principal); R76.89 Other specified abnormal immunological findings in serum | CPT/HCPCS: 96372; J0696 ==

== ENCOUNTER 2025-06-01 07:50 | Outpatient (AMB) | payer OTHER, SELFPAY ==
--- OUTSIDE RECORDS SUMMARY | 2025-06-01 07:52 | XMS_ITS | Patient Health Record ---
Author Organization [facility] Address [address] [place] [address] Care Team Providers Care News Agent Name Role Phone Terrence MONCADA, [place] Primary Care Provider UnaRebeca Doyle Unavailable [phone] Reason For Referral No Information Medications Medication [...] 300 MG TAKE 1 CAPSULE BY MO [facility] AT BEDTIME Active Social History Tobacco Use: [...] Date Coverage End Date Cigna [address] Victoriano corona, [place] [address] [id number] Isma Zarate Self - patient is the insured Medical (General) History Surgical History Surgery Date(Month/Year) Tooth extraction 2018
--- OUTSIDE RECORDS SUMMARY | 2025-06-01 07:53 | XMS_ITS | Data Portability ---
Author Organization [place] - [facility], Allergy Address [address] [address] Care Team Providers Care Food Mixer Assembler Name Role Phone NILAY KENNEDY Primary Care [...] that Dr. William is in the office. [email or web address] Not available 12/21/2023 10:29:16 02/08/2024 02/08/2024 Canal polyp resolved. Asymmetric hearing loss. Differential reviewed with patient to include asymmetric noise exposure versus retrocochlear pathology to include acoustic neuroma versus others. Reviewed utility of and rationale for MRI of IACs. 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 Recommend hearing protection. For the tinnitus [...] that cerumen is a natural antibiotic, antifungal, loin trimmer, and moisturizer of the delicate external auditory canal skin. The use of Q-tips strips away this natural protection and makes the ear canal skin more likely to become itchy, irritated or become infected. There is also the risk of trauma to the tympanic membranes as well. We discussed proper aural hygiene techniques to maintain the health of the external ears. [email or web address] Not available 02/12/2025 13:23:59 Plan of Treatment [...] ear drops,echo pension 2023 024 [email or web address] [facility]armacy #[id number], [address] [facility], [place], [address], 02/08/2024 11:45:24 TobraDex 0.3 %-0.1 % eye drops,echo pension 2023 025 [facility]/Ph[facility]acy #[id number], [address] [facility], [place], [address], 08/15/2024 08:57:45 Patient TargetsNo targets recorded. Patient InstructionsNo instructions recorded. Reason for Referral None Reported. Results Created Date Observation Date Name Description Value Unit Range Abnormal Flag Note LastModifiedBy Organization Detail LastModifiedTime 02/11/20 24 audio gram No observ ation record ed. [email or web address] Not Available 01/21 16:17:16 08/15/19 audio gram No observ ation record ed. [email or web address] Not Available 2024 10:18:04 Result Notes None recorded. Problems Name Problem SNOMED Code Status Onset Date Resolution Date Notes Provider Name and Address Organization Details Recorded Time Hypertens jody disorder 55969408 Active 2023 Jammie barlow [place] - [facility] 4 10:56:52 Otorrhea of left ear 38255249181 26963 Active 2023 OSCAR LO MD [address] [facility], [place], [address] , [place] - [facility] 4 11:01:34 Polyp of left external ear canal 26239317682 41747 Completed 202302/12/2025 ED WILLIAM MD [address] [facility], [place], [address] , [place] - [facility] 5 13:18:51 Cholestea marissa of external ear 76734585 Active 2023 ED WILLIAM MD [address], [place], [address] , [place] - [facility] 4 10:54:03 Bilateral tinnitus 27478774856 02 Active 2023 [address]O BUSBY [address], [place], [address] , [place] - [facility] 4 12:27:34 Sensorine ural hearing loss in left ear 45135483741 109 Active 2023 CARTER SHAW AUD [address] [facility],[place] [address], [facility] [place], [address] , [facility] - [facility] 4 12:27:52 Obstructi ve sleep apnea syndrome 51391681 Active 2024 ED WILLIAM MD [address] [facility],[place] [address], [facility] [place], [address] , [facility] - [facility] 5 13:22:33 Problem Notes None recorded. Procedures Surgical History Date Name Laterality Status Provider Name and Address Organization Details Recorded Time 5 Debridement of Ear canal left completed ED WILLIAM MD [address] [facility],[place] [address], [place], [address], [facility] - [facility] 02/12/2025 13:20:39 5 Air & Speech Audio with Tymps - 03025, 36310 & 15616 completed DA ARREOLA AUD [address] [facility],[place] [address], [place], [address], [facility] - [facility] 08/15/2024 09:15:17 4 Comp Audio with Tymps - 75836 & 63059 completed THO BUSBY [address] [facility],[place] [address], [place], [address], [facility] - [facility] 02/08/2024 12:27:18 4 Debridement of Ear canal left completed ED WILLIAM MD [address] [facility],[place] [address], [place], [address], [facility] - [facility] 01/08/2024 10:56:54 Imaging Results None recorded. Procedure [...] Updated DateTime 08/15/2024 177.8 cm 33.7 kg/m2 351321.21 g Tara Saez [place] - [facility] 08/15/2024 09:53:35 Date Recorded Body height Body mass index (BMI) Body weight Provider Name and Address Organization Details Last Updated DateTime 12/21/2023 177.8 cm 33 kg/m2 920302.25 g Emmie Alvarez [place] - [facility] 12/21/2023 09:48:45 Date Recorded Body height Body mass index (BMI) Body weight Provider Name and Address Organization Details Last Updated DateTime 01/08/2024 177.8 cm 33 kg/m2 254117.25 g Lavelle Campa [place] [facility] 01/08/2024 10:05:44 Date Recorded Body height Body mass index (BMI) Body weight Provider Name and Address Organization Details Last Updated DateTime 02/12/2025 177.8 cm 34.4 kg/m2 287172.17 g SARAY PEGGY [place] - [facility] 02/12/2025 13:11:35 Social History None recorded. Functional Status Question Answer Note LastModified by Organizat ion Details LastModified Time Do you or have you ever used any other forms of tobacco or nicotine? No [email or web address] Information not available 12/07/2023 What is your level of alcohol consumption? Occasional [email or web address] Information not available 12/07/2023 Mental Status None recorded. Family History Nothing Reported. Medical History Condition Response Hypertension Y Immunizations Vaccine Type Date Status Note Provider Nam e and Address Organization Details Recorded Time influenza nasal, unspecified formulation 3 completed Jammie barlow [place] - [facility] 12/07/2023 10:55:15 Past Encounters Encounter ID Performer Location Encounter Start Date Encounter Closed Date Diagnosis/Indication Diagnosis SNOMED-CT Code Diagnosis ICD10 Code Diagnosis IMO Codes Diagnosis Note [id number] OSCAR LO MD [facility] [address] [address] 12/07/2023 10:15:49 12/07/2023 11:07:26 Otorrhea of left ear [id number] 390231 H92.12 Left-sided otorrhea has been present for [...] dry ear precaution s. Follow-up with physician expanded duty dental assistant for reassessme nt in approximat yehuda 2 weeks. At that time considerat ion could be given to adjustment of medication s, further debridemen t, removal of polyp. Eventually when the infection is under control investigat ion of hearing testing will be helpful Polyp of l eft external ear canal 4380574210 507807 H61.892 [id number] KIERAN REYNOLDS PA-C [facility] [address] [address] 12/21/2023 09:35:38 12/21/2023 10:20:20 Otorrhea of left ear 3843629935 719020 H92.12 Polyp of l eft external ear canal 5231241989 755354 H61.892 [id number] ED WILLIAM MD [facility] [address] [address] 01/08/2024 09:52:47 01/08/2024 10:56:20 Cholesteatoma of external ear 65542563 H60.42 Patient had a large deeply impacted [...] Polyp of l eft external ear canal 5904804933 864557 H61.892 The inflammato ry polyp appears smaller than previous descriptio ns, hopefully this will resolve with treatment with the above-ment ioned regimen. [id number] CHADWICK VARGAS PA-C [facility] [address] [address] 02/08/2024 11:32:35 02/08/2024 12:39:17 Bilateral tinnitus 2148296725 102 H93.13 Sensorineu ral hearing loss in left ear 0948782007 9109 H90.42 Audiologic al evaluation results: Right ear: Normal hearing with excellent word recognitio n. Left ear: Normal sloping to a mild sensorineu ral hearing loss with excellent word recognitio n. Tympanomet ry: Right Ear:Type A Left Ear:Type A [id number] CHADWICK VARGAS PA-C [facility] [address] [address] 08/15/2024 08:51:11 08/15/2024 10:04:38 Bilateral tinnitus 4279524032 102 H93.13 Audiologic al evaluation results: Right ear:Normal hearing. Left ear:Normal hearing. Tympanomet ry:Right Ear: Type ALeft Ear: Type A Cholesteat kandace of external ear 92132520 H60.42 Polyp of l eft external ear canal 5582943415 562175 H61.892 [id number] ED WILLIAM MD [facility] [address] [address] 02/12/2025 13:01:07 02/12/2025 13:24:55 Cholesteatoma of external ear 85919998 H60.42 Obstructiv e sleep apnea syndrome 53389135 G47.33 [id number] Patient recently diagnosed with obstructiv e sleep [...] 1 [employer] - [employer] (PPO) Oliverio Elliot [id number] Oliverio Elliot 02/12/2025 1 [employer] Oliverio Elliot [id number] Oliverio Elliot 02/12/2025 1 [employer] - [employer] (PPO) [id number] Oliverio Elliot [id number] Oliverio Elliot 04/07/2025 1 [employer] (PPO) [id number] Oliverio W Elliot [id number] Oliverio Elliot 02/12/2025 2 [employer] [id number] Oliverio Elliot [id number] Olievrio Leliot 02/12/2025 1 [facility]-[employer] - CIGNA Oliverio Elliot [id number] Oliverio Elliot 02/12/2025 1 [employer] - C PPO (PPO) [id number] Oliverio W Elliot [id number] Oliverio Elliot Notes Date Note Type Note Provider Name and Address Organization Details Recorded Time 12/21/2023 text/html ROS as noted in the [facility] 48-year-old male presents for follow-up of left sided otorrhea and ear canal polyp. He has been using TobraDex. No further otorrhea. Denies otalgia. Hearing continues to feel decreased on the left. Denies prior otologic surgeries or history of chronic ear infections. OSCAR LO MD [address] [place] [address], [address], [facility] - [facility] 12/21/2023 18:05:17 01/08/2024 text/html ROS as noted in the [facility] 48-year-old male presents for follow-up of [...] New onset tinnitus ED WILLIAM MD [address] [facility],[address], [address], [facility] 01/08/2024 11:00:04 02/08/2024 text/html ROS as noted in the 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 XOCHITL NORTON MD [address] [facility],[address], [address], [facility] 02/09/2024 05:12:33 08/15/2024 text/html ROS as noted in the [facility] 49 year old male presents for [...] has not changed. SHERIF FRAZIER MD [address] [facility],[address], [address], [facility] 08/15/2024 12:41:15 02/12/2025 text/html ROS as noted in the [facility] 50 year old male presents for [...] his nose and throat. ED WILLIAM MD [address] [place] [address], [address], [facility] - [facility] 02/12/2025 13:24:05
[2025-06-01 08:11] VITALS: BP 136/80; PULSE 75; TEMP 36.3; O2SAT 98; BMI 36.0
--- NOTE | 2025-06-01 08:11 | MHC.PC.OV ---
Vital Signs 06/01/25 08:11 Height 5 ft 11 in Weight 258 lb BMI 36.0 BP 136/80 Blood Pressure Location Rt brachial Position Sitting Pulse 75 Pulse Source Pulse Oximeter Temp 97.3 F Temp Source Temporal Artery Scan Pulse Oximetry (%) 98 Oxygen Delivery Method Room Air Intake Visit Reasons: 10 day f/u Intake Note: Patient is here to follow up on Pain and swelling of left testicle. 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 Accompanied by: Self / Same As Patient Allergies No Known Allergies Allergy (Verified 06/01/25 08:12) Medication List - Last Reconciled 06/01/25 by Sven Delcid MD amlodipine 5 mg PO DAILY 90 days aspirin (Adult Low Dose Aspirin) 81 mg PO DAILY ceftriaxone 1 g IM ONCE cholecalciferol (vitamin D3) 50 mcg PO DAILY 3 months MDD 50mcg hydralazine 50 mg PO BID 90 days ibuprofen 800 mg PO Q8H PRN 14 days levofloxacin 500 mg PO DAILY losartan 100 mg PO DAILY tamsulosin 0.4 mg PO DAILY 90 days trazodone 50 mg PO BEDTIME PRN 90 days Tobacco use date assessed: 06/01/25 Dental Screening Dental Screen Date: 06/01/25 Did you have a dental visit in the last 12 months?: No Did you have a dental problem in the last 6 months where you did not have access to dental care?: No Was dental information given to patient?: Patient has dentist HPI HPI Comments History of Present Illness Details The patient is a 50-year-old male presenting for follow-up of a scrotal lump. He was seen in clinic 2 weeks ago. His scrotum US from 05/15/2024 showing left epididymal cyst, right hydrocele, and concerns of mild orchitis. He received CTX IM shot and completed 10 days course of Levofloxacin for orchitis. The patient reports his discomfort is no longer bothering him. He experienced gastrointestinal symptoms while taking the antibiotics. He denies any fever, chills, penile discharge, or problems with urination. The patient has a history of hypertension, and his blood pressure was noted to be better during this visit. [facility] Medical History Vitamin D deficiency Insomnia Obstructive sleep apnea Impaired fasting glucose Mixed hyperlipidemia GERD without esophagitis Obesity (BMI 30-39.9) BPH (benign prostatic hyperplasia) Dyslipidemia Essential hypertension Surgical History H/O colonoscopy History of prostate surgery Family History Father Diabetes Hypertension Mother Hypertension Family/Other Asthma Social History Housing: House Alcohol intake: current Alcohol intake frequency: holidays/special occasions only Alcohol type: beer Patient Tobacco Use Status: Former Tobacco user Tobacco use type: Cigarette e-Cigarette/Vaping Use: Never Used Second Hand Smoke Exposure: No service: No Current occupational status: employed Current occupational exposures/hazards: No Cognitive needs: No Hearing needs: No Vision needs: No Questionnaire PHQ-9 Over the last 2 weeks, how often have you been bothered by any of the following problems? 1. Little interest or pleasure in doing things: not at all 2. Feeling down, depressed, or hopeless: not at all 3. Trouble falling or staying asleep, or sleeping too much: not at all 4. Feeling tired or having little energy: not at all 5. Poor appetite or overeating: not at all 6. Feeling bad about yourself - or that you are a failure or have let yourself or your family down: not at all 7. Trouble concentrating on things, such as reading the newspaper or watching television: not at all 8. Moving or speaking so slowly that other people could have noticed. Or the opposite - being so fidgety or restless that you have been moving around a lot more than usual: not at all 9. Thoughts that you would be better off or of hurting yourself in some way: not at all Total score: 0 Depression Screening Interpretation: Negative Depression Screening Done: Yes 82137 - PHQ-9 Billing: Yes Source: Developed by Drs. Robert Stephenson, Noelle Hirsch, Luan Collazo and colleagues, with an educational vanessa from [employer]. Thrive Questionnaire Date Thrive assessed: 02/19/25 I am a: Patient What is your living situation today?: I have a steady place to live Within the past 12 months, did the food you bought not last and you didn't have the money to get more?: Never true Within the past 12 months, did you worry whether your food would run out before you got money to buy more?: Never true Do you have trouble paying for medicines?: No Do you have trouble getting transportation to medical appointments?: No Do you have trouble paying your heating and electricity bill?: No Do you have trouble taking care of your child, family member or friend?: No Do you have trouble with day-to-day activities such as bathing, preparing meals, shopping, managing finances, etc.?: No Are you currently unemployed and looking for a job?: No Are you interested in more education?: No Please select the resources that you would like help with: None Currently or been in a relationship where the following occur: No concerns reported THRIVE Score: 0 AUDIT C Alcohol Use Questionnaire (AUDIT-C) 1. How often do you have a drink containing alcohol?: 2-4 times a month 2. How many drinks containing alcohol do you have on a typical day when you are drinking?: 1 or 2 3. How often do you have six or more drinks on one occasion?: Never Total Score: 2 Score Reviewed/Action Taken: Yes ARLEEN-7 AMB Questionnaire ARLEEN-7 Date ARLEEN - 7 assessed: 06/01/25 Feeling nervous, anxious, or on edge: 0 = Not at all Not being able to stop or control worryin = Not at all Worrying too much about different things: 0 = Not at all Trouble relaxin = Not at all Being so restless that it is hard to sit still: 0 = Not at all Becoming easily annoyed or irritable: 0 = Not at all Feeling afraid as if something awful might happen: 0 = Not at all Total ARLEEN-7 score (0-4 normal; 5-9 mild; 10-14 moderate; 15-21 severe): 0 Source: Developed by Drs. Robert Stephenson, Noelle Hirsch, Luan Collazo and colleagues, with an educational vanessa from [employer]. Review of Systems Const Details: As per HPI. Physical exam (Primary Care) Vital Signs: Last Vital Signs Temp 97.3 F 06/01/25 08:11 Pulse 75 06/01/25 08:11 BP 136/80 06/01/25 08:11 Pulse Ox 98 06/01/25 08:11 Oxygen Delivery Method Room Air 06/01/25 08:11 BMI result Body Mass Index 36.0 Tobacco/Smoking Status: Tobacco use Status Tobacco use date assessed 06/01/25 06/01/25 08:16 Patient Tobacco Use Status Former Tobacco user 06/01/25 08:16 Tobacco use type Cigarette 06/01/25 08:16 e-Cigarette/Vaping Use Never Used 06/01/25 08:16 PHQ-9: PHQ-9 Score PHQ-9: Total score 0 06/01/25 08:21 Depression Screening Interpretation: Negative Thrive Assessment: Date of Thrive Assessment Date Thrive assessed 02/19/25 06/01/25 08:16 Currently or been in a relationship where the following occur: No concerns reported Const Other: Pertinent findings are in BOLD GENERAL APPEARANCE NAD, activity normal for age, well developed/ well nourished, no cyanosis, pallor, or diaphoresis. EYES lids/conjunctiva normal. EARS/NOSE/THROAT Mucous membranes moist, nares normal, lips/teeth normal uvula midline without oral pharyngeal erythema, exudate or swelling TMs normal bilaterally. No lymphangitis/lymphedema. HEAD/NECK normocephalic atraumatic, no facial trauma, neck is supple. RESPIRATORY respiratory effort normal, speaks in full sentences, no tripod position, no accessory muscle use. Lungs clear to auscultation without rhonchi, wheezes, rales CARDIAC Regular rate and rhythm, no edema. ABDOMINAL Soft, ND/NT. No evidence of fluid wave. No pulsatile masses on exam, rebound tenderness, Ward sign or pain over Mcburney's point. MUSCLES/EXTREMITIES No abnormal range of motion, no swelling. SKIN Warm, pink and dry. No rashes, dermatoses, petechiae or lesions. NEUROLOGICAL Speech is clear and appropriate. Normal level of consciousness. Gait and coordination are normal. 5/5 strength in all extremities. PSYCH Normal mood and affect. Judgement/competence is appropriate Coding Level of Care Code Est Pt Level 3 (55803) Diagnoses Orchitis N45.2 Additional Codes PHQ-9 - 39868 - PHQ-9 Billing: Yes ([id number]) Time Spent (min) 20 Assessment & Plan Assessment & Plan (1) Orchitis: Code(s): N45.2 - Orchitis Category: Medical Plan: - The patient's discomfort has resolved following treatment with IM CTX and levofloxacin. - The condition is suspected to be a benign hydrocele. - An urgent repeat ultrasound will be ordered to assess the area post-treatment. - The patient will proceed with his scheduled urology follow-up on July 20. - 6 weeks F-U to follow-up on Scrotum US findings. Plan I discussed with the patient that his scrotal discomfort has resolved and that the initial issue was likely a benign hydrocele. I explained that the antibiotics were given as a precautionary measure. To confirm resolution, I will order a repeat ultrasound. The patient will continue with his scheduled urology appointment on July 20 and 6 weeks follow-up with us in clinic. Patient declined Flu vaccine today. Orders: Orders US scrotum doppler Today N45.2 - Orchitis
== END 2025-06-01 08:33 | disposition home or self-care (01) ==
LOC: HO.HMCH 07:51
PROVIDERS: PCP Internal Medicine; Visit Provider Internal Medicine
DX: N45.2 Orchitis (principal)

== ENCOUNTER → 2025-06-01 07:50 | Outpatient (BNVA) | payer OTHER, SELFPAY | PROVIDERS: PCP Internal Medicine; Visit Provider Internal Medicine | DX: N45.2 Orchitis (principal) | CPT/HCPCS: 96127 ==

== ENCOUNTER 2025-06-10 08:25 | Outpatient (AMB) | payer OTHER, SELFPAY ==
--- NOTE | 2025-06-10 10:24 | A.OFFVIS_ITS ---
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 Allergies No Known Allergies Allergy (Verified 06/10/25 10:24) Medication List - Last Reconciled 06/10/25 by Gene Montes MD amlodipine 5 mg PO DAILY 90 days aspirin (Adult Low Dose Aspirin) 81 mg PO DAILY cholecalciferol (vitamin D3) 50 mcg PO DAILY 3 months MDD 50mcg hydralazine 50 mg PO BID 90 days ibuprofen 800 mg PO Q8H PRN 14 days losartan 100 mg PO DAILY tamsulosin 0.4 mg PO DAILY 90 days trazodone 50 mg PO BEDTIME PRN 90 days HPI HPI 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: Details: Start time: 10.20am, End time: 11.05am ?I spent 40 minutes speaking with the patient on the phone plus an additional 5 minutes reviewing and updating records for a total of 45 minutes HPI Comments Details: Previous weight loss efforts: self diet and exercise Wakes up: 4.30am, Sleeps: 9pm Breakfast: 6am (muffin) Lunch: 11am (sandwich) Dinner: 5-6pm (chicken, pork, steak, vegetable, starch) Snacks: 9am (peanut butter crackers), 7pm (ice cream occasionally) Exercise: none Beverages: Coffee (16oz with cream and sugar), Tea: none, Soda: 1/wk, Juice: Apple juice 2-3/wk, ETOH: 2/month (2 beers) [facility] Medical History (Updated 06/10/25 @ 10:29 by Gene Montes MD) DJD (degenerative joint disease) BMI 35.0-35.9,adult Vitamin D deficiency Insomnia Obstructive sleep apnea Impaired fasting glucose Mixed hyperlipidemia GERD without esophagitis Obesity (BMI 30-39.9) BPH (benign prostatic hyperplasia) Dyslipidemia Essential hypertension Surgical History H/O colonoscopy History of prostate surgery Family History Father Diabetes Hypertension Mother Hypertension Family/Other Asthma Social History Housing: House Alcohol intake: current Alcohol intake frequency: holidays/special occasions only Alcohol type: beer Patient Tobacco Use Status: Former Tobacco user Tobacco use type: Cigarette e-Cigarette/Vaping Use: Never Used Second Hand Smoke Exposure: No service: No Current occupational status: employed Current occupational exposures/hazards: No Cognitive needs: No Hearing needs: No Vision needs: No Physical Exam Vital Signs: BMI result Body Mass Index 35.8 Telehealth Telehealth Telehealth Platform: Telephone Location of provider rendering services: practice address Location of patient: address on file Patient Identification confirmed using: Name, : Yes Telehealth method: voice only Patient verbally consented to treatment: Yes Patient verbally consented to billing insurance company: Yes Patient informed of any privacy concerns related to visit: Yes Minutes spent on Phone/Video with Pt.: 45 Assessment & Plan Assessment & Plan (1) Obesity (BMI 30-39.9): Code(s): E66.9 - Obesity, unspecified Category: Medical Plan: 1. As we discussed, based on your present BMI you are approximately 60lbs overweight. In my opinion, for any weight loss strategy to be successful should have a high probability to help you lose at least 50lbs out of 60lbs of the extra weight you carry. We discussed in detail the available therapeutic options: 1) our lifestyle intervention program that has an average weight loss of 10% in 3 months.?Some patients continue it for longer and have lost over 50lbs but this is not common. Our lifestyle program can be provided by me. I will provide you with a link to use the agustina if you choose to do so. We use protein shakes and protein bars to replace some of the meals of the day and cover your appetite better. We will decide together the exact combination. 2) Weight loss medications: these can be used in conjunction with our lifestyle program or you may choose to use them without following a lifestyle program from my program but your own. As we discussed, your insurance usually requires you to do the lifestyle program for 3 months before they approve the medications. The medication I use more often is called Zepbound and is one shot per week. My office will do the authorizations and we will train you how to use it properly. We also discussed that you can self pay for the first 3 months and the cost is $249 for the first month and $499 for any other month thereafter. These payments go to the drug company directly and not to us. As we discussed, this is not a usp solution, as most patients put all the weight back once they are off the medication. 3) We also discussed about the lap sleeve gastrectomy. In my opinion this is the best option to solve your problem based on your situation and should be used in conjunction with the two previous options. A good strategy to make this decision to proceed with surgery, as soon as you achieve a specific goal with the lifestyle intervention and medication options: to lose least 10% of your initial weight in 3 months. ?I emphasized the importance of close follow-up, adherence to instructions and good communication. The surgery does not replace the need to change your lifestlyle which is the cause of the obesity problem. The surgery provides the motivation to try again to change your lifestyle, it reduces the appetite and make the transition to a better lifestyle easier and doubles the amount of weight you would lose compared to doing the lifestyle change without the surgery. You will need to be on a liquid diet with protein shakes for 2 weeks before surgery to maximize weight loss and boost your nutritional status to recover better from surgery and also for the first two weeks after surgery to let the stomach heal before we introduce other foods. After the first 2 weeks we will introduce protein bars and soft foods like scrambled eggs, cottage cheese and yogurt and after the 6th week will introduce meat, fish and cooked vegetables in small amounts. Over time you should be able to eat everything in small amounts. Side effects like nausea, vomiting, heartburn or abdominal pain are not common in the practice unless you are not following in the practice. This operation requires lifetime commitment to following in our practice and communication with me. You will much less weight and experience side effects if you don?t communicate or not following in the practice. Complications are rare and in our practice is about 1/10 of the national average. The patient would like to proceed with the GLP-1 injection option. Start the Wegovy when you get your body composition scale once a week. Use a calorie- counting agustina to track your daily calories to create a calorie deficit with a target of consuming 3293-7391 calories per day. We discussed the potential side effects of Wegovy such as nausea, vomiting, abdominal pain, diarrhea and constipation and you will need to contact me if any of these symptoms occur or for any other new symptom you may experience Medications: New semaglutide (weight loss) (Jared) administer weeks 1 through 4 of therapy 0.25 mg (0.5 mL) subcut QWEEK 2 mL 0RF E66.9 - Obesity, unspecified, E78.2 - Mixed hyperlipidemia, G47.33 - Obstructive sleep apnea (adult) (pediatric), I10 - Essential (primary) hypertension, Z68.35 - Body mass index [BMI] 35.0-35.9, adult
[2025-06-10 10:33] VITALS: BMI 35.8
--- OUTSIDE RECORDS SUMMARY | 2025-06-10 16:07 | XMS_ITS | Data Portability ---
Author Organization [place] - [facility], Allergy Address [address] [address] Care Team Providers Care Travel Accommodations Rater Name Role Phone NILAY KENNEDY Primary Care [...] that Dr. William is in the office. [email or web address] Not available 12/21/2023 10:29:16 02/08/2024 02/08/2024 Canal polyp resolved. Asymmetric hearing loss. Differential reviewed with patient to include asymmetric noise exposure versus retrocochlear pathology to include acoustic neuroma versus others. Reviewed utility of and rationale for MRI of IACs. 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 Recommend hearing protection. For the [...] that cerumen is a natural antibiotic, antifungal, date puller, and moisturizer of the delicate external auditory canal skin. The use of Q-tips strips away this natural protection and makes the ear canal skin more likely to become itchy, irritated or become infected. There is also the risk of trauma to the tympanic membranes as well. We discussed proper aural hygiene techniques to maintain the health of the external ears. [email or web address] Not available 02/12/2025 13:23:59 Plan of Treatment [...] ear drops,echo pension 2023 024 sara 32 [facility]/Pharmacy #[id number], [address] [facility], [place], [address], 02/08/2024 11:45:24 TobraDex 0.3 %-0.1 % eye drops,echo pension 2023 025 [facility]/Pharmacy #[id number], [address] [facility] [address] [facility], [place], [address], 08/15/2024 08:57:45 Patient TargetsNo targets recorded. Patient InstructionsNo instructions recorded. Reason for Referral None Reported. Results Created Date Observation Date Name Description Value Unit Range Abnormal Flag Note LastModifiedBy Organization Detail LastModifiedTime 02/11/20 24 audio gram No observ ation record ed. [email or web address] Not Available 01/21 16:17:16 08/15/19 audio gram No observ ation record ed. [email or web address] Not Available 2024 10:18:04 Result Notes None recorded. 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 Jammie barlow [place] - [facility] 4 10:56:52 Otorrhea of left ear 12630551579 88239 Active 2023 OSCAR LO MD [address] [facility] [address], [place], [address] , [place] - [facility] 4 11:01:34 Polyp of left external ear canal 20299724743 01252 Completed 202302/12/2025 ED WILLIAM MD [address] [facility] [place], [place], [address] , [place] - [facility] 5 13:18:51 Cholestea marissa of external ear 33157904 Active 2023 ED WILLIAM MD [address], [place], [address] , [place] - [facility] 4 10:54:03 Bilateral tinnitus 70769017544 02 Active [address] BUSBY [address], [place], [address] , [place] - [facility] 4 12:27:34 Sensorine ural hearing loss in left ear 26511036770 109 Active 2023 CARTER SHAW AUD [address] [facility],[place] [address], [facility] [place], [address] , [facility] - [facility] 4 12:27:52 Obstructi ve sleep apnea syndrome 83496887 Active 2024 ED WILLIAM MD [address] [facility],[place] [address], [facility] [place], [address] , [facility] - [facility] 5 13:22:33 Problem Notes None recorded. Procedures Surgical History Date Name Laterality Status Provider Name and Address Organization Details Recorded Time 5 Debridement of Ear canal left completed ED WILLIAM MD [address] [facility],[place] [address], [place], [address], [facility] - [facility] 02/12/2025 13:20:39 5 Air & Speech Audio with Tymps - 00032, 74604 & 57114 completed DA ARREOLA AUD [address] [facility],[place] [address], [place], [address], [facility] - [facility] 08/15/2024 09:15:17 4 Comp Audio with Tymps - 92142 & 73212 completed THO BUSBY [address] [facility],[place] [address], [place], [address], [facility] - [facility] 02/08/2024 12:27:18 4 Debridement of Ear canal left completed ED WILLIAM MD [address] [facility],[place] [address], [place], [address], [facility] - [facility] 01/08/2024 10:56:54 Imaging Results None recorded. Procedure [...] Updated DateTime 08/15/2024 177.8 cm 33.7 kg/m2 909755.21 g Tara Saez [place] - [facility] 08/15/2024 09:53:35 Date Recorded Body height Body mass index (BMI) Body weight Provider Name and Address Organization Details Last Updated DateTime 12/21/2023 177.8 cm 33 kg/m2 724571.25 g Emmie Alvarez [place] - [facility] 12/21/2023 09:48:45 Date Recorded Body height Body mass index (BMI) Body weight Provider Name and Address Organization Details Last Updated DateTime 01/08/2024 177.8 cm 33 kg/m2 935314.25 g Lavelle Campa [place] - [facility] 01/08/2024 10:05:44 Date Recorded Body height Body mass index (BMI) Body weight Provider Name and Address Organization Details Last Updated DateTime 02/12/2025 177.8 cm 34.4 kg/m2 619246.17 g SARAY PEGGY [place] - [facility] 02/12/2025 13:11:35 Social History None recorded. Functional Status Question Answer Note LastModified by Organizat ion Details LastModified Time Do you or have you ever used any other forms of tobacco or nicotine? No Information not available 12/07/2023 What is your level of alcohol consumption? Occasional [email or web address] Information not available 12/07/2023 Mental Status None recorded. Family History Nothing Reported. Medical History Condition Response Hypertension Y Immunizations Vaccine Type Date Status Note Provider Nam e and Address Organization Details Recorded Time influenza nasal, unspecified formulation 3 completed Jammie barlow [place] - [facility] 12/07/2023 10:55:15 Past Encounters Encounter ID Performer Location Encounter Start Date Encounter Closed Date Diagnosis/Indication Diagnosis SNOMED-CT Code Diagnosis ICD10 Code Diagnosis IMO Codes Diagnosis Note [id number] OSCAR LO MD [facility] [address] [address] 12/07/2023 10:15:49 12/07/2023 11:07:26 Otorrhea of left ear 9152629234 169004 H92.12 Left-sided otorrhea has been present for [...] ear precaution s. Follow-up with physician assistant boiler operator for reassessme nt in approximat yehuda 2 weeks. At that time considerat ion could be given to adjustment of medication s, further debridemen t, removal of polyp. Eventually when the infection is under control investigat ion of hearing testing will be helpful Polyp of l eft external ear canal 6663240480 875010 H61.892 [id number] KIERAN REYNOLDS PA-C [facility] [address] [address] 12/21/2023 09:35:38 12/21/2023 10:20:20 Otorrhea of left ear 3670812266 310245 H92.12 Polyp of l eft external ear canal 5356114169 834569 H61.892 [id number] ED WILLIAM MD [facility] [address] [address] 01/08/2024 09:52:47 01/08/2024 10:56:20 Cholesteatoma of external ear 92763641 H60.42 Patient had a large deeply impacted [...] Polyp of l eft external ear canal 4238708217 642909 H61.892 The inflammato ry polyp appears smaller than previous descriptio ns, hopefully this will resolve with treatment with the above-ment ioned regimen. [id number] CHADWICK VARGAS PA-C [facility] [address] [address] 02/08/2024 11:32:35 02/08/2024 12:39:17 Bilateral tinnitus 3789222986 102 H93.13 Sensorineu ral hearing loss in left ear 3268128614 9109 H90.42 Audiologic al evaluation results: Right ear: Normal hearing with excellent word recognitio n. Left ear: Normal sloping to a mild sensorineu ral hearing loss with excellent word recognitio n. Tympanomet ry: Right Ear:Type A Left Ear:Type A [id number] CHADWICK VARGAS PA-C [facility] [address] [address] 08/15/2024 08:51:11 08/15/2024 10:04:38 Bilateral tinnitus 5488218127 102 H93.13 Audiologic al evaluation results: Right ear:Normal hearing. Left ear:Normal hearing. Tympanomet ry:Right Ear: Type ALeft Ear: Type A Cholesteat kandace of external ear 21592395 H60.42 Polyp of l eft external ear canal 9031281789 361249 H61.892 [id number] ED WILLIAM MD [facility] [address] [address] 02/12/2025 13:01:07 02/12/2025 13:24:55 Cholesteatoma of external ear 64043644 H60.42 Obstructiv e sleep apnea syndrome 05926187 G47.33 [id number] Patient recently diagnosed with obstructiv e sleep [...] 1 [employer] - [employer] (PPO) Oliverio Elliot [id number] Oliverio Elliot 02/12/2025 1 [employer] Oliverio Elliot [id number] Oliverio Elliot 02/12/2025 1 [employer] - [employer] (PPO) [id number] Oliverio Elliot [id number] Oliverio Elliot 04/07/2025 1 [employer] (PPO) [id number] Oliverio W Elliot [id number] Oliverio Elliot 02/12/2025 2 [employer] [id number] Oliverio Elliot [id number] Oliverio Elliot 02/12/2025 1 [facility]-[employer] - CIGNA Oliverio Elliot [id number] Oliverio Elliot 02/12/2025 1 [employer] - C PPO (PPO) [id number] Oliverio W Elliot [id number] Oliverio Elliot Notes Date Note Type Note Provider Name and Address Organization Details Recorded Time 12/21/2023 text/html ROS as noted in the [facility] 48-year-old male presents for follow-up of left sided otorrhea and ear canal polyp. He has been using TobraDex. No further otorrhea. Denies otalgia. Hearing continues to feel decreased on the left. Denies prior otologic surgeries or history of chronic ear infections. OSCAR LO MD [address] [place] [address], [address], [facility] - [facility] 12/21/2023 18:05:17 01/08/2024 text/html ROS as noted in the [facility] 48-year-old male presents for follow-up of left [...] New onset tinnitus ED WILLIAM MD [address] [facility],[address], [address], [facility] 01/08/2024 11:00:04 02/08/2024 text/html ROS as noted in the [facility] 49 year old male presents for follow [...] in the left greater than right ear. 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 XOCHITL NORTON MD [address] [facility],[address], [address], [facility] 02/09/2024 05:12:33 08/15/2024 text/html ROS as noted in the [facility] 49 year old male presents for re-evaluation [...] has not changed. SHERIF FRAZIER MD [address] [facility],[address], [address], [facility] 08/15/2024 12:41:15 02/12/2025 text/html ROS as noted in the [facility] 50 year old male presents for re-evaluation [...] his nose and throat. ED WILLIAM MD [address] [place] [address], [address], [facility] - [facility] 02/12/2025 13:24:05
--- OUTSIDE RECORDS SUMMARY | 2025-06-10 16:07 | XMS_ITS | Patient Health Record ---
Author Organization [facility] Address [address] [place] [address] Care Team Providers Care Associate Merchandiser Name Role Phone Terrence MONCADA, [place] Primary Care Provider UnaRebeca Doyle Unavailable [phone] Reason For Referral No Information Medications Medication [...] MG TAKE 1 CAPSULE BY MO [facility] AT BEDTIME Active Social History Tobacco [...] Date Coverage End Date [employer] [address] Victoriano corona, JERR[place] [address] [id number] Isma Zarate Self - patient is the insured Medical (General) History Surgical History Surgery Date(Month/Year) Tooth extraction 2018
== END 2025-06-10 11:11 | disposition home or self-care (01) ==
LOC: HO.HBS 08:25
PROVIDERS: PCP Internal Medicine; Visit Provider Surgery
DX: E66.9 Obesity, unspecified (principal); Z68.35 Body mass index [BMI] 35.0-35.9, adult
CPT/HCPCS: 98010

== ENCOUNTER 2025-06-30 14:23 | Outpatient (REF) | payer OTHER, SELFPAY ==
--- NOTE | ~2025-06-30 | US_ITS ---
EXAMINATION: US SCROTUM CLINICAL INFORMATION: Orchitis. Follow-up from 05/15/2025. COMPARISON: 05/15/2025. TECHNIQUE: A sonogram of the scrotum was performed assessing bonds-scale appearance and color Doppler flow. Spectral Doppler analysis of the arterial and venous flow were performed in the testes bilaterally. FINDINGS: RIGHT: Right testicle measures 4.3 x 3.0 x 3.0 cm, volume 20.2 mL. No focal testicular parenchymal lesions are visualized. Spectral Doppler analysis of the arterial and venous flow is normal in the right testis. Right epididymal head is normal in size. No significant right hydrocele or varicocele is seen. Right epididymal Doppler flow is normal. LEFT: Left testicle measures 4.8 x 2.3 x 3.3 cm, volume 19.3 mL. No focal testicular parenchymal lesions are visualized. Spectral Doppler analysis of the arterial and venous flow is normal in the left testis. Left epididymal head is normal in size. There is redemonstration of an epididymal head cyst measuring 1.7 x 1.9 x 1.7 cm. No significant left hydrocele or varicocele is seen. Left epididymal Doppler flow is normal. US/US scrotum doppler IMPRESSION: 1. Redemonstration of a simple epididymal head cyst measuring up to 1.9 cm. This is unchanged. 2. Previously seen heterogeneous echotexture of the testicles is not well appreciated on today's examination. The testicles appear normal on today's exam. No significant hyperemia of the epididymides. Electronically signed by: Ángel De Leon MD 06/30/2025 03:57 PM [facility] [place]
--- NOTE | ~2025-06-30 | US_ITS ---
EXAMINATION: US SCROTUM CLINICAL INFORMATION: Orchitis. Follow-up from 05/15/2025. COMPARISON: 05/15/2025. TECHNIQUE: A sonogram of the scrotum was performed assessing bonds-scale appearance and color Doppler flow. Spectral Doppler analysis of the arterial and venous flow were performed in the testes bilaterally. FINDINGS: RIGHT: Right testicle measures 4.3 x 3.0 x 3.0 cm, volume 20.2 mL. No focal testicular parenchymal lesions are visualized. Spectral Doppler analysis of the arterial and venous flow is normal in the right testis. Right epididymal head is normal in size. No significant right hydrocele or varicocele is seen. Right epididymal Doppler flow is normal. LEFT: Left testicle measures 4.8 x 2.3 x 3.3 cm, volume 19.3 mL. No focal testicular parenchymal lesions are visualized. Spectral Doppler analysis of the arterial and venous flow is normal in the left testis. Left epididymal head is normal in size. There is redemonstration of an epididymal head cyst measuring 1.7 x 1.9 x 1.7 cm. No significant left hydrocele or varicocele is seen. Left epididymal Doppler flow is normal. US/US scrotum IMPRESSION: 1. Redemonstration of a simple epididymal head cyst measuring up to 1.9 cm. This is unchanged. 2. Previously seen heterogeneous echotexture of the testicles is not well appreciated on today's examination. The testicles appear normal on today's exam. No significant hyperemia of the epididymides. Electronically signed by: Ángel De Leon MD 06/30/2025 03:57 PM [facility] [place]
--- OUTSIDE RECORDS SUMMARY | 2025-06-30 20:20 | XMS_ITS | Data Portability ---
Author Organization [place] - [facility], Allergy Address [address] [address] Care Team Providers Care Automobile Service Writer Name Role Phone NILAY KENNEDY Primary Care [...] that Dr. William is in the office. [email or web address] Not available 12/21/2023 10:29:16 02/08/2024 02/08/2024 Canal polyp resolved. Asymmetric hearing loss. Differential reviewed with patient to include asymmetric noise exposure versus retrocochlear pathology to include acoustic neuroma versus others. Reviewed utility of and rationale for MRI of IACs. 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 Recommend hearing protection. For the tinnitus unfortunately [...] that cerumen is a natural antibiotic, antifungal, roving can tender, and moisturizer of the delicate external auditory canal skin. The use of Q-tips strips away this natural protection and makes the ear canal skin more likely to become itchy, irritated or become infected. There is also the risk of trauma to the tympanic membranes as well. We discussed proper aural hygiene techniques to maintain the health of the external ears. Not available 02/12/2025 13:23:59 Plan of Treatment [...] 024 sara 32 [facility]/Pharmacy #[id number], [address] [facility], [place], [address], 02/08/2024 11:45:24 TobraDex 0.3 %-0.1 % eye drops,echo pension 2023 025 [facility]/Pharmacy #[id number], [address] [facility], [place], [address], 08/15/2024 08:57:45 Patient TargetsNo targets recorded. Patient InstructionsNo instructions recorded. Reason for Referral None Reported. Results Created Date Observation Date Name Description Value Unit Range Abnormal Flag Note LastModifiedBy Organization Detail LastModifiedTime 02/11/20 24 audio gram No observ ation record ed. [email or web address] Not Available 01/21 16:17:16 08/15/19 audio gram No observ ation record ed. BARCODE Not Available 2024 10:18:04 Result Notes None recorded. Problems Name Problem SNOMED Code Status Onset Date Resolution Date Notes Provider Name and Address Organization Details Recorded Time Hypertens jody disorder 02563181 Active 2023 Jammie barlow [place] - [facility] 4 10:56:52 Otorrhea of left ear 71189695943 82950 Active 2023 OSCAR LO MD [address] [facility], [place], [address] , [place] - [facility] 4 11:01:34 Polyp of left external ear canal 38343026011 47814 Completed 202302/12/2025 ED WILLIAM MD [address] [facility] [address], [place], [address] , [place] - [facility] 5 13:18:51 Cholestea marissa of external ear 44115454 Active 2023 ED WILLIAM MD [address], [place], [address] , [place] - [facility] 4 10:54:03 Bilateral tinnitus 81005839068 02 Active [address], [place], [address] , [place] - [facility] 4 12:27:34 Sensorine ural hearing loss in left ear 58904606593 109 Active [address] [facility],[place] [address], [facility] [place], [address] , [facility] - [facility] 4 12:27:52 Obstructi ve sleep apnea syndrome 02506243 Active 2024 ED WILLIAM MD [address] [facility],[place] [address], [facility] [place], [address] , [facility] - [facility] 5 13:22:33 Problem Notes None recorded. Procedures Surgical History Date Name Laterality Status Provider Name and Address Organization Details Recorded Time 5 Debridement of Ear canal left completed ED WILLIAM MD [address] [facility],[place] [address], [place], [address], [facility] - [facility] 02/12/2025 13:20:39 5 Air & Speech Audio with Tymps - 50779, 60470 & 75770 completed DA ARREOLA AUD [address] [facility],[place] [address], [place], [address], [facility] - [facility] 08/15/2024 09:15:17 4 Comp Audio with Tymps - 47686 & 85170 completed THO BUSBY [address] [facility],[place] [address], [place], [address], [facility] - [facility] 02/08/2024 12:27:18 4 Debridement of Ear canal left completed ED WILLIAM MD [address] [facility],[place] [address], [place], [address], [facility] - [facility] 01/08/2024 10:56:54 Imaging Results None recorded. Procedure [...] Updated DateTime 08/15/2024 177.8 cm 33.7 kg/m2 391578.21 g Tara Saez [place] - [facility] 08/15/2024 09:53:35 Date Recorded Body height Body mass index (BMI) Body weight Provider Name and Address Organization Details Last Updated DateTime 12/21/2023 177.8 cm 33 kg/m2 184322.25 g Emmie Alvarez [place] - [facility] 12/21/2023 09:48:45 Date Recorded Body height Body mass index (BMI) Body weight Provider Name and Address Organization Details Last Updated DateTime 01/08/2024 177.8 cm 33 kg/m2 782485.25 g Lavelle Campa [place] - [facility] 01/08/2024 10:05:44 Date Recorded Body height Body mass index (BMI) Body weight Provider Name and Address Organization Details Last Updated DateTime 02/12/2025 177.8 cm 34.4 kg/m2 385512.17 g SARAY PEGGY [place] - [facility] 02/12/2025 13:11:35 Social History None recorded. Functional Status Question Answer Note LastModified by Organizat ion Details LastModified Time Do you or have you ever used any other forms of tobacco or nicotine? No [email or web address] Information not available 12/07/2023 What is your level of alcohol consumption? Occasional [email or web address] Information not available 12/07/2023 Mental Status None recorded. Family History Nothing Reported. Medical History Condition Response Hypertension Y Immunizations Vaccine Type Date Status Note Provider Nam e and Address Organization Details Recorded Time influenza nasal, unspecified formulation 3 completed Jammie barlow [place] - [facility] 12/07/2023 10:55:15 Past Encounters Encounter ID Performer Location Encounter Start Date Encounter Closed Date Diagnosis/Indication Diagnosis SNOMED-CT Code Diagnosis ICD10 Code Diagnosis IMO Codes Diagnosis Note [id number] OSCAR LO MD [facility] [address] [address] 12/07/2023 10:15:49 12/07/2023 11:07:26 Otorrhea of left ear [id number] 233975 H92.12 Left-sided otorrhea has been present for [...] dry ear precaution s. Follow-up with physician real estate legal assistant for reassessme nt in approximat yehuda 2 weeks. At that time considerat ion could be given to adjustment of medication s, further debridemen t, removal of polyp. Eventually when the infection is under control investigat ion of hearing testing will be helpful Polyp of l eft external ear canal 0852251850 466558 H61.892 [id number] KIERAN REYNOLDS PA-C [facility] [address] [address] 12/21/2023 09:35:38 12/21/2023 10:20:20 Otorrhea of left ear 1926983149 180899 H92.12 Polyp of l eft external ear canal 5505757606 035022 H61.892 [id number] ED WILLIAM MD [facility] [address] [address] 01/08/2024 09:52:47 01/08/2024 10:56:20 Cholesteatoma of external ear 84054182 H60.42 Patient had a large deeply impacted [...] Polyp of l eft external ear canal 6380593635 498004 H61.892 The inflammato ry polyp appears smaller than previous descriptio ns, hopefully this will resolve with treatment with the above-ment ioned regimen. [id number] CHADWICK VARGAS PA-C [facility] [address] [address] 02/08/2024 11:32:35 02/08/2024 12:39:17 Bilateral tinnitus 6906320852 102 H93.13 Sensorineu ral hearing loss in left ear 6946520781 9109 H90.42 Audiologic al evaluation results: Right ear: Normal hearing with excellent word recognitio n. Left ear: Normal sloping to a mild sensorineu ral hearing loss with excellent word recognitio n. Tympanomet ry: Right Ear:Type A Left Ear:Type A [id number] CHADWICK VARGAS PA-C [facility] [address] [address] 08/15/2024 08:51:11 08/15/2024 10:04:38 Bilateral tinnitus 5763502611 102 H93.13 Audiologic al evaluation results: Right ear:Normal hearing. Left ear:Normal hearing. Tympanomet ry:Right Ear: Type ALeft Ear: Type A Cholesteat kandace of external ear 41719458 H60.42 Polyp of l eft external ear canal 7726085537 392389 H61.892 [id number] ED WILLIAM MD [facility] [address] [address] 02/12/2025 13:01:07 02/12/2025 13:24:55 Cholesteatoma of external ear 94119990 H60.42 Obstructiv e sleep apnea syndrome 43152068 G47.33 [id number] Patient recently diagnosed with obstructiv e sleep [...] 1 [employer] - [employer] (PPO) Oliverio Elliot [id number] Oliverio Elliot 02/12/2025 1 [employer] Oliverio Elliot [id number] Oliverio Elliot 02/12/2025 1 [employer] (PPO) [id number] Oliverio Elliot [id number] Oliverio Elliot 04/07/2025 1 [employer] (PPO) [id number] Oliverio W Elliot [id number] Oliverio Elliot 02/12/2025 2 [employer] [id number] Oliverio Elliot [id number] Oliverio Elliot 02/12/[address] [facility]-[employer] - CIGNA Oliverio Elliot [id number] Oliverio Elliot 02/12/2025 1 [employer] - C PPO (PPO) [id number] Oliverio W Elliot [id number] Oliverio Elliot Notes Date Note Type Note Provider Name and Address Organization Details Recorded Time 12/21/2023 text/html ROS as noted in the [facility] 48-year-old male presents for follow-up of left sided otorrhea and ear canal polyp. He has been using TobraDex. No further otorrhea. Denies otalgia. Hearing continues to feel decreased on the left. Denies prior otologic surgeries or history of chronic ear infections. OSCAR LO MD [address] [place] [address], [address], [facility] - [facility] 12/21/2023 18:05:17 01/08/2024 text/html ROS as noted in the [facility] 48-year-old male presents for follow-up of left [...] New onset tinnitus ED WILLIAM MD [address] [facility],[address], [address], 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 XOCHITL NORTON MD [address] [facility],[address], [address], [facility] 02/09/2024 05:12:33 08/15/2024 text/html ROS as noted in the [facility] 49 year old male presents for re-evaluation [...] has not changed. SHERIF FRAZIER MD [address] [facility],[address], [address], [facility] 08/15/2024 12:41:15 02/12/2025 text/html ROS as noted in the [facility] 50 year old male presents for re-evaluation [...] his nose and throat. ED WILLIAM MD [address] [place] [address], [address], [facility] - [facility] 02/12/2025 13:24:05
--- OUTSIDE RECORDS SUMMARY | 2025-06-30 20:20 | XMS_ITS | Patient Health Record ---
Author Organization [facility] Address [address] [place] [address] Care Team Providers Care Regulatory Administrator Name Role Phone Terrence MONCADA, [place] Primary Care Provider UnaRebeca Doyle Unavailable [phone] Reason For Referral No Information Medications Medication [...] 300 MG TAKE 1 CAPSULE BY [place] [facility] AT BEDTIME Active Social History Tobacco [...] Date Coverage End Date Cigna [address] [place], [place] [address] [id number] Isma Zarate Self - patient is the insured Medical (General) History Surgical History Surgery Date(Month/Year) Tooth extraction 2018
== END 2025-06-30 14:24 | disposition home or self-care (01) ==
LOC: HO.US 14:23
PROVIDERS: PCP Internal Medicine; Visit Provider Internal Medicine
DX: N45.2 Orchitis (principal)
CPT/HCPCS: 76870; 93975

== ENCOUNTER → 2025-06-30 14:25 | Outpatient (BNV) | payer OTHER, SELFPAY | PROVIDERS: PCP Internal Medicine; Visit Provider Radiology Diagnostic Radiology | DX: N50.3 Cyst of epididymis (principal) | CPT/HCPCS: 76870; 93975 ==

== ENCOUNTER 2025-07-13 08:05 | Outpatient (AMB) | payer OTHER, SELFPAY ==
--- OUTSIDE RECORDS SUMMARY | 2025-07-13 08:11 | XMS_ITS | Patient Health Record ---
Author Organization [facility] Address [address] [place] [address] Care Team Providers Care Picture Framer Name Role Phone Terrence MONCADA, [place] Primary Care Provider UnaRebeca Doyle Unavailable [phone] Reason For Referral No Information Medications Medication [...] 300 MG TAKE 1 CAPSULE BY MO [facility] AT BEDTIME Active Social History Tobacco [...] Date Coverage End Date Cigna [address] [place], [place] [address] [id number] Isma Zarate Self - patient is the insured Medical (General) History Surgical History Surgery Date(Month/Year) Tooth extraction 2018
--- OUTSIDE RECORDS SUMMARY | 2025-07-13 08:11 | XMS_ITS | Data Portability ---
Author Organization [place] - [facility], Allergy Address [address] [address] Care Team Providers Care Laborer [employer] Name Role Phone NILAY KENNEDY Primary Care [...] that Dr. William is in the office. [email or web address] Not available 12/21/2023 10:29:16 02/08/2024 02/08/2024 Canal polyp resolved. Asymmetric hearing loss. Differential reviewed with patient to include asymmetric noise exposure versus retrocochlear pathology to include acoustic neuroma versus others. Reviewed utility of and rationale for MRI of IACs. 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 Recommend hearing protection. For the tinnitus unfortunately [...] that cerumen is a natural antibiotic, antifungal, nuclear technician, and moisturizer of the delicate external auditory canal skin. The use of Q-tips strips away this natural protection and makes the ear canal skin more likely to become itchy, irritated or become infected. There is also the risk of trauma to the tympanic membranes as well. We discussed proper aural hygiene techniques to maintain the health of the external ears. [email or web address] Not available 02/12/2025 13:23:59 Plan of Treatment [...] ear drops,echo pension 2023 024 sara 32 [facility]/Pharmacy #[id number], [address], [place], [address], 02/08/2024 11:45:24 TobraDex 0.3 %-0.1 % eye drops,echo pension 2023 025 [facility]/Pharmacy #[id number], [address] [facility], [place], [address], 08/15/2024 08:57:45 Patient TargetsNo targets recorded. Patient InstructionsNo instructions recorded. Reason for Referral None Reported. Results Created Date Observation Date Name Description Value Unit Range Abnormal Flag Note LastModifiedBy Organization Detail LastModifiedTime 02/11/20 24 audio gram No observ ation record ed. [email or web address] Not Available 01/21 16:17:16 08/15/19 audio gram No observ ation record ed. [email or web address] Not Available 2024 10:18:04 Result Notes None recorded. 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 Jammie barlow [place] - [facility] 4 10:56:52 Otorrhea of left ear 59181529937 05226 Active 2023 OSCAR LO MD 100 [facility] [place], [place], [address] , [place] - [facility] 4 11:01:34 Polyp of left external ear canal 76618583920 87254 Completed 202302/12/2025 ED WILLIAM MD 100 [facility] [place], [place], [address] , [place] - [facility] 5 13:18:51 Cholestea mairssa of external ear 13000636 Active 2023 ED WILLIAM MD [address] [facility] [address], [place], [address] , [place] - [facility] 4 10:54:03 Bilateral tinnitus 20024866818 02 Active [address], [place], [address] , [place] - [facility] 4 12:27:34 Sensorine ural hearing loss in left ear 75327531657 109 Active 2023 CARTER SHAW AUD 100 [facility],[place] [address], [facility] [place], [address] , [facility] - [facility] 4 12:27:52 Obstructi ve sleep apnea syndrome 83990833 Active 2024 ED WILLIAM MD 100 [facility],[place] [address], [facility] [place], [address] , [facility] - [facility] 5 13:22:33 Problem Notes None recorded. Procedures Surgical History Date Name Laterality Status Provider Name and Address Organization Details Recorded Time 5 Debridement of Ear canal left completed ED WILLIAM MD 100 [facility],[place] [address], [place], [address], [facility] - [facility] 02/12/2025 13:20:39 5 Air & Speech Audio with Tymps - 89736, 43150 & 50062 completed DA ARREOLA AUD 100 [facility],[place] [address], [place], [address], [facility] - [facility] 08/15/2024 09:15:17 4 Comp Audio with Tymps - 42793 & 21602 completed THO BUSBY 100 [facility],[place] [address], [place], [address], [facility] - [facility] 02/08/2024 12:27:18 4 Debridement of Ear canal left completed ED WILLIAM MD 100 [facility],[place] [address], [place], [address], [facility] - [facility] 01/08/2024 10:56:54 Imaging Results None recorded. Procedure [...] Updated DateTime 08/15/2024 177.8 cm 33.7 kg/m2 484432.21 g Tara Saez [place] - [facility] 08/15/2024 09:53:35 Date Recorded Body height Body mass index (BMI) Body weight Provider Name and Address Organization Details Last Updated DateTime 12/21/2023 177.8 cm 33 kg/m2 204716.25 g Emmie Alvarez [place] - [facility] 12/21/2023 09:48:45 Date Recorded Body height Body mass index (BMI) Body weight Provider Name and Address Organization Details Last Updated DateTime 01/08/2024 177.8 cm 33 kg/m2 512665.25 g Lavelle Campa [place] - [facility] 01/08/2024 10:05:44 Date Recorded Body height Body mass index (BMI) Body weight Provider Name and Address Organization Details Last Updated DateTime 02/12/2025 177.8 cm 34.4 kg/m2 287745.17 g SARAY PEGGY [place] - [facility] 02/12/2025 13:11:35 Social History None recorded. Functional Status Question Answer Note LastModified by Organizat ion Details LastModified Time Do you or have you ever used any other forms of tobacco or nicotine? No [email or web address] Information not available 12/07/2023 What is your level of alcohol consumption? Occasional Information not available 12/07/2023 Mental Status None recorded. Family History Nothing Reported. Medical History Condition Response Hypertension Y Immunizations Vaccine Type Date Status Note Provider Nam e and Address Organization Details Recorded Time influenza nasal, unspecified formulation 3 completed Jammie barlow [place] - [facility] 12/07/2023 10:55:15 Past Encounters Encounter ID Performer Location Encounter Start Date Encounter Closed Date Diagnosis/Indication Diagnosis SNOMED-CT Code Diagnosis ICD10 Code Diagnosis IMO Codes Diagnosis Note [id number] OSCAR OL MD [facility] [address] [address] 12/07/2023 10:15:49 12/07/2023 11:07:26 Otorrhea of left ear [id number] 191890 H92.12 Left-sided otorrhea has been present for [...] dry ear precaution s. Follow-up with physician cable splicer assistant for reassessme nt in approximat yehuda 2 weeks. At that time considerat ion could be given to adjustment of medication s, further debridemen t, removal of polyp. Eventually when the infection is under control investigat ion of hearing testing will be helpful Polyp of l eft external ear canal 7485664511 781452 H61.892 [id number] KIERAN REYNOLDS PA-C [facility] [address] [address] 12/21/2023 09:35:38 12/21/2023 10:20:20 Otorrhea of left ear 2964802028 969107 H92.12 Polyp of l eft external ear canal 2679115802 124265 H61.892 [id number] ED WILLIAM MD [facility] [address] [address] 01/08/2024 09:52:47 01/08/2024 10:56:20 Cholesteatoma of external ear 33997937 H60.42 Patient had a large deeply impacted [...] Polyp of l eft external ear canal 4242916891 759431 H61.892 The inflammato ry polyp appears smaller than previous descriptio ns, hopefully this will resolve with treatment with the above-ment ioned regimen. [id number] CHADWICK VARGAS PA-C [facility] [address] [address] 02/08/2024 11:32:35 02/08/2024 12:39:17 Bilateral tinnitus 4149457488 102 H93.13 Sensorineu ral hearing loss in left ear 0051208639 9109 H90.42 Audiologic al evaluation results: Right ear: Normal hearing with excellent word recognitio n. Left ear: Normal sloping to a mild sensorineu ral hearing loss with excellent word recognitio n. Tympanomet ry: Right Ear:Type A Left Ear:Type A [id number] CHADWICK VARGAS PA-C [facility] [address] [address] 08/15/2024 08:51:11 08/15/2024 10:04:38 Bilateral tinnitus 4347584403 102 H93.13 Audiologic al evaluation results: Right ear:Normal hearing. Left ear:Normal hearing. Tympanomet ry:Right Ear: Type ALeft Ear: Type A Cholesteat kandace of external ear 13406671 H60.42 Polyp of l eft external ear canal 8176198073 378019 H61.892 [id number] ED WILLIAM MD [facility] [address] [address] 02/12/2025 13:01:07 02/12/2025 13:24:55 Cholesteatoma of external ear 76741829 H60.42 Obstructiv e sleep apnea syndrome 74958049 G47.33 [id number] Patient recently diagnosed with obstructiv e sleep [...] 1 [employer] - [employer] (PPO) Oliverio Elliot [id number] Oliverio Elliot 02/12/2025 1 [employer] Oliverio Elliot [id number] Oliverio Elliot 02/12/2025 1 [employer] (PPO) [id number] Oliverio Elliot [id number] Oliverio Elliot 04/07/2025 1 [employer] (PPO) [id number] Oliverio W Elliot [id number] Oliverio Elliot 02/12/2025 2 [employer] [id number] Oliverio Elliot [id number] Oliverio Elliot 02/12/2025 1 [facility]-[employer] - CIGNA Oliverio Elliot [id number] Oliverio Elliot 02/12/2025 1 [employer] - C PPO (PPO) [id number] Oliverio W Elliot [id number] Oliverio Elliot Notes Date Note Type Note Provider Name and Address Organization Details Recorded Time 12/21/2023 text/html ROS as noted in the [facility] 48-year-old male presents for follow-up of left sided otorrhea and ear canal polyp. He has been using TobraDex. No further otorrhea. Denies otalgia. Hearing continues to feel decreased on the left. Denies prior otologic surgeries or history of chronic ear infections. OSCAR LO MD [address] [place] [address], [address], [facility] - [facility] 12/21/2023 18:05:17 01/08/2024 text/html ROS as noted in the [facility] 48-year-old male presents for follow-up [...] New onset tinnitus ED WILLIAM MD 100 [facility],[address], [address], [facility] 01/08/2024 11:00:04 02/08/2024 text/html ROS as noted in the [facility] 49 year old male presents [...] in the left greater than right ear. 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 XOCHITL NORTON MD 100 [facility],[address], [address], [facility] 02/09/2024 05:12:33 08/15/2024 text/html ROS as noted in the [facility] 49 year old male presents [...] has not changed. SHERIF FRAZIER MD 100 [facility],[address], [address], [facility] 08/15/2024 12:41:15 02/12/2025 text/html ROS as noted in the [facility] 50 year old male presents [...] his nose and throat. ED WILLIAM MD [address] [place] [address], [address], [facility] - [facility] 02/12/2025 13:24:05
--- NOTE | 2025-07-13 08:23 | MHC.PC.OV ---
Vital Signs 07/13/25 08:25 Height 5 ft 11 in Weight 247 lb BMI 34.4 BP 136/68 Blood Pressure Location Lt brachial Position Sitting Respiration 18 Pulse 80 Pulse Source Pulse Oximeter Temp 98 F Temp Source Temporal Artery Scan Pulse Oximetry (%) 98 Oxygen Delivery Method Room Air Intake Visit Reasons: 6 week f/u Special Procedures Tech Required: No Accompanied by: Self / Same As Patient Allergies No Known Allergies Allergy (Verified 07/13/25 08:24) Medication List - Last Reconciled 07/13/25 by Sven Delcid MD amlodipine 5 mg PO DAILY 90 days aspirin (Adult Low Dose Aspirin) 81 mg PO DAILY cholecalciferol (vitamin D3) 50 mcg PO DAILY 3 months MDD 50mcg hydralazine 50 mg PO BID 90 days ibuprofen 800 mg PO Q8H PRN 14 days losartan 100 mg PO DAILY semaglutide (weight loss) (Wegovy) 0.25 mg (0.5 mL) subcut QWEEK semaglutide (weight loss) (Wegovy) 1 mg (0.5 mL) subcut Q7D tamsulosin 0.4 mg PO DAILY 90 days trazodone 50 mg PO BEDTIME PRN 90 days Tobacco use date assessed: 06/01/25 Dental Screening Dental Screen Date: 06/01/25 HPI HPI Comments History of Present Illness Details The patient is a 50 year old male presenting for a follow-up visit for testicular discomfort and management of medication side effects. He was initially seen on 05/15 for testicular discomfort, and an ultrasound at that time raised suspicion for orchitis. He was treated with ceftriaxone and levofloxacin, and his discomfort has since resolved. He underwent repeat US on 06/30 which showed resolution of the orchitis. The patient is also being treated for weight management by another provider and is on Wegovy. He reports experiencing nausea the day after taking the injection and has tried an [id number]-ssv-[id number] medication with minimal effect. Results reviewed: - Testicular Ultrasound (05/15/2023): Showed slightly heterogeneous testicular echotexture suspicious for orchitis, a prominent right epididymal tail with echogenic foci suggestive of changes from old epididymitis, and a small right hydrocele. - Testicular Ultrasound (06/30/2023): Showed resolution of the previously seen heterogeneous texture of the testicles, which now appear normal. - An unchanged simple epididymal head cyst measuring up to 1.9 cm was demonstrated. [facility] Medical History (Updated 07/13/25 @ 08:46 by Sven Delcid MD) DJD (degenerative joint disease) BMI 35.0-35.9,adult Vitamin D deficiency Insomnia Obstructive sleep apnea Impaired fasting glucose Mixed hyperlipidemia GERD without esophagitis Obesity (BMI 30-39.9) BPH (benign prostatic hyperplasia) Dyslipidemia Essential hypertension Surgical History H/O colonoscopy History of prostate surgery Family History Father Diabetes Hypertension Mother Hypertension Family/Other Asthma Social History Housing: House Alcohol intake: current Alcohol intake frequency: holidays/special occasions only Alcohol type: beer Patient Tobacco Use Status: Former Tobacco user Tobacco use type: Cigarette e-Cigarette/Vaping Use: Never Used Second Hand Smoke Exposure: No service: No Current occupational status: employed Current occupational exposures/hazards: No Cognitive needs: No Hearing needs: No Vision needs: No Questionnaire Thrive Questionnaire Date Thrive assessed: 02/19/25 I am a: Patient What is your living situation today?: I have a steady place to live Within the past 12 months, did the food you bought not last and you didn't have the money to get more?: Never true Within the past 12 months, did you worry whether your food would run out before you got money to buy more?: Never true Do you have trouble paying for medicines?: No Do you have trouble getting transportation to medical appointments?: No Do you have trouble paying your heating and electricity bill?: No Do you have trouble taking care of your child, family member or friend?: No Do you have trouble with day-to-day activities such as bathing, preparing meals, shopping, managing finances, etc.?: No Are you currently unemployed and looking for a job?: No Are you interested in more education?: No Currently or been in a relationship where the following occur: No concerns reported THRIVE Score: 0 ARLEEN-7 AMB Questionnaire ARLEEN-7 Date ARLEEN - 7 assessed: 06/01/25 Source: Developed by Drs. Robert Stephenson, NoelleLuan Jade and colleagues, with an educational vanessa from [employer]. Review of Systems Const Details: As per HPI. Physical exam (Primary Care) Vital Signs: Last Vital Signs Temp 98 F 07/13/25 08:25 Pulse 80 07/13/25 08:25 Resp 18 07/13/25 08:25 BP 136/68 07/13/25 08:25 Pulse Ox 98 07/13/25 08:25 Oxygen Delivery Method Room Air 07/13/25 08:25 BMI result Body Mass Index 34.4 Tobacco/Smoking Status: Tobacco use Status Tobacco use date assessed 06/01/25 07/13/25 08:23 Patient Tobacco Use Status Former Tobacco user 07/13/25 08:23 Tobacco use type Cigarette 07/13/25 08:23 e-Cigarette/Vaping Use Never Used 07/13/25 08:23 Thrive Assessment: Date of Thrive Assessment Date Thrive assessed 02/19/25 07/13/25 08:23 Currently or been in a relationship where the following occur: No concerns reported Const Other: Pertinent findings are in BOLD GENERAL APPEARANCE NAD, activity normal for age, well developed/ well nourished, no cyanosis, pallor, or diaphoresis. EYES lids/conjunctiva normal. EARS/NOSE/THROAT Mucous membranes moist, nares normal, lips/teeth normal uvula midline without oral pharyngeal erythema, exudate or swelling TMs normal bilaterally. No lymphangitis/lymphedema. HEAD/NECK normocephalic atraumatic, no facial trauma, neck is supple. RESPIRATORY respiratory effort normal, speaks in full sentences, no tripod position, no accessory muscle use. Lungs clear to auscultation without rhonchi, wheezes, rales CARDIAC Regular rate and rhythm, no edema. ABDOMINAL Soft, ND/NT. No evidence of fluid wave. No pulsatile masses on exam, rebound tenderness, Ward sign or pain over Mcburney's point. MUSCLES/EXTREMITIES No abnormal range of motion, no swelling. SKIN Warm, pink and dry. No rashes, dermatoses, petechiae or lesions. NEUROLOGICAL Speech is clear and appropriate. Normal level of consciousness. Gait and coordination are normal. 5/5 strength in all extremities. PSYCH Normal mood and affect. Judgement/competence is appropriate Results Reviewed Results Reviewed: - Testicular Ultrasound (05/15/2023): Showed slightly heterogeneous testicular echotexture suspicious for orchitis, a prominent right epididymal tail with echogenic foci suggestive of changes from old epididymitis, and a small right hydrocele. - Testicular Ultrasound (06/30/2023): Showed resolution of the previously seen heterogeneous texture of the testicles, which now appear normal. - An unchanged simple epididymal head cyst measuring up to 1.9 cm was demonstrated. Coding Level of Care Code Est Pt Level 4 (94767) Diagnoses Orchitis N45.2 Nausea R11.0 Time Spent (min) 20 Assessment & Plan Assessment & Plan (1) Orchitis: Code(s): N45.2 - Orchitis Category: Medical Plan: - The patient's orchitis has resolved following a course of ceftriaxone and levofloxacin, as confirmed by a follow-up ultrasound on 06/30 which showed resolution of testicular inflammation. - An unchanged 1.9 cm simple epididymal head cyst and a small right hydrocele were noted on imaging. - The patient will proceed with his scheduled urology follow-up on the of the month for further evaluation. (2) Nausea: Code(s): R11.0 - Nausea Category: Medical Plan: - The patient reports nausea the day after his Wegovy injections, which is an expected side effect. - Prescribed ondansetron 4 mg, to be taken as one tablet every 8 hours as needed for nausea. - A prescription for 14 tablets will be sent. Plan I reviewed the patient's recent ultrasound results, explaining that the scan from 06/30 confirmed resolution of the orchitis suspected on the 05/15 exam after his antibiotic treatment. I informed him that an unchanged 1.9 cm simple epididymal head cyst was still present and is considered benign, but advised him to keep his urology appointment at the end of the month for specialist follow-up. Regarding his nausea from Wegovy, I acknowledged this is an expected side effect and prescribed ondansetron 4 mg to be taken as needed. Medications: New ondansetron HCl 4 mg PO Q8H PRN 14 tabs 0RF nausea and vomiting
[2025-07-13 08:25] VITALS: BP 136/68; PULSE 80; RESP 18; TEMP 36.6; O2SAT 98; BMI 34.4
== END 2025-07-13 08:41 | disposition home or self-care (01) ==
LOC: HO.HMCH 08:06
PROVIDERS: PCP Internal Medicine; Visit Provider Internal Medicine
DX: N45.2 Orchitis (principal); R11.0 Nausea

== ENCOUNTER 2025-07-13 13:58 | Outpatient (AMB) | payer OTHER, SELFPAY ==
--- NOTE | 2025-07-13 14:07 | MHC.OFFVIS ---
Vital Signs 07/13/25 14:08 Height 5 ft 11 in Weight 252 lb BMI 35.1 BP 118/66 Blood Pressure Location Lt brachial Position Sitting Pulse 83 Pulse Source Pulse Oximeter Pulse Oximetry (%) 98 Oxygen Delivery Method Room Air Intake Visit Reasons: 6 months F/U Intake Note: Patient presents follow up SHANT/RLS. Compliance in chart(89/90days, >=4hrs-94%, Average Usage-7hr 19min, Pressure-12cm, Med Leaks-76.4, AHI-0.5) [employer] Required: No Accompanied by: Self / Same As Patient Allergies No Known Allergies Allergy (Verified 07/13/25 14:07) HPI Comments Details: 50 year old r. handed male presents for f/u of obstructive sleep apnea. 07/30/2024 HST c/w AHI of 20 and Oxygen Nadirs to 83% with periodic limb movements of sleep. 10/15/2024 Titration study completed breathing and oxygen stabilized at 10-13cm H20. Start CPAP at [id number]. SHANT compliance report 03/2025-06/2025 total usage 89/90 days >4hours is 94% avg use is 7hours and 19min Press are [id number] Medium leaks avg 76.4 -119.7 AHI is 0.5/hr He washes his mask, rinses the hoses, changes filters and fills machine with distilled water. He is sleeping much better then before, and does feel more energetic when he wakes up in the morning. He thinks he is a nose breather and continues to have leaks averaging 110/min with bloating and belching at night. He has tried a large mask, which was getting filled with condensation, so then tried nasal pillows and leaks continued to be high. He was a former smoker and had PFTs done in 09/2021, he says he still gets anxious with the mask on his face, and feels trapped. He denies morning headaches, parasomnias or abnormal sleep disorders. He notices his RLS symtpoms have significantly improved since he started wearing compression stockings. He still has an occasional night of RLS, however most of the time he is able to sleep comfortably through the night. His memory is good, he occasionally forgets tasks, and needs reminders. His mood is stable, and his diet is good. [facility] Medical History DJD (degenerative joint disease) BMI 35.0-35.9,adult Vitamin D deficiency Insomnia Obstructive sleep apnea Impaired fasting glucose Mixed hyperlipidemia GERD without esophagitis Obesity (BMI 30-39.9) BPH (benign prostatic hyperplasia) Dyslipidemia Essential hypertension Surgical History H/O colonoscopy History of prostate surgery Family History Father Diabetes Hypertension Mother Hypertension Family/Other Asthma Social History Housing: House Alcohol intake: current Alcohol intake frequency: holidays/special occasions only Alcohol type: beer Patient Tobacco Use Status: Former Tobacco user Tobacco use type: Cigarette e-Cigarette/Vaping Use: Never Used Second Hand Smoke Exposure: No service: No Current occupational status: employed Current occupational exposures/hazards: No Cognitive needs: No Hearing needs: No Vision needs: No Physical Exam Vital Signs: Last Vital Signs Pulse 83 07/13/25 14:08 BP 118/66 07/13/25 14:08 Pulse Ox 98 07/13/25 14:08 Oxygen Delivery Method Room Air 07/13/25 14:08 BMI result Body Mass Index 35.1 Const General: cooperative, comfortable and no acute distress Nutritional Appearance: obese (BMI is 35) Orientation/consciousness: patient oriented x3 Eyes Pupils: Equal, round and reactive pupils present Neck Neck: Yes full ROM and Yes other (c/o l. shoulder pain on rotation) Resp Effort & Inspection: normal respiratory effort and able to speak in complete sentences Neuro General: patient oriented x3 and moves all extremities Cranial nerves: Yes CN's II-XII intact bilaterally, Yes Facial sensation intact/muscles of mastication intact, Yes Equal, round and reactive pupils present, Yes Normal accommodation reflex present, Yes Bilaterally intact EOM present, Yes Nystagmus not present, Yes Normal facial strength present, Yes Midline tongue present, Yes Ability to bilaterally rotate head present and Yes Ability to bilaterally elevate shoulders present Gait exam (Neuro): Normal gait present Motor exam (neuro): 5/5 motor strength present throughout, no tremor noted and Normal motor muscle tone present throughout Deep tendon reflexes (DTR's): Right triceps reflex intensity grade: 2+, Left triceps reflex intensity grade: 2+, Rt Biceps (C5, C6): 2+, Left biceps reflex intensity grade: 2+, Right brachioradialis reflex intensity grade: 2+, Left brachioradialis reflex intensity grade: 2+, Right patellar reflex intensity grade: 2+ and Left patellar reflex intensity grade: 2+ Psych Thought process: Normal thought process present Thought content: Normal thought content present Assessment & Plan Assessment & Plan (1) Obstructive sleep apnea: Comment: compliant on cpap therapy Code(s): G47.33 - Obstructive sleep apnea (adult) (pediatric) Category: Medical (2) Restless leg syndrome, familial: Comment: improved Code(s): G25.81 - Restless legs syndrome Category: Medical (3) Low vitamin D level: Code(s): R79.89 - Other specified abnormal findings of blood chemistry Category: Medical (4) Belching: Code(s): R14.2 - Eructation Category: Medical (5) Bloating symptom: Code(s): R14.0 - Abdominal distension (gaseous) Category: Medical (6) Aerophagia: Code(s): F45.8 - Other somatoform disorders Category: Medical Plan SHANT has significantly improved with positive patient outcomes, continue therapy at [id number] as patient is experiencing good results. Labs Reviewed with patient, Ferritin, Vit D and b12 is normal, HDL is low start daily supplement of omega 3s in diet. Aerophagia, belching, bloating due to cpap use discussed lifestyle changes with diet, and decreasing carbonated drinks, changing out mask to improve leaks. to the full face mask. RLS will monitor the legs for numbness/ tingling and difficulty with sleep, continue compression stockings and elevate the feet as much as possible for a minimum of 2 hours a day. Dry mouth will refer to sleep dentistry for oral appliance evaluation though chin straps also may be helpful. F/u in 6 months Patient Instructions: Sleep Hygiene provided: set a scheduled bedtime and wake time to help regulate the circadian rhythm and balance the release of pituitary hormones. Sleep in a dark room, temperatures below 68 degrees, and no devices n bed. Limit caffeinated products 6 hours prior to bed, and limit fluids 2-4 hours prior to bed. Gentle night yoga, diffusing essential oils, and playing soft music can be relaxing. call the office with any questions or needs. Coding Level of Care Code Est Pt Level 4 (08820) Diagnoses Obstructive sleep apnea G47.33 Restless leg syndrome, familial G25.81 Low vitamin D level R79.89 Belching R14.2 Bloating symptom R14.0 Aerophagia F45.8
[2025-07-13 14:08] VITALS: BP 118/66; PULSE 83; O2SAT 98; BMI 35.1
== END 2025-07-13 15:00 | disposition home or self-care (01) ==
LOC: HO.HSMS 13:58
PROVIDERS: PCP Internal Medicine; Visit Provider Physician Assistant Medical
DX: G47.33 Obstructive sleep apnea (adult) (pediatric) (principal); G25.81 Restless legs syndrome; R79.89 Other specified abnormal findings of blood chemistry; R14.2 Eructation; R14.0 Abdominal distension (gaseous); F45.8 Other somatoform disorders
CPT/HCPCS: 99214